=== PATIENT | female | born 1930 | race Caucasian/White ===

== ENCOUNTER 2017-03-04 00:46 | Observation (INO) | payer MEDICARE ==
[2017-03-04] VITALS (8 sets, daily range): BP systolic 126–140; BP diastolic 58–77; PULSE 77–105; RESP 16–20; TEMP 95.7–98.3; O2SAT 94–100
[~2017-03-04 00:46] MED LIST: ADVAI100I PO; ALBU6.7H INH; CODE60 PO; CYCL-36 PO; DYAZ37.52 PO; ISOS20TA PO; LEVO100T4 PO; NITR0.4S SL; OMEP20TA39 PO; TIOT18I INH; TRAM50 PO; [UNRECOGNIZED DRUG - OTHER] PO
[2017-03-04] MEDS ORDERED: SODIUM CHLORIDE 0.9% FLUSH 5 ML FLUSH IV FLUSH PRN (02:30)
[2017-03-04 02:35] LABS: AUTOMATED NEUTROPHIL # 4.6 TH/MM3 (1.8-7.7); BASOPHIL % 0.5 % (0.0-2.0); EOSINOPHIL % 0.4 % (0.0-4.0); HEMATOCRIT 39.7 % (35.0-46.0); LYMPH % 17.5 % (9.0-44.0); LYMPHOCYTE # 1.1 TH/MM3 (1.0-4.8); MEAN CELL VOLUME 85.9 FL (80.0-100.0); MEAN CORPUSCULAR HEMOGLOBIN 28.1 PG (27.0-34.0); MEAN CORPUSCULAR HGB CONC 32.7 % (32.0-36.0); MONO % 5.5 % (0.0-8.0); NEUT % 76.1 % (16.0-70.0); PLATELET COUNT 94 TH/MM3 (150-450); RED BLOOD COUNT 4.62 MIL/MM3 (4.00-5.30)
[2017-03-04 02:37] LABS: HEMO FLAGS AUTO DIFF
[2017-03-04 02:40] LABS: BACTERIA, URINE MOD /hpf; BLOOD, URINE NEG (NEG); COMMENT (UR) CATH-CULTURE IND; CULTURE IF INDICATED CATH CULTURE IND; GLUCOSE,URINE NEG (NEG); KETONE, URINE NEG (NEG); MUCUS URINE FEW /lpf (OCC); NITRITE,URINE POS (NEG); PH, URINE 7.5 (5.0-8.5); SQUAMOUS EPITHELIAL CELL URINE <1 /hpf (0-5); URINE COLOR YELLOW (YELLW/STRAW)
[2017-03-04] MEDS ORDERED: SODIUM CHLOR 0.9% 1000 ML INJ 1,000 ML IV ONE ×2 (02:45→03:45)
[2017-03-04 02:46] LABS: APTT (PATIENT) 27.4 SEC (24.3-30.1); INTERNATIONAL NORMALIZED RATIO 1.1 RATIO; PROTHROMBIN TIME - PATIENT 12.3 SEC (9.8-11.6)
[2017-03-04] MEDS ORDERED: PRED10 PO (03:00)
[2017-03-04] MEDS ORDERED: METO5TAB3 PO (03:00)
[2017-03-04] MEDS ORDERED: KETOPROFEN TOPICAL ×2 (03:00)
[2017-03-04] MEDS ORDERED: KETO2CRE TOPICAL (03:00)
[2017-03-04] MEDS ORDERED: LORA-392 PO ×2 (03:00)
[2017-03-04] MEDS ORDERED: LIDO2GEL11 TOPICAL ×2 (03:00)
[2017-03-04] MEDS ORDERED: NITR0.4S SL ×2 (03:00)
[2017-03-04] MEDS ORDERED: HALOPERIDOL TOPICAL ×2 (03:00)
[2017-03-04] MEDS ORDERED: PROT40TA PO (03:00)
[2017-03-04] MEDS ORDERED: LEVO100T5 PO ×2 (03:00)
[2017-03-04] MEDS ORDERED: ULTR50TA5 PO (03:00)
[2017-03-04] MEDS ORDERED: MIRA3350 PO (03:00)
[2017-03-04] MEDS ORDERED: DULC10SU3 RECTAL ×2 (03:00)
[2017-03-04] MEDS ORDERED: VOLT1GEL4 (03:00)
[2017-03-04] MEDS ORDERED: BENA25CA4 (03:00)
[2017-03-04] MEDS ORDERED: ROBIDM5S (03:00)
[2017-03-04] MEDS ORDERED: CLAR10TA7 (03:00)
[2017-03-04] MEDS ORDERED: ISOS10TA3 PO ×2 (03:00)
[2017-03-04] MEDS ORDERED: LORAZEPAM TOPICAL ×2 (03:00)
[2017-03-04] MEDS ORDERED: ZOFR4TAB PO (03:00)
[2017-03-04] MEDS ORDERED: ALBU6.7H INH ×2 (03:00)
[2017-03-04 03:02] LABS: OVALOCYTES 1+ (NORMAL); PLATELET ESTIMATE SMEAR LOW (NORMAL); PLATELET MORPHOLOGY NORMAL (NORMAL); SCAN/DIFF AUTO DIFF CONFIRMED
[2017-03-04 03:09] LABS: ANION GAP 11 MEQ/L (5-15); AST (GOT) 50 U/L (15-37); BICARBONATE 29.3 MEQ/L (21.0-32.0); BLOOD UREA NITROGEN 17 MG/DL (7-18); CHLORIDE 94 MEQ/L (98-107); GLOMERULAR FILTRATION RATE 38 ML/MIN (>89); SODIUM (NA) 134 MEQ/L (136-145)
--- NOTE | 2017-03-04 03:12 | PD ---
HPI Chief Complaint: Medical Clearance Time Seen by Provider: 02:20 Travel History International Travel<30 days: No Contact w/Intl Traveler<30days: No Traveled to known affect area: No History of Present Illness HPI Is an 86 year-old woman presents to the emergency department brought in by EMS. She reportedly is on hospice, but doesn't want to be. She is in the process of quitting. She has most likely full-time caregivers. Caregiver states she's been more confused for the past several weeks. She was given antibiotics for UTI but hasn't been taking it. She reportedly flushed all her medications down the toilet. Caregiver reports that she also took 14 triamterene/HCTZ pills over the past day or so. Patient herself has no complaints at this time. She is a little bit disoriented, and a right much additional history. History Past Medical History Narrative Medical Hypothyroidism Anxiety Hypertension Heart disease Menopausal: Yes Social History Alcohol Use: No Tobacco Use: No Allergies-Medications (Allergen,Severity, Reaction): Coded Allergies: Augmentin (Verified Allergy, Severe, 03/04/17) Beta Blockers (Verified Allergy, Severe, 03/04/17) Flagyl (Verified Allergy, Severe, 03/04/17) Levaquin (Verified Allergy, Severe, 03/04/17) Morphine (Verified Allergy, Severe, 03/04/17) Potassium (Verified Allergy, Severe, RASH FROM POTASSIUM PILLS, 03/04/17) Seafood (Verified Allergy, Severe, 03/04/17) Lasix (Verified Allergy, Intermediate, 03/04/17) Amoxicillin (Verified Allergy, Unknown, 03/04/17) Spironolactone (Verified Allergy, Unknown, 03/04/17) Reported Meds & Prescriptions Reported Meds & Active Scripts Active Reported Simethicone 125 Mg Chw 125 Mg CHEW QID PRN Flexeril (Cyclobenzaprine HCl) 5 Mg Tab 5 Mg PO TID Bactroban Topical (Mupirocin) 22 Gm Cream 1 Applic TOPICAL BID Potassium Chloride Liq (Potassium Chloride) 20 Meq/15 Ml Soln 20 Meq PO TID Levsin-SL (Hyoscyamine Sulfate) 0.125 Mg Subl 0.125 Mg SL Q4H Lidoderm (Lidocaine) 5 % Adh..patch Demadex (Torsemide) 10 Mg Tab 10 Mg PO DAILY Senna-Tabs (Sennosides) 8.6 Mg Tab 8.6 Mg PO BID Miralax Powder (Polyethylene Glycol 3350 Powder) 17 Gm Powd 17 Gm PO DAILY Mix and dissolve one measuring cap-ful (17 grams) in water or juice. [Haloperidol Gel] 1 Ml TOPICAL Q4HR [Lorazepam Gel] 1 Ml TOPICAL Q4HR Voltaren (Diclofenac Sodium) 100 Gm Gel..gram. Metolazone 5 Mg Tab 5 Mg PO MONWEDFRI Prednisone 10 Mg Tab 10 Mg PO DAILY Benadryl Allergy (Diphenhydramine HCl) 25 Mg Cap Isosorbide Mononitrate 10 Mg Tab 10 Mg PO DAILY Take 2 doses 7 hours apart. Ativan (Lorazepam) 0.5 Mg Tab 0.5 Mg PO Q4H PRN Protonix (Pantoprazole Sodium) 40 Mg Tab 40 Mg PO DAILY Zofran (Ondansetron HCl) 4 Mg Tab 4 Mg PO Q6HR PRN Ultram (Tramadol HCl) 50 Mg Tab 25 Mg PO Q6H PRN Nitrostat SL (Nitroglycerin) 0.4 Mg Subl 0.4 Mg SL DIRECTED PRN 1 tablet under the tongue as needed for chest pain. Repeat every 5 minutes for a total of 3 DOSES or call 911 if NO relief. Levothyroxine (Levothyroxine Sodium) 100 Mcg Tab 100 Mcg PO DAILY [Ketoprofen Gel] 5 % TOPICAL TID Dulcolax Supp (Bisacodyl) 10 Mg Supp 10 Mg RECTAL DAILY PRN Proventil Hfa 6.7 GM Inh (Albuterol Sulfate) 90 Mcg/Act Aer 2 Puff INH Q4-6H PRN Claritin (Loratadine) 10 Mg Tablet Guaifenesin-Dm Liq (Guaifenesin/Dextromethorphan) 100-10 Mg/5 Ml Syrp Lidocaine Topical (Lidocaine HCl) 2 % Jel 1 Applic TOPICAL QID Ketoconazole Topical 2% Cream 1 Applic TOPICAL DAILY Review of Systems Except as stated in HPI: all other systems reviewed are Neg Physical Exam Narrative GENERAL: 86 year-old woman, confused but pleasant, no acute distress. SKIN: Focused skin assessment warm/dry. HEAD: Atraumatic. Normocephalic. EYES: Pupils equal and round. No scleral icterus. No injection or drainage. ENT: No nasal bleeding or discharge. Mucous membranes pink and moist. NECK: Trachea midline. No JVD. CARDIOVASCULAR: Regular rate and rhythm. No murmur appreciated. RESPIRATORY: No accessory muscle use. Clear to auscultation. Breath sounds equal bilaterally. GASTROINTESTINAL: Abdomen soft, non-tender, nondistended. Hepatic and splenic margins not palpable. MUSCULOSKELETAL: No obvious deformities. No clubbing. No cyanosis. No edema. NEUROLOGICAL: Awake and alert. Pleasantly confused. No gross deficits. PSYCHIATRIC: Appropriate mood and affect; insight and judgment normal. Data Data Last Documented VS Vital Signs Date Time Temp Pulse Resp B/P Pulse Ox O2 Delivery O2 Flow Rate FiO2 03/04/17 03:22 97 16 100 Room Air 03/04/17 00:52 98.3 140/76 Orders Complete Blood Count With Diff (03/04/17 02:26) Comprehensive Metabolic Panel (03/04/17 02:26) Prothrombin Time / Inr (Pt) (03/04/17 02:26) Act Partial Throm Time (Ptt) (03/04/17 02:26) Troponin I (03/04/17 02:26) Thyroid Stimulating Hormone (03/04/17 02:26) Urinalysis - C+S If Indicated (03/04/17 02:26) Lactic Acid Sepsis Protocol (03/04/17 02:26) Ecg Monitoring (03/04/17 02:26) Iv Access Insert/Monitor (03/04/17 02:26) Cath For Specimen (03/04/17 02:26) Oximetry (03/04/17 02:26) Sodium Chloride 0.9% Flush (Ns Flush) (03/04/17 02:30) Sodium Chlor 0.9% 1000 Ml Inj (Ns 1000 M (03/04/17 02:45) Ct Brain W/O Iv Contrast(Rout) (03/04/17 ) Urine Culture (03/04/17 02:15) Ceftriaxone Inj (Rocephin Inj) (03/04/17 03:45) Sodium Chlor 0.9% 1000 Ml Inj (Ns 1000 M (03/04/17 03:45) Admit Order (Ed Use Only) (03/04/17 ) Labs Laboratory Tests Test 03/04/17 02:15 White Blood Count 6.0 TH/MM3 Red Blood Count 4.62 MIL/MM3 Hemoglobin 13.0 GM/DL Hematocrit 39.7 % Mean Corpuscular Volume 85.9 FL Mean Corpuscular Hemoglobin 28.1 PG Mean Corpuscular Hemoglobin 32.7 % Concent Red Cell Distribution Width 20.0 % Platelet Count 94 TH/MM3 Mean Platelet Volume 8.8 FL Neutrophils (%) (Auto) 76.1 % Lymphocytes (%) (Auto) 17.5 % Monocytes (%) (Auto) 5.5 % Eosinophils (%) (Auto) 0.4 % Basophils (%) (Auto) 0.5 % Neutrophils # (Auto) 4.6 TH/MM3 Lymphocytes # (Auto) 1.1 TH/MM3 Monocytes # (Auto) 0.3 TH/MM3 Eosinophils # (Auto) 0.0 TH/MM3 Basophils # (Auto) 0.0 TH/MM3 CBC Comment AUTO DIFF Differential Comment AUTO DIFF CONFIRMED Platelet Estimate LOW Platelet Morphology Comment NORMAL Ovalocytes 1+ Prothrombin Time 12.3 SEC Prothromb Time International 1.1 RATIO Ratio Activated Partial 27.4 SEC Thromboplast Time Urine Color YELLOW Urine Turbidity HAZY Urine pH 7.5 Urine Specific [place] 1.014 Urine Protein TRACE mg/dL Urine Glucose (UA) NEG mg/dL Urine Ketones NEG mg/dL Urine Occult Blood NEG Urine Nitrite POS Urine Bilirubin NEG Urine Urobilinogen 8.0 MG/DL Urine Leukocyte Esterase SMALL Urine RBC 2 /hpf Urine WBC 17 /hpf Urine Squamous Epithelial <1 /hpf Cells Urine Amorphous Sediment RARE Urine Bacteria MOD /hpf Urine Mucus FEW /lpf Microscopic Urinalysis Comment CATH-CULTURE IND Sodium Level 134 MEQ/L Potassium Level 3.0 MEQ/L Chloride Level 94 MEQ/L Carbon Dioxide Level 29.3 MEQ/L Anion Gap 11 MEQ/L Blood Urea Nitrogen 17 MG/DL Creatinine 1.32 MG/DL Estimat Glomerular Filtration 38 ML/MIN Rate Random Glucose 96 MG/DL Lactic Acid Level 2.4 mmol/L Calcium Level 8.4 MG/DL Total Bilirubin 3.3 MG/DL Aspartate Amino Transf 50 U/L (AST/SGOT) Alanine Aminotransferase 23 U/L (ALT/SGPT) Alkaline Phosphatase 109 U/L Troponin I 0.08 NG/ML Total Protein 6.2 GM/DL Albumin 2.5 GM/DL Thyroid Stimulating Hormone 7.640 uIU/ML 3rd Gen [facility] Medical Decision Making Medical Screen Exam Complete: Yes Emergency Medical Condition: Yes Interpretation(s) LABS: CMP generally unremarkable. Lactate 2.4. Troponin 0.08 TSH a little bit elevated CBC generally unremarkable. Coags unremarkable CT head: Unremarkable. Differential Diagnosis Confusion, dementia, personality disorder, infection, other Narrative Course Medical decision making Is an 86 year-old woman presents to the emergency department without any real complaint. Caregiver states families concern she's been more confused over the past several weeks. Care was concerned she took 14 of her triamterene HCTZ pills. We'll check labs, CT, UA, reassess. FINAL: 86 year-old woman, altered mental status, evidence of UTI, reportedly flushing her medications down the toilet. We'll plan on admission for observation. I tried to call the patient's daughter, Aleksandra, [phone] , There is no answer. Diagnosis Primary Impression: UTI (urinary tract infection) Additional Impression: Altered mental status Admitting Information Admitting Physician Requests: Observation Wale Iverson MD Mar 04, 2017 03:12
[2017-03-04] MEDS ORDERED: POTA10SO12 PO ×2 (03:13)
[2017-03-04] MEDS ORDERED: LEVS0.124 SL (03:13)
[2017-03-04] MEDS ORDERED: DEMA10TA PO (03:13)
[2017-03-04] MEDS ORDERED: MUPI2%T TOPICAL ×2 (03:13)
[2017-03-04] MEDS ORDERED: LIDO5DIS5 ×2 (03:13)
[2017-03-04] MEDS ORDERED: SENN8.6T36 PO (03:13)
[2017-03-04] MEDS ORDERED: SIME1CHW13 CHEW ×2 (03:13)
[2017-03-04] MEDS ORDERED: CYCL5TAB PO (03:13)
--- NOTE | 2017-03-04 03:14 | RADRPT ---
EXAM DATE/TIME: 03/04/2017 03:04 [facility] COMPARISON: No previous studies available for comparison. INDICATIONS : Altered mental status. RADIATION DOSE: 33.86 CTDIvol (mGy) MEDICAL HISTORY : Hypertension. Chronic obstructive pulmonary disease. Hepatitis C. SURGICAL HISTORY : None. ENCOUNTER: Initial ACUITY: 1 day PAIN SCALE: 0/10 LOCATION: cranial TECHNIQUE: Multiple contiguous axial images were obtained of the head. Using automated exposure control and adj ustment of the mA and/or kV according to patient size, radiation dose was kept as low as reasonably a chievable to obtain optimal diagnostic quality images. FINDINGS: There is no evidence for intracranial hemorrhage, mass effect, mass lesions, edema, or extra-axial fl uid collections. The visualized bony structures appear intact. The ventricles are normal size for t he patient's age. There are no signs of acute infarction for technique. CONCLUSION: Unremarkable study. Chuckie Miranda MD on March 04, 2017 at 3:11 Board Certified Radiologist. This report was verified electronically.
[2017-03-04 03:16] LABS: ALKALINE PHOSPHATASE 109 U/L (45-117); ALT (GPT) 23 U/L (10-53); TOTAL BILIRUBIN ADULT 3.3 MG/DL (0.2-1.0)
[2017-03-04] MEDS ORDERED: cefTRIAXone INJ 1,000 MG in SODIUM CHLORIDE 0.9% INJ 100 ML IV ONE (03:45)
[2017-03-04] MEDS ORDERED: NALOXONE HCL 0.4 MG/ML AMP IV PRN (04:15)
[2017-03-04] MEDS ORDERED: SODIUM CHLORIDE 0.9% FLUSH 10 ML FLUSH IV FLUSH PRN (04:15)
[2017-03-04] MEDS ORDERED: POTASSIUM CHLORIDE 25 MEQ EFFERVESCENT TAB PO ONE (04:15)
[2017-03-04 04:31] LABS: LACTIC ACID GHOST NOT REPORTABLE
[2017-03-04] MEDS: SODIUM CHLORIDE 0.9% FLUSH 10 ML FLUSH IV FLUSH SCH ×2 (07:50→21:00)
--- NOTE | 2017-03-04 07:57 | EKG ---
Date Performed: 03/04/2017 Time Performed: 00:51:21 PTAGE: 86 years EKG: Probable multifocal atrial tachycardia RIGHT BUNDLE BRANCH BLOCK LEFT ANTERIOR FASCICULAR B LOCK MODERATE VOLTAGE CRITERIA FOR LVH, CONSIDER NORMAL VARIANT POSSIBLE SEPTAL MYOCARDIAL INFARCTION ABNORMAL ECG NO PREVIOUS TRACING DOCTOR: Sergio Bejarano Interpretating Date/Time 03/04/2017 07:56:11
--- NOTE | 2017-03-04 08:59 | HHI.HP ---
HPI Service [facility] Primary Care Physician No Primary Care Physician Admission Diagnosis UTI, delirium Diagnoses: Chief Complaint: UTI, confusion Travel History International Travel<30 Days: No Contact w/Intl Traveler <30 Da: No Traveled to Known Affected Are: No History of Present Illness 86-year-old female with history of anxiety, hypertension, hypothyroidism, presents here via EMS for confusion. The patient is currently awake, alert, oriented to person, [place], [place], year 2017, president [place], but not month/date. She is an extremely poor historian, unable to provide her medical history, and she is fixed on discussing that she is being held captive here and just wants to go home with her family. She states her family has been trying to get her out of hospice for two weeks now. The patient states she wants to go home today "no matter what". She says she will be going home with her daughter Edyta. Per ER MD note, Caregiver reported she's been more confused for the past several weeks; She was given antibiotics for UTI but hasn't been taking it; She reportedly flushed all her medications down the toilet. Caregiver reports that she also took 14 triamterene/HCTZ pills over the past day or so. Attempted discussing any symptoms the patient may have, and she immediately starts discussing her discharge, states "why won't you just let me go home?" She did eventually deny any fever/chills, abdominal pain, dysuria, increased urinary frequency/urgency. She states she has been eating well. She denies any medical complaints, although she does show me her legs which appear to be swollen, and states "does this look like hospice to you?" Otherwise no acute events overnight. The patient states her family will be coming today to get her. Review of Systems ROS Limitations: Altered Mental Status, Poor Historian Except as stated in HPI: all other systems reviewed are Neg Past Family Social History Past Medical History Patient unable to recall her medical history, per EMR: Hypothyroidism Anxiety Hypertension Past Surgical History Patient unable to recall Reported Medications Simethicone 125 Mg Chw 125 Mg CHEW QID PRN Flexeril (Cyclobenzaprine HCl) 5 Mg Tab 5 Mg PO TID Bactroban Topical (Mupirocin) 22 Gm Cream 1 Applic TOPICAL BID Potassium Chloride Liq (Potassium Chloride) 20 Meq/15 Ml Soln 20 Meq PO TID Levsin-SL (Hyoscyamine Sulfate) 0.125 Mg Subl 0.125 Mg SL Q4H Lidoderm (Lidocaine) 5 % Adh..patch Demadex (Torsemide) 10 Mg Tab 10 Mg PO DAILY Senna-Tabs (Sennosides) 8.6 Mg Tab 8.6 Mg PO BID Miralax Powder (Polyethylene Glycol 3350 Powder) 17 Gm Powd 17 Gm PO DAILY Mix and dissolve one measuring cap-ful (17 grams) in water or juice. [Haloperidol Gel] 1 Ml TOPICAL Q4HR [Lorazepam Gel] 1 Ml TOPICAL Q4HR Voltaren (Diclofenac Sodium) 100 Gm Gel..gram. Metolazone 5 Mg Tab 5 Mg PO MONWEDFRI Prednisone 10 Mg Tab 10 Mg PO DAILY Benadryl Allergy (Diphenhydramine HCl) 25 Mg Cap Isosorbide Mononitrate 10 Mg Tab 10 Mg PO DAILY Take 2 doses 7 hours apart. Ativan (Lorazepam) 0.5 Mg Tab 0.5 Mg PO Q4H PRN Protonix (Pantoprazole Sodium) 40 Mg Tab 40 Mg PO DAILY Zofran (Ondansetron HCl) 4 Mg Tab 4 Mg PO Q6HR PRN Ultram (Tramadol HCl) 50 Mg Tab 25 Mg PO Q6H PRN Nitrostat SL (Nitroglycerin) 0.4 Mg Subl 0.4 Mg SL DIRECTED PRN 1 tablet under the tongue as needed for chest pain. Repeat every 5 minutes for a total of 3 DOSES or call 911 if NO relief. Levothyroxine (Levothyroxine Sodium) 100 Mcg Tab 100 Mcg PO DAILY [Ketoprofen Gel] 5 % TOPICAL TID Dulcolax Supp (Bisacodyl) 10 Mg Supp 10 Mg RECTAL DAILY PRN Proventil Hfa 6.7 GM Inh (Albuterol Sulfate) 90 Mcg/Act Aer 2 Puff INH Q4-6H PRN Claritin (Loratadine) 10 Mg Tablet Guaifenesin-Dm Liq (Guaifenesin/Dextromethorphan) 100-10 Mg/5 Ml Syrp Lidocaine Topical (Lidocaine HCl) 2 % Jel 1 Applic TOPICAL QID Ketoconazole Topical 2% Cream 1 Applic TOPICAL DAILY Allergies: Coded Allergies: Augmentin (Verified Allergy, Severe, 03/04/17) Beta Blockers (Verified Allergy, Severe, 03/04/17) Flagyl (Verified Allergy, Severe, 03/04/17) Levaquin (Verified Allergy, Severe, 03/04/17) Morphine (Verified Allergy, Severe, 03/04/17) Seafood (Verified Allergy, Severe, 03/04/17) Lasix (Verified Allergy, Intermediate, 03/04/17) Amoxicillin (Verified Allergy, Unknown, 03/04/17) Spironolactone (Verified Allergy, Unknown, 03/04/17) Active Ordered Medications Current Medications Medications (Trade) Dose Ordered Sig/Anupama Route Start Time Stop Time Status Last Admin (NS Flush) 2 ml UNSCH PRN IV FLUSH 03/04/17 04:15 (NS Flush) 2 ml BID IV FLUSH 03/04/17 09:00 03/04/17 07:50 Naloxone HCl 0.4 mg 0.4 mg UNSCH PRN IV 03/04/17 04:15 (Rocephin Inj/NS Inj) 100 ml @ 200 mls/hr Q12H IV 03/04/17 16:00 Family History Patient unable to provide Social History Denies any tobacco, alcohol, or drug use. Physical Exam Vital Signs Vital Signs Date Time Temp Pulse Resp B/P Pulse Ox O2 Delivery O2 Flow Rate FiO2 03/04/17 03:22 97 16 100 Room Air 03/04/17 00:52 98.3 105 16 140/76 97 Physical Exam GENERAL: Well-nourished, well-developed elderly female patient in [facility]. SKIN: Warm and dry. No rash. HEAD: Normocephalic. Atraumatic. EYES: Pupils equal and round. No scleral icterus. No injection or drainage. ENT: No nasal bleeding or discharge. Mucous membranes pink and moist. NECK: Supple. Trachea midline. CARDIOVASCULAR: Regular rate and rhythm. S1, S2 noted. No murmur appreciated. RESPIRATORY: No accessory muscle use. Clear to auscultation. Breath sounds equal bilaterally. GASTROINTESTINAL: Abdomen soft, non-tender, nondistended. Normoactive bowel sounds x4. MUSCULOSKELETAL: No obvious deformities. Bilateral legs edematous with chronic venous stasis changes, calves nontender to palpation. NEUROLOGICAL: Awake and alert, oriented to person, place, year/president however slightly confused throughout conversation. No obvious cranial nerve deficits. Motor grossly within normal limits. Normal speech. PSYCHIATRIC: Appropriate mood and affect; insight and judgment limited. Laboratory Laboratory Tests Test 03/04/17 03/04/17 02:15 05:10 White Blood Count 6.0 Red Blood Count 4.62 Hemoglobin 13.0 Hematocrit 39.7 Mean Corpuscular Volume 85.9 Mean Corpuscular Hemoglobin 28.1 Mean Corpuscular Hemoglobin 32.7 Concent Red Cell Distribution Width 20.0 Platelet Count 94 Mean Platelet Volume 8.8 Neutrophils (%) (Auto) 76.1 Lymphocytes (%) (Auto) 17.5 Monocytes (%) (Auto) 5.5 Eosinophils (%) (Auto) 0.4 Basophils (%) (Auto) 0.5 Neutrophils # (Auto) 4.6 Lymphocytes # (Auto) 1.1 Monocytes # (Auto) 0.3 Eosinophils # (Auto) 0.0 Basophils # (Auto) 0.0 CBC Comment AUTO DIFF Differential Comment AUTO DIFF CONFIRMED Platelet Estimate LOW Platelet Morphology Comment NORMAL Ovalocytes 1+ Prothrombin Time 12.3 Prothromb Time International 1.1 Ratio Activated Partial 27.4 Thromboplast Time Urine Color YELLOW Urine Turbidity HAZY Urine pH 7.5 Urine Specific [place] 1.014 Urine Protein TRACE Urine Glucose (UA) NEG Urine Ketones NEG Urine Occult Blood NEG Urine Nitrite POS Urine Bilirubin NEG Urine Urobilinogen 8.0 Urine Leukocyte Esterase SMALL Urine RBC 2 Urine WBC 17 Urine Squamous Epithelial <1 Cells Urine Amorphous Sediment RARE Urine Bacteria MOD Urine Mucus FEW Microscopic Urinalysis Comment CATH-CULTURE IND Sodium Level 134 Potassium Level 3.0 Chloride Level 94 Carbon Dioxide Level 29.3 Anion Gap 11 Blood Urea Nitrogen 17 Creatinine 1.32 Estimat Glomerular Filtration 38 Rate Random Glucose 96 Lactic Acid Level 2.4 1.9 Calcium Level 8.4 Total Bilirubin 3.3 Aspartate Amino Transf 50 (AST/SGOT) Alanine Aminotransferase 23 (ALT/SGPT) Alkaline Phosphatase 109 Troponin I 0.08 Total Protein 6.2 Albumin 2.5 Thyroid Stimulating Hormone 7.640 3rd Gen Date/Time Procedure Status Source Growth 03/04/17 02:15 Urine Culture Received Urine Catheterized Urine Pending Result Diagram: 03/04/17 0215 03/04/17 0215 Imaging Last Impressions Head CT 03/04/17 0000 Signed Impressions: Service Date/Time: Saturday, March 04, 2017 03:04 - CONCLUSION: Unremarkable study. Chuckie Miranda MD Assessment and Plan Problem List: (1) Altered mental status ICD Code: R41.82 Status: Acute (2) UTI (urinary tract infection) ICD Code: N39.0 Status: Acute Assessment and Plan 86-year-old female with history of anxiety, hypertension, hypothyroidism, presents here via EMS for confusion. Metabolic Encephalopathy: secondary to UTI. Head CT images reviewed, unremarkable. Given IVF boluses in the ER. On IV antibiotics for UTI. Monitor neuro checks. Consult PT. UTI: UA with +nitrites, +leuks, and bacteria. Continue on IV Rocephin. Monitor urine culture. NIRAV: secondary to dehydration. Also possibly secondary to patient overusing diuretic antihypertensive medications. Cr 1.32. Given IVF boluses in ED. Repeat BMP. Hypokalemia: K 3.0. Suspect secondary to dehydration and poor oral intake. Given po KCl replacement however patient refusing to take. Monitor serum potassium levels. Elevated Troponin: patient denies any chest pain or angina equivalent. Troponin 0.08. Suspect secondary to kidney disease. Trend serial cardiac enzymes/EKGs. Bilateral Lower Extremity Edema: Suspect chronic venous stasis changes, however will check doppler U/S to r/out DVT. Hypertension: chronic, BP currently well controlled. Continue home medications. Monitor BP, adjust antihypertensives as needed. Hypothyroidism: Continue patient's levothyroxine. TSH elevated, check T3/T4. Suspect noncompliance with medications therefore will hold off on increasing synthroid at this time. Outpatient f/up with PCP. Anxiety: chronic, continue ativan prn. DVT Prophylaxis: teds/SCDs Discussed Condition With Patient, Dr. Peterson Attending Statement Seen in her bedroom in the presence of her nurse Miss Navarro, the patient did not wanted to eat anything during the day discussed with PA Mrs. Cindy Redmond to start IV fluids, will consult Palliative care and follow recommendations by Psychiatry, Director Of Audiology and Physical therapy for further management. Cindy Redmond PA-C Mar 04, 2017 08:59 Adryan Coffman MD Mar 04, 2017 16:56
[2017-03-04] MEDS ORDERED: LORazepam 0.5 MG TAB PO PRN (09:45)
[2017-03-04] MEDS ORDERED: POTASSIUM CHLORIDE 20 MEQ CONTROLLED RELEASE TAB PO ONE (09:45)
--- NOTE | 2017-03-04 11:30 | RADRPT ---
EXAM DATE/TIME: 03/04/2017 09:26 [facility] COMPARISON: US LEG BILATERAL VENOUS DOPPLER, October 15, 2009, 19:42. INDICATIONS : Bilateral leg swelling. MEDICAL HISTORY : Congestive heart failure. Chronic obstructive pulmonary disease. Gastroesophageal reflux disease. Thy roid disease. Corrective lenses. Coronary artery disease. Hypertension. Asthma. Diverticulitis. Hiata l hernia. Fractured vertebrae, lumbar and tibia. Arthritis. Claustrophobia. Cirrhosis. Hepatits. Skin cancer. SURGICAL HISTORY : Tonsillectomy.Appendectomy. Cholecystectomy.Bilateral cataract surgery. Right ear surgery. Partial co lectomy. Hysterectomy. section. Thyroidectomy. Skin cancer removed three times. Mastoid Surg damaris. ENCOUNTER: Initial ACUITY: 4 - 6 days PAIN SCORE: 4/10 LOCATION: Bilateral legs. TECHNIQUE: Venous ultrasound of the left and right leg was performed from the inguinal ligament to the proximal calf. Real-time, color Doppler and spectral tracing, compression and augmentation techniques were us ed. FINDINGS: RIGHT LEG: There is normal compressibility of the deep venous system from the inguinal region to the proximal ca lf. No echogenic clot is seen in the lumen of the common femoral, femoral, popliteal, and posterior tibial veins. There is a normal response of the venous system to proximal and distal augmentation an d respiration. LEFT LEG: There is normal compressibility of the deep venous system from the inguinal region to the proximal ca lf. No echogenic clot is seen in the lumen of the common femoral, femoral, popliteal, and posterior tibial veins. There is a normal response of the venous system to proximal and distal augmentation an d respiration. CONCLUSION: No evidence of deep venous thrombosis within the lower extremities. Gunnar Ingram MD on March 04, 2017 at 11:28 Board Certified Radiologist. This report was verified electronically.
[2017-03-04 16:52] LABS: MAGNESIUM 1.8 MG/DL (1.5-2.5)
[2017-03-04] MEDS ORDERED: CHOLECALCIFEROL (VIT D3) 5000 UNIT CAP PO ONE (17:00)
[2017-03-04] MEDS: cefTRIAXone INJ 1,000 MG in SODIUM CHLORIDE 0.9% INJ 100 ML IV SCH (17:14)
[2017-03-04] MEDS: NS + KCL 20 MEQ INJ 1,000 ML IV SCH (17:14)
[2017-03-04 17:23] LABS: FREE T3 1.61 PG/ML (2.18-3.98); FREE T4 1.28 NG/DL (0.76-1.46)
[2017-03-05] VITALS (7 sets, daily range): BP systolic 106–144; BP diastolic 56–74; PULSE 77–95; RESP 17–20; TEMP 96.6–98.6; O2SAT 93–98
[2017-03-05] MEDS: cefTRIAXone INJ 1,000 MG in SODIUM CHLORIDE 0.9% INJ 100 ML IV SCH ×2 (05:36→14:27)
[2017-03-05] MEDS: NS + KCL 20 MEQ INJ 1,000 ML IV SCH ×2 (05:37→17:10)
[2017-03-05] MEDS: LEVOTHYROXINE SODIUM 100 MCG TAB PO SCH (05:38)
[2017-03-05] MEDS: CHOLECALCIFEROL (VIT D3) 5000 UNIT CAP PO SCH (08:51)
[2017-03-05] MEDS: SODIUM CHLORIDE 0.9% FLUSH 10 ML FLUSH IV FLUSH SCH ×2 (08:52→20:58)
[2017-03-05 09:37] LABS: AUTOMATED NEUTROPHIL # 3.3 TH/MM3 (1.8-7.7); BASOPHIL % 0.7 % (0.0-2.0); EOSINOPHIL # 0.1 TH/MM3 (0-0.4); EOSINOPHIL % 1.3 % (0.0-4.0); HEMATOCRIT 35.9 % (35.0-46.0); LYMPH % 17.7 % (9.0-44.0); LYMPHOCYTE # 0.8 TH/MM3 (1.0-4.8); MEAN CELL VOLUME 85.6 FL (80.0-100.0); MEAN CORPUSCULAR HEMOGLOBIN 28.6 PG (27.0-34.0); MEAN CORPUSCULAR HGB CONC 33.5 % (32.0-36.0); MONO % 6.2 % (0.0-8.0); NEUT % 74.1 % (16.0-70.0); PLATELET COUNT 91 TH/MM3 (150-450); RED BLOOD COUNT 4.19 MIL/MM3 (4.00-5.30); RED CELL DISTRIBUTION WIDTH 20.1 % (11.6-17.2); WHITE BLOOD COUNT 4.4 TH/MM3 (4.0-11.0)
[2017-03-05 09:45] LABS: HEMO FLAGS AUTO DIFF
--- NOTE | 2017-03-05 09:59 | HHI.PR ---
Subjective Remarks Follow up for NIRAV, UTI, encephalopathy, delirium, paranoia. The patient is currently sleeping upon my arrival, easily awakens. She is oriented to person, place, and year today, however is very paranoid. She refuses to eat because she says it's "filled with poison". We discussed possibly trying an Ensure shake however she is still hesitant about eating anything. [employer] at bedside attempting to feed her breakfast. Patient states she would consider maybe a gingerale. When I asked if her daughter was coming back today, she says "well she's been trying but the phones are tapped". The patient did complain about an episode of left chest pain that last for a few hours last night. She is unable to further describe the pain, states "it just hurt so bad". She denies any associated shortness of breath, nausea/ vomiting, or diaphoresis. She states the pain went away on its own sometime overnight. Denies any current chest pain. Objective Vitals Vital Signs Date Time Temp Pulse Resp B/P Pulse Ox O2 Delivery O2 Flow Rate FiO2 03/05/17 07:24 98.6 81 20 118/62 94 03/05/17 04:00 96.6 81 18 116/74 95 03/05/17 00:00 96.8 81 17 143/60 98 03/04/17 23:09 81 03/04/17 20:58 98.2 77 18 128/77 94 03/04/17 17:16 97.5 85 18 130/61 97 03/04/17 15:04 97.0 102 20 126/58 95 03/04/17 12:00 95.7 84 20 135/63 97 I/O 03/04/17 03/04/17 03/04/17 03/05/17 03/05/17 03/05/17 07:00 15:00 23:00 07:00 15:00 23:00 Intake Total 400 ml Balance 400 ml Intake IV Total 400 ml # Voids 2 # Bowel Movements 0 Result Diagram: 03/05/17 0844 03/04/17 1534 Imaging Last Impressions Lower Extremity Ultrasound 03/04/17 0000 Signed Impressions: Service Date/Time: Saturday, March 04, 2017 09:26 - CONCLUSION: No evidence of deep venous thrombosis within the lower extremities. Gunnar Ingram MD Head CT 03/04/17 0000 Signed Impressions: Service Date/Time: Saturday, March 04, 2017 03:04 - CONCLUSION: Unremarkable study. Chuckie Miranda MD Objective Remarks GENERAL: Well-nourished, well-developed elderly female patient in [facility]. SKIN: Warm and dry. No rash. HEENT: Normocephalic. Atraumatic.Pupils equal and round. Mucous membranes pink and moist. NECK: Supple. Trachea midline. CARDIOVASCULAR: Regular rate and rhythm. 2/6 systolic murmur noted. RESPIRATORY: No accessory muscle use. Clear to auscultation. Breath sounds equal bilaterally. GASTROINTESTINAL: Abdomen soft, non-tender, nondistended. Normoactive bowel sounds x4. MUSCULOSKELETAL: No obvious deformities. Bilateral legs edematous with chronic venous stasis changes. NEUROLOGICAL: Awake and alert, oriented to person, place, year/president however confused and paranoid throughout conversation. No obvious cranial nerve deficits. Motor grossly within normal limits. Normal speech. PSYCHIATRIC: Paranoid mood; insight and judgment limited. Medications and IVs Current Medications Medications (Trade) Dose Ordered Sig/Anupama Route Start Time Stop Time Status Last Admin (NS Flush) 2 ml UNSCH PRN IV FLUSH 03/04/17 04:15 (NS Flush) 2 ml BID IV FLUSH 03/04/17 09:00 03/05/17 08:52 Naloxone HCl 0.4 mg 0.4 mg UNSCH PRN IV 03/04/17 04:15 (Rocephin Inj/NS Inj) 100 ml @ 200 mls/hr Q12H IV 03/04/17 16:00 03/05/17 05:36 (Synthroid) 100 mcg DAILY@06 PO 03/05/17 06:00 03/05/17 05:38 Lorazepam 0.5 mg 0.5 mg Q6H PRN PO 03/04/17 09:45 (NS + KCl 20 Meq Inj) 1,000 ml @ 84 mls/hr [id number] IV 03/04/17 17:00 03/05/17 05:37 (Vitamin D3) 5,000 units DAILY PO 03/05/17 09:00 03/05/17 08:51 A/P Problem List: (1) Altered mental status ICD Code: R41.82 Status: Acute (2) UTI (urinary tract infection) ICD Code: N39.0 Status: Acute Assessment and Plan 86-year-old female with history of anxiety, hypertension, hypothyroidism, presents here via EMS for confusion. Metabolic Encephalopathy: secondary to UTI. Head CT images reviewed, unremarkable. Given IVF boluses in the ER. On IV antibiotics for UTI. Monitor neuro checks. Consult PT, recommends HHC but needs supervision for safety. Patient reportedly recently on hospice however wants to revoke hospice, now patient refusing food/medications, will consult Palliative Care for assistance. Paranoia/Delirium: possibly related to UTI however patient's daughter report this has been going on for awhile. Patient refusing medications and food. Consult psychiatry. UTI: UA with +nitrites, +leuks, and bacteria. Continue on IV Rocephin. Monitor urine culture. NIRAV: secondary to dehydration. Also possibly secondary to patient overusing diuretic antihypertensive medications. Cr 1.32. Given IVF boluses in ED, now on maintenance IVF as patient is not eating. Repeat BMP shows improvement, continue to monitor. Hypokalemia: K 3.0. Suspect secondary to dehydration and poor oral intake. Given po KCl replacement however patient refusing to take. Started on IV NS with KCl. Monitor serum potassium levels. Labs pending today. Elevated Troponin: patient initially denied any chest pain or angina equivalent. Troponin 0.08, 0.11, 0.12. Suspect secondary to kidney disease. Patient did report episode of chest pain overnight, resolved on its own. Will repeat troponin/EKG. Bilateral Lower Extremity Edema: Suspect chronic venous stasis changes, Doppler U/S negative for DVT. Elevation. Rigo swenson. Hypertension: chronic, BP currently well controlled. Continue home medications. Monitor BP, adjust antihypertensives as needed. Hypothyroidism: Continue patient's levothyroxine. TSH elevated, T3 low. Suspect noncompliance with medications therefore will hold off on increasing synthroid at this time. Outpatient f/up with PCP. Anxiety: chronic, continue ativan prn. DVT Prophylaxis: teds/SCDs Attending Statement Discussed with [facility] Mrs. Cindy Redmond, seen by Psychiatry specialist with Diagnosis of Delirium recommended to start Abilify 1 mg daily PRN continue present care probable discharge in am tomorrow. replacing Potassium RuyCindy Merlin MANNIE Mar 05, 2017 09:59 Adryan Coffman MD Mar 05, 2017 17:20
[2017-03-05 10:04] LABS: BICARBONATE 23.2 MEQ/L (21.0-32.0); POTASSIUM 3.2 MEQ/L (3.5-5.1)
[2017-03-05 10:25] LABS: PLATELET ESTIMATE SMEAR LOW (NORMAL); PLATELET MORPHOLOGY NORMAL (NORMAL); SCAN/DIFF AUTO DIFF CONFIRMED
--- NOTE | 2017-03-05 12:27 | PD.CONS ---
Consult Service Palliative Care Consult Requested By [facility] Physician Priya Primary Care Physician Reason for Consultation a. To assist with evaluation and management of symptoms including: confusion b. To assist medical decision maker(s) with: better understanding of current medical conditions; weighing benefits/burdens of medical treatment options; making medical treatment decisions. HPI History of Present Illness Patient is a 86-year-old with a past medical history significant for hypothyroidism, anxiety, dementia, hypertension came into the emergency room for agitation and confusion. Caregiver reported that patient has been more confused for several weeks. Patient has recurrent UTIs and was given antibiotics for it. Patient reportedly flush overmedication down the toilet. She is a hospice patient, and reportedly been on hospice for 2 years. In the ER : * Temperature is 98.3, pulse is 105, respirations 16, blood pressure is 140/76 pulse ox is 97% * WBC 6.0, hemoglobin 13.0, hematocrit 39.7, platelet is 94 * Sodium is 134, potassium is 3.0, chloride is 94, bicarbonate is 29.3, BUN 17, creatinine is 1.32. * PT 12.3, INR is 1.1, PTT 27.4 * Troponin I is 0.08, * EKG show RBBB, left anterior fasicular block. Possible septal MN, abnormal ECG * AST is 50, ALTs 23, alkaline phosphatase is 109, albumin is 2.5 * TSH is 7.6 * UA is positive for nitrate and cultures are indicated and depending. * CT shows no evidence of intracranial hemorrhage, mass effect, lesions, edema or extra-axial fluid. No signs of acute infarction. * Lower extremity ultrasound negative for DVT. Patient placed on observation status, and care transferred to hospitalist. Patient is being treated for UTI with IV Rocephin. Her acute kidney injury is likely secondary to dehydration and given IV fluids. Trend serial enzymes ordered. TSH is elevated and her suspicious that patient has not been compliant. Increase his Synthroid has been held off. Patient remains confused and refused to eat. Psych was consulted. Palliative care was also consulted to review goals of care. On my visit, patient has difficulty in hearing. When she does hear things correctly, she often trails off and answer something totally different. I ask her if she has any discomfort. She said "I am 89 years old you know." Pt is 86 years of age is confused. On my visit, pt has her lunch tray in front of her and was eating. Nurse document she did take her meds this morning. She was not agitated and was pleasant, but confused on my visit. Function/Cognitive Trajectory I called pt's daughter Patricia, who was busy and recommend for me to call pt's other daughter Hilda [phone]. For the brief amount of time I was able to speak with Patricia, she stated pt was on hospice. I called and left Hilda a message. I got in touch with Hilda. Pt has been on hospice for 2 years, and per daughter , pt's was admitted due to cardiac issues. She has hx of CHF and poorly controlled edema that has been difficult to manage despite mutltiple diurectics. She has O2 at home at which she is non-compliant. Pt was not confused and mentally sharp, per daughter until 5/4 of this year where pt pain has worsen and was overmedicated. She was sleeping until family ask hospice to stop giving medication. Pt became more alert and responsive, but since then she has been totally confused, paranoid, thinking that the she is constantly being monitored. Pt constantly think someone poisoned her food, endorse she does not want hospice. Review of Systems ROS Limitations: Clinical Condition (confused) Past Family Social History Coded Allergies: Augmentin (Verified Allergy, Severe, 03/04/17) Beta Blockers (Verified Allergy, Severe, 03/04/17) Flagyl (Verified Allergy, Severe, 03/04/17) Levaquin (Verified Allergy, Severe, 03/04/17) Morphine (Verified Allergy, Severe, 03/04/17) Seafood (Verified Allergy, Severe, 03/04/17) Lasix (Verified Allergy, Intermediate, 03/04/17) Amoxicillin (Verified Allergy, Unknown, 03/04/17) Spironolactone (Verified Allergy, Unknown, 03/04/17) Past Medical History Patient unable to recall her medical history, per EMR: Hypothyroidism Anxiety Hypertension Past Surgical History Patient unable to recall Reported Medications Simethicone 125 Mg Chw 125 Mg CHEW QID PRN Flexeril (Cyclobenzaprine HCl) 5 Mg Tab 5 Mg PO TID Bactroban Topical (Mupirocin) 22 Gm Cream 1 Applic TOPICAL BID Potassium Chloride Liq (Potassium Chloride) 20 Meq/15 Ml Soln 20 Meq PO TID Levsin-SL (Hyoscyamine Sulfate) 0.125 Mg Subl 0.125 Mg SL Q4H Lidoderm (Lidocaine) 5 % Adh..patch Demadex (Torsemide) 10 Mg Tab 10 Mg PO DAILY Senna-Tabs (Sennosides) 8.6 Mg Tab 8.6 Mg PO BID Miralax Powder (Polyethylene Glycol 3350 Powder) 17 Gm Powd 17 Gm PO DAILY Mix and dissolve one measuring cap-ful (17 grams) in water or juice. [Haloperidol Gel] 1 Ml TOPICAL Q4HR [Lorazepam Gel] 1 Ml TOPICAL Q4HR Voltaren (Diclofenac Sodium) 100 Gm Gel..gram. Metolazone 5 Mg Tab 5 Mg PO MONWEDFRI Prednisone 10 Mg Tab 10 Mg PO DAILY Benadryl Allergy (Diphenhydramine HCl) 25 Mg Cap Isosorbide Mononitrate 10 Mg Tab 10 Mg PO DAILY Take 2 doses 7 hours apart. Ativan (Lorazepam) 0.5 Mg Tab 0.5 Mg PO Q4H PRN Protonix (Pantoprazole Sodium) 40 Mg Tab 40 Mg PO DAILY Zofran (Ondansetron HCl) 4 Mg Tab 4 Mg PO Q6HR PRN Ultram (Tramadol HCl) 50 Mg Tab 25 Mg PO Q6H PRN Nitrostat SL (Nitroglycerin) 0.4 Mg Subl 0.4 Mg SL DIRECTED PRN 1 tablet under the tongue as needed for chest pain. Repeat every 5 minutes for a total of 3 DOSES or call 911 if NO relief. Levothyroxine (Levothyroxine Sodium) 100 Mcg Tab 100 Mcg PO DAILY [Ketoprofen Gel] 5 % TOPICAL TID Dulcolax Supp (Bisacodyl) 10 Mg Supp 10 Mg RECTAL DAILY PRN Proventil Hfa 6.7 GM Inh (Albuterol Sulfate) 90 Mcg/Act Aer 2 Puff INH Q4-6H PRN Claritin (Loratadine) 10 Mg Tablet Guaifenesin-Dm Liq (Guaifenesin/Dextromethorphan) 100-10 Mg/5 Ml Syrp Lidocaine Topical (Lidocaine HCl) 2 % Jel 1 Applic TOPICAL QID Ketoconazole Topical 2% Cream 1 Applic TOPICAL DAILY Current Medications Medications (Trade) Dose Ordered Sig/Anupama Route Start Time Stop Time Status Last Admin (NS Flush) 2 ml UNSCH PRN IV FLUSH 6/14/17 04:15 (NS Flush) 2 ml BID IV FLUSH 03/04/17 09:00 03/05/17 08:52 Naloxone HCl 0.4 mg 0.4 mg UNSCH PRN IV 03/04/17 04:15 (Rocephin Inj/NS Inj) 100 ml @ 200 mls/hr Q12H IV 03/04/17 16:00 03/05/17 05:36 (Synthroid) 100 mcg DAILY@06 PO 03/05/17 06:00 03/05/17 05:38 Lorazepam 0.5 mg 0.5 mg Q6H PRN PO 03/04/17 09:45 (NS + KCl 20 Meq Inj) 1,000 ml @ 84 mls/hr [id number] IV 03/04/17 17:00 03/05/17 05:37 (Vitamin D3) 5,000 units DAILY PO 03/05/17 09:00 03/05/17 08:51 Family History Patient unable to provide Substance Use Tobacco:denies Alcohol:denies Prescription med abuse:denies Illicits:denies Psychosocial History Pt was in real estate. Born in [place]. Pt has 4 living children. Pt say she is divorce. Patricia Beltran (daughter) [phone] or [phone]. Aleksandra Padilla (daughter) [phone] Hilda (daughter) [phone] Liban phone number unknown ( per daughter patricia, he is the health care surrogate and is also an anesthesiologist). Spiritual/Cultural Factors unknown Physical Exam Vital Signs Date Time Temp Pulse Resp B/P Pulse Ox O2 Delivery O2 Flow Rate FiO2 03/05/17 11:29 98.5 95 20 144/74 93 03/05/17 07:24 98.6 81 20 118/62 94 03/05/17 04:00 96.6 81 18 116/74 95 03/05/17 00:00 96.8 81 17 143/60 98 03/04/17 23:09 81 03/04/17 20:58 98.2 77 18 128/77 94 03/04/17 17:16 97.5 85 18 130/61 97 03/04/17 15:04 97.0 102 20 126/58 95 03/04/17 03/05/17 19:00 07:00 Intake Total 400 ml Balance 400 ml Intake IV Total 400 ml # Voids 2 # Bowel Movements 0 Exam CONSTITUTIONAL/GENERAL: This is an adequately nourished patient, not failure to thrive. Elderly women, pleasantly confused SKIN: No jaundice, rashes, or lesions. Ecchymoses on upper extremities. No wounds seen anteriorly. Skin temperature appropriate. Not diaphoretic. HEAD: Atraumatic. Normocephalic. EYES: Pupils equal and round and reactive. Extraocular motions intact. No scleral icterus. No injection or drainage. Fundi not examined. ENT: Hearing grossly normal. Nose without bleeding or purulent drainage. Throat without visible erythema, exudates, masses, or lesions. NECK: Trachea midline. Supple, nontender. No palpable thyroid enlargement or nodularity. CARDIOVASCULAR: Regular rate and rhythm without murmurs, gallops, or rubs. No JVD. Peripheral pulses symmetric. RESPIRATORY/CHEST: Symmetric, unlabored respirations. Clear to auscultation. Breath sounds equal bilaterally. No wheezes, rales, or rhonchi. GASTROINTESTINAL: Abdomen soft, non-tender, nondistended. No hepato-splenomegaly , or palpable masses. No guarding. Bowel sounds present. GENITOURINARY: Without palpable bladder distension. Nair catheter in place. MUSCULOSKELETAL: Extremities without clubbing, cyanosis, or edema. No joint tenderness or effusion noted. No calf tenderness. No mottling or clubbing. LYMPHATICS: No palpable cervical or supraclavicular adenopathy. NEUROLOGICAL: Awake and alert. Motor and sensory grossly within normal limits. Follow some commands. Cognitively sharp. PSYCHIATRIC: Confused. No anxious on my visit.. Diagnostic Tests Laboratory Laboratory Tests Test 03/04/17 03/04/17 03/04/17 03/04/17 02:15 05:10 11:34 15:34 White Blood Count 6.0 TH/MM3 (4.0-11.0) Red Blood Count 4.62 MIL/MM3 (4.00-5.30) Hemoglobin 13.0 GM/DL (11.6-15.3) Hematocrit 39.7 % (35.0-46.0) Mean Corpuscular Volume 85.9 FL (80.0-100.0) Mean Corpuscular Hemoglobin 28.1 PG (27.0-34.0) Mean Corpuscular Hemoglobin 32.7 % Concent (32.0-36.0) Red Cell Distribution Width 20.0 % (11.6-17.2) Platelet Count 94 TH/MM3 (150-450) Mean Platelet Volume 8.8 FL (7.0-11.0) Neutrophils (%) (Auto) 76.1 % (16.0-70.0) Lymphocytes (%) (Auto) 17.5 % (9.0-44.0) Monocytes (%) (Auto) 5.5 % (0.0-8.0) Eosinophils (%) (Auto) 0.4 % (0.0-4.0) Basophils (%) (Auto) 0.5 % (0.0-2.0) Neutrophils # (Auto) 4.6 TH/MM3 (1.8-7.7) Lymphocytes # (Auto) 1.1 TH/MM3 (1.0-4.8) Monocytes # (Auto) 0.3 TH/MM3 (0-0.9) Eosinophils # (Auto) 0.0 TH/MM3 (0-0.4) Basophils # (Auto) 0.0 TH/MM3 (0-0.2) CBC Comment AUTO DIFF Differential Comment AUTO DIFF CONFIRMED Platelet Estimate LOW (NORMAL) Platelet Morphology Comment NORMAL (NORMAL) Ovalocytes 1+ (NORMAL) Prothrombin Time 12.3 SEC (9.8-11.6) Prothromb Time International 1.1 RATIO Ratio Activated Partial 27.4 SEC Thromboplast Time (24.3-30.1) Urine Color YELLOW (YELLW/STRAW) Urine Turbidity HAZY (CLEAR) Urine pH 7.5 (5.0-8.5) Urine Specific Josephine 1.014 (1.002-1.035) Urine Protein TRACE mg/dL (NEG-TRACE) Urine Glucose (UA) NEG mg/dL (NEG) Urine Ketones NEG mg/dL (NEG) Urine Occult Blood NEG (NEG) Urine Nitrite POS (NEG) Urine Bilirubin NEG (NEG) Urine Urobilinogen 8.0 MG/DL (LESS THAN 2.0) Urine Leukocyte Esterase SMALL (NEG) Urine RBC 2 /hpf (0-3) Urine WBC 17 /hpf (0-5) Urine Squamous Epithelial <1 /hpf (0-5) Cells Urine Amorphous Sediment RARE Urine Bacteria MOD /hpf (NONE) Urine Mucus FEW /lpf (OCC) Microscopic Urinalysis Comment CATH-CULTURE IND Sodium Level 134 MEQ/L 137 MEQ/L (136-145) (136-145) Potassium Level 3.0 MEQ/L 3.0 MEQ/L (3.5-5.1) (3.5-5.1) Chloride Level 94 MEQ/L 102 MEQ/L (98-107) (98-107) Carbon Dioxide Level 29.3 MEQ/L 27.0 MEQ/L (21.0-32.0) (21.0-32.0) Anion Gap 11 MEQ/L (5-15) 8 MEQ/L (5-15) Blood Urea Nitrogen 17 MG/DL (7-18) 16 MG/DL (7-18) Creatinine 1.32 MG/DL 1.13 MG/DL (0.50-1.00) (0.50-1.00) Estimat Glomerular Filtration 38 ML/MIN (>89) 45 ML/MIN (>89) Rate Random Glucose 96 MG/DL 78 MG/DL (74-106) (74-106) Lactic Acid Level 2.4 mmol/L 1.9 mmol/L (0.4-2.0) (0.4-2.0) Calcium Level 8.4 MG/DL 8.1 MG/DL (8.5-10.1) (8.5-10.1) Total Bilirubin 3.3 MG/DL (0.2-1.0) Aspartate Amino Transf 50 U/L (15-37) (AST/SGOT) Alanine Aminotransferase 23 U/L (10-53) (ALT/SGPT) Alkaline Phosphatase 109 U/L (45-117) Troponin I 0.08 NG/ML 0.11 NG/ML 0.12 NG/ML (0.02-0.05) (0.02-0.05) (0.02-0.05) Total Protein 6.2 GM/DL (6.4-8.2) Albumin 2.5 GM/DL (3.4-5.0) Thyroid Stimulating Hormone 7.640 uIU/ML 3rd Gen (0.358-3.740) Total Creatine Kinase 48 U/L (26-192) 44 U/L (26-192) 25-Hydroxy Vitamin D Total 7.0 ng/ML (30-100) Magnesium Level 1.8 MG/DL (1.5-2.5) Vitamin B12 Level 887 PG/ML (193-986) Free Thyroxine 1.28 NG/DL (0.76-1.46) Free Triiodothyronine (T3) 1.61 PG/ML pg/dL (2.18-3.98) Test 03/05/17 08:44 White Blood Count 4.4 TH/MM3 (4.0-11.0) Red Blood Count 4.19 MIL/MM3 (4.00-5.30) Hemoglobin 12.0 GM/DL (11.6-15.3) Hematocrit 35.9 % (35.0-46.0) Mean Corpuscular Volume 85.6 FL (80.0-100.0) Mean Corpuscular Hemoglobin 28.6 PG (27.0-34.0) Mean Corpuscular Hemoglobin 33.5 % Concent (32.0-36.0) Red Cell Distribution Width 20.1 % (11.6-17.2) Platelet Count 91 TH/MM3 (150-450) Mean Platelet Volume 8.8 FL (7.0-11.0) Neutrophils (%) (Auto) 74.1 % (16.0-70.0) Lymphocytes (%) (Auto) 17.7 % (9.0-44.0) Monocytes (%) (Auto) 6.2 % (0.0-8.0) Eosinophils (%) (Auto) 1.3 % (0.0-4.0) Basophils (%) (Auto) 0.7 % (0.0-2.0) Neutrophils # (Auto) 3.3 TH/MM3 (1.8-7.7) Lymphocytes # (Auto) 0.8 TH/MM3 (1.0-4.8) Monocytes # (Auto) 0.3 TH/MM3 (0-0.9) Eosinophils # (Auto) 0.1 TH/MM3 (0-0.4) Basophils # (Auto) 0.0 TH/MM3 (0-0.2) CBC Comment AUTO DIFF Differential Comment AUTO DIFF CONFIRMED Platelet Estimate LOW (NORMAL) Platelet Morphology Comment NORMAL (NORMAL) Sodium Level 137 MEQ/L (136-145) Potassium Level 3.2 MEQ/L (3.5-5.1) Chloride Level 102 MEQ/L (98-107) Carbon Dioxide Level 23.2 MEQ/L (21.0-32.0) Anion Gap 12 MEQ/L (5-15) Blood Urea Nitrogen 15 MG/DL (7-18) Creatinine 0.95 MG/DL (0.50-1.00) Estimat Glomerular Filtration 56 ML/MIN (>89) Rate Random Glucose 65 MG/DL (74-106) Calcium Level 7.9 MG/DL (8.5-10.1) Total Creatine Kinase 44 U/L (26-192) Troponin I 0.11 NG/ML (0.02-0.05) Result Diagram: 03/05/17 0844 03/05/17 0844 Microbiology Microbiology Date/Time Procedure Status Source Growth 03/04/17 02:15 Urine Culture Received Urine Catheterized Urine Pending Imaging Last Impressions Lower Extremity Ultrasound 03/04/17 0000 Signed Impressions: Service Date/Time: Saturday, March 04, 2017 09:26 - CONCLUSION: No evidence of deep venous thrombosis within the lower extremities. Gunnar Ingram MD Head CT 03/04/17 0000 Signed Impressions: Service Date/Time: Saturday, March 04, 2017 03:04 - CONCLUSION: Unremarkable study. Chuckie Miranda MD Patient/Family Conference Issues Discussed: * Palliative care role, purpose, approach * Additional medical, psychosocial, and spiritual history * Patients general health, functional status, and cognitive changes in the months leading up to the current hospitalization * Patient/family understanding of the current medical problems * Patient/family understanding of prognosis * Patients goals of care as best understood from advance directives and/or conversations and/or values * Current medical treatment options and benefits/burdens of those options * Likely scenarios comparing ongoing aggressive care with a transition to comfort measures only * Questions answered to the best of my ability * Palliative care contact information provided Assessment and Plan Disease Oriented Problem List: (1) UTI (urinary tract infection) (2) Altered mental status (3) Cirrhosis (4) Hepatitis C (5) Hypothyroid (6) CHF (congestive heart failure) (7) GERD (gastroesophageal reflux disease) Symptom Scale: (1) Confusion 0-10 Scale: Unable to quantify (unsure what pt baseline is at this point. ) Pertinent Non-Medical Issues Psychosocial: Spiritual: Legal: Ethical issues impacting care: Important Contacts Patricia Beltran (daughter) [phone] or [phone]. Aleksandra Padilla (daughter) [phone] Hilda (daughter) [phone] Liban phone number unknown ( per daughter patricia, he is the health care surrogate and is also an anesthesiologist). Prognosis 86 year old with hx of cirrohsis, (hepatitis C), CHF, hypothyrodism, and reccurent UTI. Although in terms of cirrhosis- on surface does not appear to meet hospice criteria ( INR of >1.5 and Serrum Albumin of <2.5) Pt's currently INR is 1.1 and Albumin is 2.5). Pt is confused, I do not see any documentation of Dementia thus far, but Her FAST score does not appear to be 7C or beyond. However there is a convergence of multiple issues, with none dominant that makes her condition destablizing. She continue to have cardiac issue, mainly with edema for which it has been very difficult to control despite multiple diurectis, where it has been weeping. She has fallen which required ER visit. Furthermore her hallucinations and mentation has progressed since 01/22 to which she worry someone poisoned her food. Her appetite fluctuates. This confusion has been going on for 1 month. Prognosis is poor if mentation, hallucination continue this trend of decline, and goals of care is comfort only. Code Status: No Code Plan ==Capacity- pt is confused, but pleasant today. Per daughter' Hilda report, she can get extremely paranoid. Per family, her confusion has not return to baseline since 01/22/2017. On my visit, pt does not have capacity to weigh the risk and benefits of her medical decision. ==Code:-- She has a DNR, and family wish to continue to honor that. == Adavance directives: Son Liban has medical power of [employer]. We will obtain a copy. == Goals of Care: Evolving. I was honest with pt's family, that I am uncertain weather pt's paranoia, hallucination will ever ariana and go back to where it was prior to 01/22. If her level of confusion maintains, and she continues to be this confused, I suspect her condition will continue to deteriorate. Family feels on 01/22, hospice have over medicate pt, to a point where they ask hospice to hold all medicine. Pt became more alert but has been confused since. If that is the case prognosis is poor. I told them can either go back to hospice at home, with the hospice there were on previously. There are also hospices with care center. I did say that, however that pt, in the care center, they will medicate for agitation and hallucinations, especially given her fall risk. That the episode in May can happen again. I explain to them the requirements of inpatient criteria of hospice and allowance for the treatment of symptoms. If family is not amenable to that, then hospice at a care center may not be the way to go. Goals need to be comfort oriented. Lastly I suspect that either way with or without hospice, pt will need placement. Hilda ask for time to think about it. She say she needs plan to and discuss with family weather to go back on hospice or not. Hilda ask if pt can stay in the hospital for the time being. == Confusion/ hallucination/ paranoia- likely multifactorial, new envorment, general decline (was dehydrated). Will defer to psych. ==Palliative Care will continue to follow. Thank you for the opportunity to participate in the care of Ms. Mayers. Attestation To help prompt me to consider important information that might be impacting today's encounter and assessment, information from prior notes written by myself or my colleagues may have been "brought forward" into today's note. My signature on this note, however, is an attestation that I personally performed the exam, history, and/or decision-making noted today, and, unless otherwise indicated, the interactions with patient, family, and staff as well as the review of records all occurred today. I also attest that the listed assessment and stated plan reflect my best clinical judgment today based on the combination of historical information, prior notes, and today's exam/ interactions. When time spent is documented, it refers only to time spent today by the signer, or if indicated, combined time spent today by collaborating physician/nurse practitioner. Glenn Castro MD Mar 05, 2017 12:27
[2017-03-05] MEDS: POTASSIUM CHLORIDE 20 MEQ CONTROLLED RELEASE TAB PO SCH ×2 (14:23→17:08)
[2017-03-05] MEDS ORDERED: PILL SPLITTER OTHER PRN (14:45)
[2017-03-05] MEDS ORDERED: ARIPiprazole 2 MG TAB PO PRN (15:00)
--- NOTE | 2017-03-05 15:35 | PD.CONS ---
Provisional Diagnosis Admission Date Mar 04, 2017 at 04:05 [place]. Delirium History of Present Illness Service Psychiatry Consult Requested By Dr. Redmond Primary Care Physician No Primary Care Physician HPI This is an 86-year-old female who is experiencing a urinary tract infection, being treated for it with antibiotics, and exhibiting psychotic delusional behavior. Patient feels she is being poisoned by hospital staff and by caretakers and by family members. Patient is obviously confused and is disoriented to time, place and situation. She is only oriented to person. According to some family members, the patient was not herself even before the diagnosis of a urinary tract infection. However, this physician feels even a insidious urinary tract infection could cause altered mental status and paranoia. Additionally, the patient has some likelihood for experiencing an underlying dementia process, even though it may only be mild. As a result, she might be more susceptible to infections and develops this delirium process. In any event, when paranoid she refuses treatment and she is oppositional and uncooperative. Review of Systems Except as stated in HPI: all other systems reviewed are Neg Past Family Social History Coded Allergies: Augmentin (Verified Allergy, Severe, 03/04/17) Beta Blockers (Verified Allergy, Severe, 03/04/17) Flagyl (Verified Allergy, Severe, 03/04/17) Levaquin (Verified Allergy, Severe, 03/04/17) Morphine (Verified Allergy, Severe, 03/04/17) Seafood (Verified Allergy, Severe, 03/04/17) Lasix (Verified Allergy, Intermediate, 03/04/17) Amoxicillin (Verified Allergy, Unknown, 03/04/17) Spironolactone (Verified Allergy, Unknown, 03/04/17) Reported Medications Simethicone 125 Mg [id number] Mg CHEW QID PRN (GAS RETENTION) Ref 0 03/04/17 Cyclobenzaprine (Flexeril)5 Mg Tab5 Mg PO TID #90 TAB Ref 0 03/04/17 Mupirocin Topical (Bactroban Topical)22 Gm Cream1 Applic TOPICAL BID #1 TUBE Ref 0 03/04/17 Potassium Chloride Liq 20 Meq/15 Ml Soln20 Meq PO TID Ref 0 03/04/17 Hyoscyamine Odt (Levsin-SL)0.125 Mg Subl0.125 Mg SL Q4H Ref 0 03/04/17 Lidocaine (Lidoderm)5 % Adh..patch 03/04/17 Torsemide (Demadex)10 Mg Tab10 Mg PO DAILY #30 TAB Ref 0 03/04/17 Sennosides (Senna-Tabs)8.6 Mg Tab8.6 Mg PO BID #30 TAB Ref 0 03/04/17 Polyethylene Glycol 3350 Powder (Miralax Powder)17 Gm Powd17 Gm PO DAILY #1 CAN Ref 0 Mix and dissolve one measuring cap-ful (17 grams) in water or juice. 03/04/17 [Haloperidol Gel] No Conflict Check1 Ml TOPICAL Q4HR 03/04/17 [Lorazepam Gel] No Conflict Check1 Ml TOPICAL Q4HR 03/04/17 Diclofenac Sodium (Voltaren)100 Gm Gel..gram. 03/04/17 Metolazone 5 Mg Tab5 Mg PO MONWEDFRI #30 TAB Ref 0 03/04/17 Prednisone 10 Mg Tab10 Mg PO DAILY Ref 0 03/04/17 Diphenhydramine HCl (Benadryl Allergy)25 Mg Cap 03/04/17 Isosorbide Mononitrate 10 Mg Tab10 Mg PO DAILY #60 TAB Take 2 doses 7 hours apart. 03/04/17 Lorazepam (Ativan)0.5 Mg Tab0.5 Mg PO Q4H PRN (For mild anxiety / dyspnea) Ref 0 03/04/17 Pantoprazole (Protonix)40 Mg Tab40 Mg PO DAILY #30 TAB Ref 0 03/04/17 Ondansetron (Zofran)4 Mg Tab4 Mg PO Q6HR PRN (NAUSEA OR VOMITING) Ref 0 03/04/17 Tramadol (Ultram)50 Mg Tab25 Mg PO Q6H PRN (PAIN) Ref 0 03/04/17 Nitroglycerin SL (Nitrostat SL)0.4 Mg Subl0.4 Mg SL DIRECTED PRN (CHEST PAIN ) #100 TAB.SL Ref 0 1 tablet under the tongue as needed for chest pain. Repeat every 5 minutes for a total of 3 DOSES or call 911 if NO relief. 03/04/17 Levothyroxine 100 Mcg Msc854 Mcg PO DAILY #30 TAB Ref 0 03/04/17 [Ketoprofen Gel] No Conflict Check5 % Topical Tid 03/04/17 Bisacodyl Supp (Dulcolax Supp)10 Mg Supp10 Mg RECTAL DAILY PRN (CONSTIPATION) # 12 SUPP Ref 0 03/04/17 Albuterol 6.7 GM Inh (Proventil Hfa 6.7 GM Inh)90 Mcg/Act Aer2 Puff INH Q4-6H PRN (SHORTNESS OF BREATH) #1 INHALER Ref 0 03/04/17 Loratadine (Claritin)10 Mg Tablet 03/04/17 Guaifenesin/Dextromethorphan Liq (Guaifenesin-Dm Liq)100-10 Mg/5 Ml Syrp 03/04/17 Lidocaine Topical 2 % Jel1 Applic TOPICAL QID Ref 0 03/04/17 Ketoconazole Topical 2% Cream1 Applic TOPICAL DAILY #15 GM Ref 0 03/04/17 Current Medications Medications (Trade) Dose Ordered Sig/Anupama Route Start Time Stop Time Status Last Admin (NS Flush) 2 ml UNSCH PRN IV FLUSH 03/04/17 04:15 (NS Flush) 2 ml BID IV FLUSH 03/04/17 09:00 03/05/17 08:52 Naloxone HCl 0.4 mg 0.4 mg UNSCH PRN IV 03/04/17 04:15 (Rocephin Inj/NS Inj) 100 ml @ 200 mls/hr Q12H IV 03/04/17 16:00 03/05/17 14:27 (Synthroid) 100 mcg DAILY@06 PO 03/05/17 06:00 03/05/17 05:38 Lorazepam 0.5 mg 0.5 mg Q6H PRN PO 03/04/17 09:45 (NS + KCl 20 Meq Inj) 1,000 ml @ 84 mls/hr [id number] IV 03/04/17 17:00 03/05/17 05:37 (Vitamin D3) 5,000 units DAILY PO 03/05/17 09:00 03/05/17 08:51 (KCl) 40 meq Q2H PO 03/05/17 14:00 03/05/17 16:01 03/05/17 14:23 (Abilify) 1 mg DAILY PRN PO 03/05/17 15:00 (Pill Splitter) 1 ea UNSCH PRN OTHER 03/05/17 14:45 Family History Denied for mental illness. Social History Denied for alcoholism and substance abuse. Patient is not . She does have supportive family members, however. Patient's Strengths (min. 2) Verbal and has access to healthcare. Physical Exam Vital Signs Vital Signs Date Time Temp Pulse Resp B/P Pulse Ox O2 Delivery O2 Flow Rate FiO2 03/05/17 12:30 77 03/05/17 11:29 98.5 20 144/74 93 03/04/17 03:22 Room Air Mental Status Examination Speech: Incoherent Orientation: Person Memory: Impaired (describe) Thought Process: Goal Directed, Other Thought Content: Paranoid Hallucination Type: None Attention and Concentration: Easily Distracted Suicidal Ideation: No Previous Suicide Attempts: No Homicidal Ideation: No Previous Homicide Attempts: No Insight: Poor Judgment: WNL, Poor Affect: Anxious Affect if Inappropriate: Labile Mood: Anxious Motor Activity: Normal gait Assessment & Plan Problem List: (1) Delirium due to another medical condition ICD Code: F05 Assessment & Plan Estimated LOS: days 86-year-old female with altered mental status and paranoid delusions, also positive for urinary tract infection. Has underlying medical disorders. Patient obviously confused and disoriented. Uncooperative with staff and treatment. To most likely diagnoses would be delirium and possible underlying dementia. In either event, this physician is recommending and prescribing Abilify 1 mg daily to assist with paranoia and mood stability. This would need to be consented for by a family member as the patient is not felt to be competent at this time to make medical decisions. Danny Hoover MD Mar 05, 2017 15:35
[2017-03-06] VITALS: BP 128/70; PULSE 87; RESP 20; TEMP 98.7; O2SAT 97
[2017-03-06 04:00] VITALS: BP 134/60; PULSE 88; RESP 19; TEMP 97.7; O2SAT 96
[2017-03-06] MEDS: LEVOTHYROXINE SODIUM 100 MCG TAB PO SCH (04:48)
[2017-03-06] MEDS: NS + KCL 20 MEQ INJ 1,000 ML IV SCH ×2 (04:48→16:40)
[2017-03-06] MEDS: cefTRIAXone INJ 1,000 MG in SODIUM CHLORIDE 0.9% INJ 100 ML IV SCH (04:48)
[2017-03-06 07:32] VITALS: BP 113/56; PULSE 86; RESP 20; TEMP 97.8; O2SAT 97
[2017-03-06] MEDS: SODIUM CHLORIDE 0.9% FLUSH 10 ML FLUSH IV FLUSH SCH ×2 (08:42→20:12)
[2017-03-06] MEDS: CHOLECALCIFEROL (VIT D3) 5000 UNIT CAP PO SCH (09:00)
[2017-03-06] MEDS ORDERED: CYCLOBENZAPRINE HCL 10 MG TAB PO PRN (10:15)
--- NOTE | 2017-03-06 10:24 | HHI.PR ---
Subjective Remarks Follow-up for encephalopathy. Discussed with RN, patient is still intermittently paranoid and agitated, although is more clear today. The patient remains oriented to person, place, time, president, however continues to demonstrate poor insight. She does not know what medications she is on or what she is on medications for. She does not know who her primary care physician is. She is asking to go home and states that she has 24-hour care there. She is agreeable to rehabilitation placement whenever asked. When asked if she is eating, she states "no, for obvious reasons...". When asked what the obvious reasons are, she states because she had been poisoned. She does have chronic back pain, and states she takes steroids for that. Objective Vitals Vital Signs Date Time Temp Pulse Resp B/P Pulse Ox O2 Delivery O2 Flow Rate FiO2 03/06/17 07:32 97.8 86 20 113/56 97 03/06/17 04:00 97.7 88 19 134/60 96 03/06/17 00:00 98.7 87 20 128/70 97 03/05/17 22:07 91 03/05/17 20:36 98.0 86 18 106/56 97 03/05/17 12:30 77 03/05/17 11:29 98.5 95 20 144/74 93 I/O 03/05/17 03/05/17 03/05/17 03/06/17 03/06/17 03/06/17 07:00 15:00 23:00 07:00 15:00 23:00 Intake Total 400 ml Balance 400 ml Intake IV Total 400 ml Result Diagram: 03/05/17 0844 03/05/17 0844 Imaging Last Impressions Lower Extremity Ultrasound 03/04/17 0000 Signed Impressions: Service Date/Time: Saturday, March 04, 2017 09:26 - CONCLUSION: No evidence of deep venous thrombosis within the lower extremities. Gunnar Ingram MD Head CT 03/04/17 0000 Signed Impressions: Service Date/Time: Saturday, March 04, 2017 03:04 - CONCLUSION: Unremarkable study. Chuckie Miranda MD Objective Remarks GENERAL: Well-developed well-nourished. In no acute distress. SKIN: Warm and dry. Venous stasis changes bilateral lower extremities HEENT: Normocephalic. Pupils equal and round. Mucous membranes pink and moist. CARDIOVASCULAR: Regular rate and rhythm. Systolic murmur appreciated. RESPIRATORY: No accessory muscle use. Clear to auscultation. Breath sounds equal bilaterally. GASTROINTESTINAL: Abdomen soft, non-tender, nondistended. Bowel sounds x4. MUSCULOSKELETAL: Lower extremity skin color changes bilaterally with trace edema , no warmth or weeping. No clubbing or cyanosis. NEUROLOGICAL: Awake and alert. Moves upper and lower extremities spontaneously. Normal speech. PSYCHIATRIC: Mostly pleasantly confused but occasional paranoid mood and affect ; insight and judgment limited. A/P Problem List: (1) Altered mental status ICD Code: R41.82 Status: Acute (2) UTI (urinary tract infection) ICD Code: N39.0 Status: Acute Assessment and Plan 86-year-old female with history of anxiety, hypertension, hypothyroidism, presents here via EMS for confusion. Metabolic Encephalopathy: Suspect secondary to UTI and underlying dementia. Head CT reviewed, unremarkable. On antibiotics for UTI. Monitor neuro checks. Consulted PT, recommends [facility] but needs supervision for safety. Patient reportedly recently on hospice however wants to revoke hospice, now patient refusing food/medications secondary to paranoia. Psychiatry and palliative care consulted. Case management consulted for assistance with sleep discharge. Paranoia/Delirium: possibly exacerbated UTI, however per family report, this has been going on for a while. Patient refusing medications and food, although this is improving. Consulted psychiatry, recommended Abilify daily when necessary. UTI: UA with evidence of UTI. Urine culture with Escherichia coli sensitive to Macrobid. Received IV Rocephin 5 doses. Afebrile with no leukocytosis. Start on Macrobid. NIRAV: secondary to dehydration. Also possibly secondary to patient overusing diuretic antihypertensive medications. Cr 1.32. Given IVF, creatinine improved to 0.95. Continue to monitor. Hypokalemia: K 3.2. Suspect secondary to dehydration and poor oral intake. Diffuse SD replacement, continue IV NS with KCl. Monitor serum potassium levels. Labs pending today. Elevated Troponin: patient initially denied any chest pain or angina equivalent. Troponin 0.08, 0.11, 0.12. Suspect secondary to kidney disease. Patient did report episode of chest pain overnight, resolved on its own. Will repeat troponin/EKG. Bilateral Lower Extremity Edema: Exam appears consistent with chronic venous stasis changes, Doppler U/S negative for DVT. Elevation. Rigo hose. Hypertension: chronic, BP currently well controlled off of medications. Resume Imdur. Hold diuretics with NIRAV as above. Monitor BP, adjust antihypertensives as needed. Hypothyroidism: Continue patient's levothyroxine. TSH elevated, T3 low. Suspect noncompliance with medications therefore will hold off on increasing synthroid at this time. Outpatient f/up with PCP. Anxiety: chronic, continue ativan prn. Chronic back pain: Resume home Lidoderm, Flexeril, prednisone. Caution with medications that could worsen delirium. Vitamin D deficiency: Started on vitamin D replacement. DVT Prophylaxis: teds/SCDs Discharge Planning The patient is medically clear for discharge pending safe discharge arrangements , D/W patient's daughter. Teto Wang Mar 06, 2017 10:24
[2017-03-06] MEDS ORDERED: ABIL2TAB2 PO (10:37)
[2017-03-06] MEDS ORDERED: CYCL5TAB PO (10:37)
[2017-03-06] MEDS ORDERED: PRED5TAB PO (10:37)
[2017-03-06] MEDS ORDERED: CHOL5000 PO (10:37)
[2017-03-06] MEDS ORDERED: NITR100C4 PO (10:37)
[2017-03-06 11:46] VITALS: BP 123/57; PULSE 88; RESP 20; TEMP 97.8; O2SAT 97
[2017-03-06 12:06] LABS: BICARBONATE 21.7 MEQ/L (21.0-32.0); POTASSIUM 5.2 MEQ/L (3.5-5.1)
[2017-03-06] MEDS: predniSONE 5 MG TAB PO SCH (12:10)
[2017-03-06] MEDS: LIDOCAINE HCL 5% PATCH T-DERMAL SCH (12:11)
--- NOTE | 2017-03-06 12:32 | HHI.HCPN ---
Received call from daughter, Hilda. Requested copies of advanced directives. She reports all the family is working, they are trying to get them together, and will fax them over later today. Palliative number provided. Hilda is somewhat distraught verbalizes her sister just got a call indicating her mother was being discharged. Offered emotional support. Hilda inquires about Mrs. Mayers' s medical condition, states family feels they do not have a good understanding of options, etc. Gently reviewed palliative MD discussion with them per progress note yesterday. She confirms conversation and information provided. Concerned of past overmedication with their hospice. Requests medical update/ further clarification. Palliative MD aware. Encouraged Hilda to speak with case management regarding discharge options. Palliative care number provided. Family appreciative. Palliative care will continue to follow throughout hospitalization. Salena Menon, DEALER SALES MANAGER Mar 06, 2017 12:32
--- NOTE | 2017-03-06 13:54 | HHI.DS ---
Discharge Summary Admission Date Mar 04, 2017 at 04:05 Discharge Date: Mar 06, 2017 Admitting Diagnosis UTI, delirium (1) Altered mental status ICD Code: R41.82 (2) UTI (urinary tract infection) ICD Code: N39.0 Diagnosis: Principal Procedures none Brief History - From Admission 86-year-old female with history of anxiety, hypertension, hypothyroidism, presents here via EMS for confusion. The patient is currently awake, alert, oriented to person, [place]y, [place], year 2016, president Odell, but not month/date. She is an extremely poor historian, unable to provide her medical history, and she is fixed on discussing that she is being held captive here and just wants to go home with her family. She states her family has been trying to get her out of hospice for two weeks now. The patient states she wants to go home today "no matter what". She says she will be going home with her daughter Edyta. Per ER MD note, Caregiver reported she's been more confused for the past several weeks; She was given antibiotics for UTI but hasn't been taking it; She reportedly flushed all her medications down the toilet. Caregiver reports that she also took 14 triamterene/HCTZ pills over the past day or so. Attempted discussing any symptoms the patient may have, and she immediately starts discussing her discharge, states "why won't you just let me go home?" She did eventually deny any fever/chills, abdominal pain, dysuria, increased urinary frequency/urgency. She states she has been eating well. She denies any medical complaints, although she does show me her legs which appear to be swollen, and states "does this look like hospice to you?" Otherwise no acute events overnight. The patient states her family will be coming today to get her. CBC/BMP: 03/05/17 0844 03/06/17 1102 Significant Findings Laboratory Tests Test 03/04/17 03/04/17 03/04/17 03/05/17 02:15 11:34 15:34 08:44 Prothrombin Time 12.3 SEC (9.8-11.6) Sodium Level 134 MEQ/L (136-145) Potassium Level 3.0 MEQ/L 3.0 MEQ/L 3.2 MEQ/L (3.5-5.1) (3.5-5.1) (3.5-5.1) Chloride Level 94 MEQ/L (98-107) Creatinine 1.32 MG/DL 1.13 MG/DL (0.50-1.00) (0.50-1.00) Estimat Glomerular Filtration 38 ML/MIN (>89) 45 ML/MIN (>89) 56 ML/MIN (>89) Rate Lactic Acid Level 2.4 mmol/L (0.4-2.0) Calcium Level 8.4 MG/DL 8.1 MG/DL 7.9 MG/DL (8.5-10.1) (8.5-10.1) (8.5-10.1) Total Bilirubin 3.3 MG/DL (0.2-1.0) Aspartate Amino Transf 50 U/L (15-37) (AST/SGOT) Troponin I 0.08 NG/ML 0.11 NG/ML 0.12 NG/ML 0.11 NG/ML (0.02-0.05) (0.02-0.05) (0.02-0.05) (0.02-0.05) Total Protein 6.2 GM/DL (6.4-8.2) Albumin 2.5 GM/DL (3.4-5.0) Thyroid Stimulating Hormone 7.640 uIU/ML 3rd Gen (0.358-3.740) Red Cell Distribution Width 20.0 % 20.1 % (11.6-17.2) (11.6-17.2) Platelet Count 94 TH/MM3 91 TH/MM3 (150-450) (150-450) Neutrophils (%) (Auto) 76.1 % 74.1 % (16.0-70.0) (16.0-70.0) Platelet Estimate LOW (NORMAL) LOW (NORMAL) Ovalocytes 1+ (NORMAL) Urine Turbidity HAZY (CLEAR) Urine Nitrite POS (NEG) Urine Urobilinogen 8.0 MG/DL (LESS THAN 2.0) Urine Leukocyte Esterase SMALL (NEG) Urine WBC 17 /hpf (0-5) Urine Bacteria MOD /hpf (NONE) Urine Mucus FEW /lpf (OCC) 25-Hydroxy Vitamin D Total 7.0 ng/ML (30-100) Free Triiodothyronine (T3) 1.61 PG/ML pg/dL (2.18-3.98) Lymphocytes # (Auto) 0.8 TH/MM3 (1.0-4.8) Random Glucose 65 MG/DL (74-106) Test 03/06/17 11:02 Potassium Level 5.2 MEQ/L (3.5-5.1) Chloride Level 108 MEQ/L (98-107) Creatinine 1.01 MG/DL (0.50-1.00) Estimat Glomerular Filtration 52 ML/MIN (>89) Rate Random Glucose 70 MG/DL (74-106) Imaging Last Impressions Lower Extremity Ultrasound 03/04/17 0000 Signed Impressions: Service Date/Time: Saturday, March 04, 2017 09:26 - CONCLUSION: No evidence of deep venous thrombosis within the lower extremities. Gunnar Ingram MD Head CT 03/04/17 0000 Signed Impressions: Service Date/Time: Saturday, March 04, 2017 03:04 - CONCLUSION: Unremarkable study. Chuckie Miranda MD PE at Discharge GENERAL: Well-developed well-nourished. In no acute distress. SKIN: Warm and dry. Venous stasis changes bilateral lower extremities HEENT: Normocephalic. Pupils equal and round. Mucous membranes pink and moist. CARDIOVASCULAR: Regular rate and rhythm. Systolic murmur appreciated. RESPIRATORY: No accessory muscle use. Clear to auscultation. Breath sounds equal bilaterally. GASTROINTESTINAL: Abdomen soft, non-tender, nondistended. Bowel sounds x4. MUSCULOSKELETAL: Lower extremity skin color changes bilaterally with trace edema , no warmth or weeping. No clubbing or cyanosis. NEUROLOGICAL: Awake and alert. Moves upper and lower extremities spontaneously. Normal speech. PSYCHIATRIC: Mostly pleasantly confused but occasional paranoid mood and affect ; insight and judgment limited. Pt update on day of discharge Eating lunch. Says she feels good and she wants to go home. Says that her daughter Anna has diabetes and she might not come to see her. Patient is pleasantly confused. She denies any pain. No n/v/d/c. Hospital Course 86-year-old female with history of anxiety, hypertension, hypothyroidism, presents here via EMS for confusion. Metabolic Encephalopathy: Suspect secondary to UTI and underlying dementia. Head CT reviewed, unremarkable. On antibiotics for UTI. Monitor neuro checks. Consulted PT, recommends [facility] but needs supervision for safety. Patient reportedly recently on hospice however wants to revoke hospice, now patient refusing food/medications secondary to paranoia. Psychiatry and palliative care consulted. Case management consulted for assistance with sleep discharge. Paranoia/Delirium: possibly exacerbated UTI, however per family report, this has been going on for a while. Patient refusing medications and food, although this is improving. Consulted psychiatry, recommended Abilify daily when necessary. UTI: UA with evidence of UTI. Urine culture with Escherichia coli sensitive to Macrobid. Received IV Rocephin 5 doses. Afebrile with no leukocytosis. Start on Macrobid. NIRAV: secondary to dehydration. Also possibly secondary to patient overusing diuretic antihypertensive medications. Cr 1.32. Given IVF, creatinine improved to 0.95. Continue to monitor. Hypokalemia: K 3.2. Suspect secondary to dehydration and poor oral intake. Diffuse SC replacement, continue IV NS with KCl. Monitor serum potassium levels. Labs pending today. Elevated Troponin: patient initially denied any chest pain or angina equivalent. Troponin 0.08, 0.11, 0.12. Suspect secondary to kidney disease. Patient did report episode of chest pain overnight, resolved on its own. Will repeat troponin/EKG. Bilateral Lower Extremity Edema: Exam appears consistent with chronic venous stasis changes, Doppler U/S negative for DVT. Elevation. Rigo hose. Hypertension: chronic, BP currently well controlled off of medications. Resume Imdur. Hold diuretics with NIRAV as above. Monitor BP, adjust antihypertensives as needed. Hypothyroidism: Continue patient's levothyroxine. TSH elevated, T3 low. Suspect noncompliance with medications therefore will hold off on increasing Synthroid at this time. Outpatient f/up with PCP. Anxiety: chronic, continue ativan prn. Chronic back pain: Resume home Lidoderm, Flexeril, prednisone. Caution with medications that could worsen delirium. Vitamin D deficiency: Started on vitamin D replacement. DVT Prophylaxis: TEDs/SCD The patient is medically clear for discharge pending safe discharge arrangements. Pt Condition on Discharge: Stable Discharge Disposition: Discharge to SNF Discharge Time: > 30 minutes Discharge Instructions DIET: Follow Instructions for: Heart Healthy Diet Activities you can perform: Regular-No Restrictions Follow up Referrals: PCP Follow-up - 2-3 Days New Medications: Aripiprazole (Abilify) 2 Mg Tab 1 MG PO DAILY PRN paranoia #15 TAB Cholecalciferol (Vitamin D3) 5,000 Unit Cap 5000 UNITS PO DAILY Nutritional Supplement #30 CAP Nitrofurantoin Monohydrate Macrocrystals (Nitrofurantoin Monohydrate Macrocrystals) 100 Mg Cap 100 MG PO BIDPC UTI #10 CAP Prednisone (Prednisone) 5 Mg Tab 5 MG PO DAILY Inflammation #30 TAB Changed Medications: Cyclobenzaprine (Flexeril) 5 Mg Tab 5 MG PO TID PRN Muscle Spasm #90 Ref 0 TAB (Medication details modified) Continued Medications: Albuterol 6.7 GM Inh (Proventil Hfa 6.7 GM Inh) 90 Mcg/Act Aer 2 PUFF INH Q4-6H PRN SHORTNESS OF BREATH #1 Ref 0 INHALER Bisacodyl Supp (Dulcolax Supp) 10 Mg Supp 10 MG RECTAL DAILY PRN CONSTIPATION #12 Ref 0 SUPP Isosorbide Mononitrate (Isosorbide Mononitrate) 10 Mg Tab 10 MG PO DAILY Take 2 doses 7 hours apart. Prevent Chest Pain #60 TAB Levothyroxine (Levothyroxine) 100 Mcg Tab 100 MCG PO DAILY Thyroid #30 Ref 0 TAB Lidocaine (Lidoderm) 5 % Adh..patch Lidocaine Topical (Lidocaine Topical) 2 % Jel 1 APPLIC TOPICAL QID Pain Management Ref 0 GM Lorazepam (Ativan) 0.5 Mg Tab 0.5 MG PO Q4H PRN For mild anxiety / dyspnea Ref 0 TAB Mupirocin Topical (Bactroban Topical) 22 Gm Cream 1 APPLIC TOPICAL BID Mgmt Bacterial Infection #1 Ref 0 TUBE Nitroglycerin SL (Nitrostat SL) 0.4 Mg Subl 0.4 MG SL DIRECTED 1 tablet under the tongue as needed for chest pain. Repeat every 5 minutes for a total of 3 DOSES or call 911 if NO relief. PRN CHEST PAIN #100 Ref 0 TAB.SL Potassium Chloride Liq (Potassium Chloride Liq) 20 Meq/15 Ml Soln 20 MEQ PO TID Electrolyte Replacement Ref 0 ML Simethicone (Simethicone) 125 Mg Chw 125 MG CHEW QID PRN GAS RETENTION Ref 0 TAB ([Haloperidol Gel]) 1 ML TOPICAL Q4HR ([Ketoprofen Gel]) 5 % TOPICAL TID ([Lorazepam Gel]) 1 ML TOPICAL Q4HR Discontinued Medications: Diclofenac Sodium (Voltaren) 100 Gm Gel..gram. Diphenhydramine HCl (Benadryl Allergy) 25 Mg Cap Itching Guaifenesin/Dextromethorphan Liq (Guaifenesin-Dm Liq) 100-10 Mg/5 Ml Syrp Hyoscyamine Odt (Levsin-SL) 0.125 Mg Subl 0.125 MG SL Q4H Gastrointestinal disorders Ref 0 TAB.SL Ketoconazole Topical (Ketoconazole Topical) 2% Cream 1 APPLIC TOPICAL DAILY Fungal Infection #15 Ref 0 GM Loratadine (Claritin) 10 Mg Tablet Metolazone (Metolazone) 5 Mg Tab 5 MG PO MONWEDFRI PRIOR TO TORSEMIDE #30 Ref 0 TAB Ondansetron (Zofran) 4 Mg Tab 4 MG PO Q6HR PRN NAUSEA OR VOMITING Ref 0 TAB Pantoprazole (Protonix) 40 Mg Tab 40 MG PO DAILY Reflux #30 Ref 0 TAB Polyethylene Glycol 3350 Powder (Miralax Powder) 17 Gm Powd 17 GM PO DAILY Mix and dissolve one measuring cap-ful (17 grams) in water or juice. Constipation #1 Ref 0 CAN Prednisone (Prednisone) 10 Mg Tab 10 MG PO DAILY Ref 0 TAB Sennosides (Senna-Tabs) 8.6 Mg Tab 8.6 MG PO BID Constipation #30 Ref 0 TAB Torsemide (Demadex) 10 Mg Tab 10 MG PO DAILY #30 Ref 0 TAB Tramadol (Ultram) 50 Mg Tab 25 MG PO Q6H PRN PAIN Ref 0 TAB Audrey Bowser MD Mar 06, 2017 13:54
--- NOTE | 2017-03-06 14:26 | HHI.HCPN ---
Reason for visit a. To assist with evaluation and management of symptoms including: confusion b. To assist medical decision maker(s) with: better understanding of current medical conditions; weighing benefits/burdens of medical treatment options; making medical treatment decisions. Subjective/Interval History Pt is alert, responsive. She remains anxious, and continue have poor insight. She feels the phones a tap and conversations are observed. Family/friend interactions Spoke with daughter Hilda. Family still weighing the risk and benefits. At this time Hilda feels overall, not ready to go to a care center. Again family feels pt was overmedicated in January 2017 and since then pt has not been the same. Family understands if pt does go to a care center, likely pt will be medicated to control delerium, as pt on hospice are not on restraints. Pt wary of overmedication and hospice at this point in time. They endorse to keep pt in the hospital until, a place for placement could be found. I encourage her to continue to speak with case management. Objective Vital Signs Date Time Temp Pulse Resp B/P Pulse Ox O2 Delivery O2 Flow Rate FiO2 03/06/17 11:46 97.8 88 20 123/57 97 03/06/17 07:32 97.8 86 20 113/56 97 03/06/17 04:00 97.7 88 19 134/60 96 03/06/17 00:00 98.7 87 20 128/70 97 03/05/17 22:07 91 03/05/17 20:36 98.0 86 18 106/56 97 Physical Exam CONSTITUTIONAL/GENERAL: This is an adequately nourished patient, not failure to thrive. Elderly women, confused SKIN: No jaundice, rashes, or lesions. Ecchymoses on upper extremities. No wounds seen anteriorly. Skin temperature appropriate. Not diaphoretic. HEAD: Atraumatic. Normocephalic. EYES: Pupils equal and round and reactive. Extraocular motions intact. No scleral icterus. No injection or drainage. Fundi not examined. ENT: Hearing grossly normal. Nose without bleeding or purulent drainage. Throat without visible erythema, exudates, masses, or lesions. NECK: Trachea midline. Supple, nontender. No palpable thyroid enlargement or nodularity. CARDIOVASCULAR: Regular rate and rhythm without murmurs, gallops, or rubs. No JVD. Peripheral pulses symmetric. RESPIRATORY/CHEST: Symmetric, unlabored respirations. Clear to auscultation. Breath sounds equal bilaterally. No wheezes, rales, or rhonchi. GASTROINTESTINAL: Abdomen soft, non-tender, nondistended. No hepato-splenomegaly , or palpable masses. No guarding. Bowel sounds present. GENITOURINARY: Without palpable bladder distension. Nair catheter in place. MUSCULOSKELETAL: edemetous, red lower ext.. LYMPHATICS: No palpable cervical or supraclavicular adenopathy. NEUROLOGICAL: Awake and alert. Motor and sensory grossly within normal limits. Follow some commands. Cognitively sharp. PSYCHIATRIC: Confused. No anxious on my visit.. Diagnostic Tests Laboratory Laboratory Tests Test 03/04/17 03/04/17 03/04/17 03/04/17 02:15 05:10 11:34 15:34 Prothrombin Time 12.3 SEC (9.8-11.6) Prothromb Time International 1.1 RATIO Ratio Activated Partial 27.4 SEC Thromboplast Time (24.3-30.1) Sodium Level 134 MEQ/L 137 MEQ/L (136-145) (136-145) Potassium Level 3.0 MEQ/L 3.0 MEQ/L (3.5-5.1) (3.5-5.1) Chloride Level 94 MEQ/L 102 MEQ/L (98-107) (98-107) Carbon Dioxide Level 29.3 MEQ/L 27.0 MEQ/L (21.0-32.0) (21.0-32.0) Anion Gap 11 MEQ/L (5-15) 8 MEQ/L (5-15) Blood Urea Nitrogen 17 MG/DL (7-18) 16 MG/DL (7-18) Creatinine 1.32 MG/DL 1.13 MG/DL (0.50-1.00) (0.50-1.00) Estimat Glomerular Filtration 38 ML/MIN (>89) 45 ML/MIN (>89) Rate Random Glucose 96 MG/DL 78 MG/DL (74-106) (74-106) Lactic Acid Level 2.4 mmol/L 1.9 mmol/L (0.4-2.0) (0.4-2.0) Calcium Level 8.4 MG/DL 8.1 MG/DL (8.5-10.1) (8.5-10.1) Total Bilirubin 3.3 MG/DL (0.2-1.0) Aspartate Amino Transf 50 U/L (15-37) (AST/SGOT) Alanine Aminotransferase 23 U/L (10-53) (ALT/SGPT) Alkaline Phosphatase 109 U/L (45-117) Troponin I 0.08 NG/ML 0.11 NG/ML 0.12 NG/ML (0.02-0.05) (0.02-0.05) (0.02-0.05) Total Protein 6.2 GM/DL (6.4-8.2) Albumin 2.5 GM/DL (3.4-5.0) Thyroid Stimulating Hormone 7.640 uIU/ML 3rd Gen (0.358-3.740) White Blood Count 6.0 TH/MM3 (4.0-11.0) Red Blood Count 4.62 MIL/MM3 (4.00-5.30) Hemoglobin 13.0 GM/DL (11.6-15.3) Hematocrit 39.7 % (35.0-46.0) Mean Corpuscular Volume 85.9 FL (80.0-100.0) Mean Corpuscular Hemoglobin 28.1 PG (27.0-34.0) Mean Corpuscular Hemoglobin 32.7 % Concent (32.0-36.0) Red Cell Distribution Width 20.0 % (11.6-17.2) Platelet Count 94 TH/MM3 (150-450) Mean Platelet Volume 8.8 FL (7.0-11.0) Neutrophils (%) (Auto) 76.1 % (16.0-70.0) Lymphocytes (%) (Auto) 17.5 % (9.0-44.0) Monocytes (%) (Auto) 5.5 % (0.0-8.0) Eosinophils (%) (Auto) 0.4 % (0.0-4.0) Basophils (%) (Auto) 0.5 % (0.0-2.0) Neutrophils # (Auto) 4.6 TH/MM3 (1.8-7.7) Lymphocytes # (Auto) 1.1 TH/MM3 (1.0-4.8) Monocytes # (Auto) 0.3 TH/MM3 (0-0.9) Eosinophils # (Auto) 0.0 TH/MM3 (0-0.4) Basophils # (Auto) 0.0 TH/MM3 (0-0.2) CBC Comment AUTO DIFF Differential Comment AUTO DIFF CONFIRMED Platelet Estimate LOW (NORMAL) Platelet Morphology Comment NORMAL (NORMAL) Ovalocytes 1+ (NORMAL) Urine Color YELLOW (YELLW/STRAW) Urine Turbidity HAZY (CLEAR) Urine pH 7.5 (5.0-8.5) Urine Specific [place] 1.014 (1.002-1.035) Urine Protein TRACE mg/dL (NEG-TRACE) Urine Glucose (UA) NEG mg/dL (NEG) Urine Ketones NEG mg/dL (NEG) Urine Occult Blood NEG (NEG) Urine Nitrite POS (NEG) Urine Bilirubin NEG (NEG) Urine Urobilinogen 8.0 MG/DL (LESS THAN 2.0) Urine Leukocyte Esterase SMALL (NEG) Urine RBC 2 /hpf (0-3) Urine WBC 17 /hpf (0-5) Urine Squamous Epithelial <1 /hpf (0-5) Cells Urine Amorphous Sediment RARE Urine Bacteria MOD /hpf (NONE) Urine Mucus FEW /lpf (OCC) Microscopic Urinalysis Comment CATH-CULTURE IND Total Creatine Kinase 48 U/L (26-192) 44 U/L (26-192) 25-Hydroxy Vitamin D Total 7.0 ng/ML (30-100) Magnesium Level 1.8 MG/DL (1.5-2.5) Vitamin B12 Level 887 PG/ML (193-986) Free Thyroxine 1.28 NG/DL (0.76-1.46) Free Triiodothyronine (T3) 1.61 PG/ML pg/dL (2.18-3.98) Test 03/05/17 03/06/17 08:44 11:02 White Blood Count 4.4 TH/MM3 (4.0-11.0) Red Blood Count 4.19 MIL/MM3 (4.00-5.30) Hemoglobin 12.0 GM/DL (11.6-15.3) Hematocrit 35.9 % (35.0-46.0) Mean Corpuscular Volume 85.6 FL (80.0-100.0) Mean Corpuscular Hemoglobin 28.6 PG (27.0-34.0) Mean Corpuscular Hemoglobin 33.5 % Concent (32.0-36.0) Red Cell Distribution Width 20.1 % (11.6-17.2) Platelet Count 91 TH/MM3 (150-450) Mean Platelet Volume 8.8 FL (7.0-11.0) Neutrophils (%) (Auto) 74.1 % (16.0-70.0) Lymphocytes (%) (Auto) 17.7 % (9.0-44.0) Monocytes (%) (Auto) 6.2 % (0.0-8.0) Eosinophils (%) (Auto) 1.3 % (0.0-4.0) Basophils (%) (Auto) 0.7 % (0.0-2.0) Neutrophils # (Auto) 3.3 TH/MM3 (1.8-7.7) Lymphocytes # (Auto) 0.8 TH/MM3 (1.0-4.8) Monocytes # (Auto) 0.3 TH/MM3 (0-0.9) Eosinophils # (Auto) 0.1 TH/MM3 (0-0.4) Basophils # (Auto) 0.0 TH/MM3 (0-0.2) CBC Comment AUTO DIFF Differential Comment AUTO DIFF CONFIRMED Platelet Estimate LOW (NORMAL) Platelet Morphology Comment NORMAL (NORMAL) Sodium Level 137 MEQ/L 140 MEQ/L (136-145) (136-145) Potassium Level 3.2 MEQ/L 5.2 MEQ/L (3.5-5.1) (3.5-5.1) Chloride Level 102 MEQ/L 108 MEQ/L (98-107) (98-107) Carbon Dioxide Level 23.2 MEQ/L 21.7 MEQ/L (21.0-32.0) (21.0-32.0) Anion Gap 12 MEQ/L (5-15) 10 MEQ/L (5-15) Blood Urea Nitrogen 15 MG/DL (7-18) 17 MG/DL (7-18) Creatinine 0.95 MG/DL 1.01 MG/DL (0.50-1.00) (0.50-1.00) Estimat Glomerular Filtration 56 ML/MIN (>89) 52 ML/MIN (>89) Rate Random Glucose 65 MG/DL 70 MG/DL (74-106) (74-106) Calcium Level 7.9 MG/DL 8.5 MG/DL (8.5-10.1) (8.5-10.1) Total Creatine Kinase 44 U/L (26-192) Troponin I 0.11 NG/ML (0.02-0.05) Result Diagram: 03/05/17 0844 03/06/17 1102 Microbiology Microbiology Date/Time Procedure Status Source Growth 03/04/17 02:15 Urine Culture - Final Complete Urine Catheterized Urine Escherichia Coli Imaging Last Impressions Lower Extremity Ultrasound 03/04/17 0000 Signed Impressions: Service Date/Time: Thursday, March 04, 2017 09:26 - CONCLUSION: No evidence of deep venous thrombosis within the lower extremities. Gunnar Ingram MD Head CT 03/04/17 0000 Signed Impressions: Service Date/Time: Saturday, March 04, 2017 03:04 - CONCLUSION: Unremarkable study. Chuckie Miranda MD Assessment and Plan Disease Oriented Problem List: (1) UTI (urinary tract infection) (2) Altered mental status (3) Cirrhosis (4) Hepatitis C (5) Hypothyroid (6) CHF (congestive heart failure) (7) GERD (gastroesophageal reflux disease) Symptom Scale: (1) Confusion 0-10 Scale: Unable to quantify (unsure what pt baseline is at this point. ) Pertinent Non-Medical Issues Psychosocial: Spiritual: Legal: Ethical issues impacting care: Important Contacts Patricia Beltran (daughter) [phone] or [phone]. Aleksandra Padilla (daughter) [phone] Hilda (daughter) [phone] Liban phone number unknown ( per daughter patricia, he is the health care surrogate and is also an anesthesiologist). Prognosis 86 year old with hx of cirrohsis, (hepatitis C), CHF, hypothyrodism, and reccurent UTI. Although in terms of cirrhosis- on surface does not appear to meet hospice criteria ( INR of >1.5 and Serrum Albumin of <2.5) Pt's currently INR is 1.1 and Albumin is 2.5). Pt is confused, I do not see any documentation of Dementia thus far, but Her FAST score does not appear to be 7C or beyond. However there is a convergence of multiple issues, with none dominant that makes her condition destablizing. She continue to have cardiac issue, mainly with edema for which it has been very difficult to control despite multiple diurectis, where it has been weeping. She has fallen which required ER visit. Furthermore her hallucinations and mentation has progressed since 01/22 to which she worry someone poisoned her food. Her appetite fluctuates. This confusion has been going on for 1 month. Prognosis is poor if mentation, hallucination continue this trend of decline, and goals of care is comfort only. Code Status: No Code Plan ==Capacity- Poor insight, no capacity to make decisions. ==Code:-- She has a DNR, and family wish to continue to honor that. == Adavance directives: Son Liban has medical power of deputy prosecuting attorney. Awaiting copy. == Goals of Care: Spoke with daughter Hilda. Family still weighing the risk and benefits. At this time Hilda feels overall, not ready to go to a care center. Again family feels pt was overmedicated in January 2017 and since then pt has not been the same. Family understands if pt does go to a care center, likely pt will be medicated to control delerium, as pt on hospice are not on restraints. Pt's daughter Hilda wary of overmedication and hospice at this point in time. They endorse to keep pt in the hospital until, a place for placement could be found. I encourage her to continue to speak with case management == Confusion/ hallucination/ paranoia- likely multifactorial, new enviorment, general decline (was dehydrated). Will defer to psych, who have started ability. ==Palliative Care will continue to follow, but family knows we will not be available over the weekend. Time Spent Total Floor Time (mins): 20 Face to Face Time (mins): 35 Attestation To help prompt me to consider important information that might be impacting today's encounter and assessment, information from prior notes written by myself or my colleagues may have been "brought forward" into today's note. My signature on this note, however, is an attestation that I personally performed the exam, history, and/or decision-making noted today, and, unless otherwise indicated, the interactions with patient, family, and staff as well as the review of records all occurred today. I also attest that the listed assessment and stated plan reflect my best clinical judgment today based on the combination of historical information, prior notes, and today's exam/ interactions. When time spent is documented, it refers only to time spent today by the signer, or if indicated, combined time spent today by collaborating physician/nurse practitioner. Glenn Castro MD Mar 06, 2017 14:26
[2017-03-06 15:02] VITALS: BP 119/54; PULSE 91; RESP 18; TEMP 97.4; O2SAT 97
[2017-03-06] MEDS: NITROFURANTOIN MONOHYD MACROCR 100 MG CAP PO SCH (18:12)
[2017-03-06] MEDS: REMOVE OLD LIDOCAINE PATCH T-DERMAL SCH (20:13)
--- NOTE | 2017-03-06 22:40 | EKG ---
Date Performed: 03/05/2017 Time Performed: 18:30:09 PTAGE: 86 years EKG: Sinus rhythm WITH FIRST DEGREE AV BLOCK WITH OCCASIONAL SUPRAVENTRICULAR PREMATURE COMPLEXES RIGHT BUNDLE BRANCH BLOCK LEFT ANTERIOR FASCICULAR BLOCK ABNORMAL ECG PREVIOUS TRACING : 03/04/2017 00.51 DOCTOR: Tyrese Cavazos Interpretating Date/Time 03/06/2017 22:40:07
[2017-03-06] MEDS ORDERED: LORazepam 2 MG/ML VIAL IV PUSH ONE (23:45)
[2017-03-07] VITALS: BP 144/84; PULSE 86; RESP 22; TEMP 96.8; O2SAT 97
[2017-03-07 04:00] VITALS: BP 146/75; PULSE 83; RESP 22; TEMP 97; O2SAT 96
[2017-03-07] MEDS: NS + KCL 20 MEQ INJ 1,000 ML IV SCH (04:35)
[2017-03-07] MEDS: LEVOTHYROXINE SODIUM 100 MCG TAB PO SCH ×2 (06:00→06:14)
[2017-03-07] MEDS: ISOSORBIDE MONONITRATE 20 MG TAB PO SCH ×2 (06:14→06:39)
[2017-03-07 08:26] VITALS: BP 110/52; PULSE 80; RESP 22; TEMP 95.7; O2SAT 97
[2017-03-07] MEDS: LIDOCAINE HCL 5% PATCH T-DERMAL SCH (09:00)
[2017-03-07] MEDS: predniSONE 5 MG TAB PO SCH (09:00)
[2017-03-07] MEDS: CHOLECALCIFEROL (VIT D3) 5000 UNIT CAP PO SCH (09:00)
[2017-03-07] MEDS: NITROFURANTOIN MONOHYD MACROCR 100 MG CAP PO SCH ×2 (09:00→18:00)
[2017-03-07] MEDS: SODIUM CHLORIDE 0.9% FLUSH 10 ML FLUSH IV FLUSH SCH ×2 (09:00→20:59)
--- NOTE | 2017-03-07 09:55 | HHI.PR ---
Subjective Remarks Follow-up for confusion. Patient seen with RN at bedside. The patient was placed in restraints overnight, the patient is asking restraints be removed because they hurt her arms. RN reports the patient was placed in restraints because she was pulling at telemetry overnight. Patient does not voice any specific cardiac complaints. The patient continues to remain confused and suspicious. She states she will only take medicines from her family. She does not believe that I spoke with her daughter Hilda yesterday because the call was "monitored". She states that she is not able to get out of bed and walk because she is "a cripple". Objective Vitals Vital Signs Date Time Temp Pulse Resp B/P Pulse Ox O2 Delivery O2 Flow Rate FiO2 03/07/17 08:26 95.7 80 22 110/52 97 03/07/17 04:00 97.0 83 22 146/75 96 03/07/17 00:00 96.8 86 22 144/84 97 03/06/17 15:02 97.4 91 18 119/54 97 03/06/17 11:46 97.8 88 20 123/57 97 I/O 03/06/17 03/06/17 03/06/17 03/07/17 03/07/17 03/07/17 07:00 15:00 23:00 07:00 15:00 23:00 Intake Total 120 ml Output Total 350 ml Balance -230 ml Intake Oral 120 ml Output Urine Total 350 ml # Bowel Movements 0 Result Diagram: 03/05/17 0844 03/06/17 1102 Imaging Last Impressions Lower Extremity Ultrasound 03/04/17 0000 Signed Impressions: Service Date/Time: Saturday, March 04, 2017 09:26 - CONCLUSION: No evidence of deep venous thrombosis within the lower extremities. Gunnar Ingram MD Head CT 03/04/17 0000 Signed Impressions: Service Date/Time: Saturday, March 04, 2017 03:04 - CONCLUSION: Unremarkable study. Chuckie Miranda MD Objective Remarks GENERAL: Well-developed well-nourished. In no acute distress. SKIN: Warm and dry. Venous stasis changes bilateral lower extremities HEENT: Normocephalic. Pupils equal and round. Mucous membranes pink and moist. CARDIOVASCULAR: Regular rate and rhythm. Systolic murmur appreciated. RESPIRATORY: No accessory muscle use. Clear to auscultation. Breath sounds equal bilaterally. GASTROINTESTINAL: Abdomen soft, non-tender, nondistended. Bowel sounds x4. MUSCULOSKELETAL: Lower extremity skin color changes bilaterally with trace edema , no warmth or weeping. No clubbing or cyanosis. NEUROLOGICAL: Awake and alert. Moves upper and lower extremities spontaneously. Normal speech. PSYCHIATRIC: Mostly pleasantly confused but occasional paranoid mood and affect ; insight and judgment limited. Procedures none A/P Problem List: (1) Altered mental status ICD Code: R41.82 Status: Acute (2) UTI (urinary tract infection) ICD Code: N39.0 Status: Acute Assessment and Plan 86-year-old female with history of anxiety, hypertension, hypothyroidism, presents here via EMS for confusion. Metabolic Encephalopathy: Suspect secondary to UTI and underlying dementia. Head CT reviewed, unremarkable. On antibiotics for UTI. Monitor neuro checks. Consulted PT, recommends C but needs supervision for safety. Patient reportedly recently on hospice however wants to revoke hospice, now patient refusing food/medications secondary to paranoia. Psychiatry and palliative care consulted. Case management consulted for assistance with sleep discharge. Paranoia/Delirium: possibly exacerbated UTI, however per family report, this has been going on for a while. Patient intermittently refusing medications and food. Consulted psychiatry, recommended Abilify daily when necessary, but patient is currently refusing Abilify. I will ask psych for reevaluation. Trial of removing restraints. UTI: UA with evidence of UTI. Urine culture with Escherichia coli sensitive to Macrobid. Received IV Rocephin 5 doses. Afebrile with no leukocytosis. Complete 7 day course of antibiotics with Macrobid. NIRAV: secondary to dehydration. Also possibly secondary to patient overusing diuretic antihypertensive medications. Cr 1.32. Given IVF, creatinine improved to 0.95. Continue to monitor. Hypokalemia: K 3.2. Suspect secondary to dehydration and poor oral intake. Diffuse [place] replacement, continue IV NS with KCl. Monitor serum potassium levels. Labs pending today. Elevated Troponin: patient initially denied any chest pain or angina equivalent. Troponin 0.08, 0.11, 0.12, 0.11. Suspect secondary to kidney disease. No further report of chest pain. DC telemetry. Bilateral Lower Extremity Edema: Exam appears consistent with chronic venous stasis changes, Doppler U/S negative for DVT. Elevation. Rigo swenson. Hypertension: chronic, BP currently well controlled off of medications. Resumed Imdur. Hold diuretics with NIRAV as above. Monitor BP, adjust antihypertensives as needed. Hypothyroidism: Continue patient's levothyroxine. TSH elevated, T3 low. Suspect noncompliance with medications therefore will hold off on increasing synthroid at this time. Outpatient f/up with PCP. Anxiety: chronic, continue ativan prn. Chronic back pain: Resume home Lidoderm, Flexeril, prednisone. Caution with medications that could worsen delirium. Vitamin D deficiency: Started on vitamin D replacement. DVT Prophylaxis: teds/SCDs Discharge Planning The patient is medically clear for discharge pending safe discharge arrangements , will need placement/supervision for safety. Previously D/W patient's daughter , who is agreeable. Teto Wang Mar 07, 2017 09:55
[2017-03-07 10:00] VITALS: PULSE 76
[2017-03-07] MEDS: HALOPERIDOL 1 MG TAB PO SCH ×2 (14:00→21:00)
[2017-03-07] MEDS ORDERED: HALOPERIDOL LACTATE 5 MG/ML AMP IM PRN (14:00)
[2017-03-07 17:27] VITALS: BP 98/47; PULSE 81; RESP 18; TEMP 96.3; O2SAT 96
[2017-03-07] MEDS: SODIUM CHLOR 0.9% 1000 ML INJ 1,000 ML IV SCH (19:00)
[2017-03-07] MEDS: REMOVE OLD LIDOCAINE PATCH T-DERMAL SCH (21:00)
[2017-03-07 21:40] VITALS: RESP 22; TEMP 97.1
[2017-03-08 00:45] VITALS: BP 96/57; PULSE 84; RESP 23; TEMP 97.3; O2SAT 96
[2017-03-08 04:45] VITALS: BP 110/70; PULSE 84; RESP 23; TEMP 97.4; O2SAT 97
[2017-03-08] MEDS: LEVOTHYROXINE SODIUM 100 MCG TAB PO SCH (05:05)
[2017-03-08] MEDS: ISOSORBIDE MONONITRATE 20 MG TAB PO SCH (07:00)
[2017-03-08 08:00] VITALS: BP 119/75; PULSE 84; RESP 15; TEMP 96.4; O2SAT 95
[2017-03-08] MEDS: SODIUM CHLOR 0.9% 1000 ML INJ 1,000 ML IV SCH (08:20)
[2017-03-08] MEDS: NITROFURANTOIN MONOHYD MACROCR 100 MG CAP PO SCH ×2 (09:00→18:00)
[2017-03-08] MEDS: predniSONE 5 MG TAB PO SCH (09:00)
[2017-03-08] MEDS: SODIUM CHLORIDE 0.9% FLUSH 10 ML FLUSH IV FLUSH SCH ×2 (09:00→21:00)
[2017-03-08] MEDS: LIDOCAINE HCL 5% PATCH T-DERMAL SCH (09:00)
[2017-03-08] MEDS: HALOPERIDOL 1 MG TAB PO SCH ×2 (09:00→21:00)
[2017-03-08] MEDS: CHOLECALCIFEROL (VIT D3) 5000 UNIT CAP PO SCH (09:00)
[2017-03-08 09:21] LABS: AUTOMATED NEUTROPHIL # 3.1 TH/MM3 (1.8-7.7); BASOPHIL % 0.6 % (0.0-2.0); EOSINOPHIL # 0.1 TH/MM3 (0-0.4); EOSINOPHIL % 1.9 % (0.0-4.0); HEMATOCRIT 39.7 % (35.0-46.0); HEMO FLAGS DIFF FINAL; LYMPH % 23.3 % (9.0-44.0); LYMPHOCYTE # 1.1 TH/MM3 (1.0-4.8); MEAN CELL VOLUME 87.9 FL (80.0-100.0); MONO % 8.4 % (0.0-8.0); NEUT % 65.8 % (16.0-70.0); PLATELET COUNT 120 TH/MM3 (150-450); RED BLOOD COUNT 4.51 MIL/MM3 (4.00-5.30); RED CELL DISTRIBUTION WIDTH 21.7 % (11.6-17.2); WHITE BLOOD COUNT 4.7 TH/MM3 (4.0-11.0)
[2017-03-08 09:47] LABS: BICARBONATE 19.3 MEQ/L (21.0-32.0); POTASSIUM 4.6 MEQ/L (3.5-5.1)
[2017-03-08 12:00] VITALS: BP 111/54; PULSE 93; RESP 16; TEMP 96; O2SAT 95
--- NOTE | 2017-03-08 13:27 | HHI.PR ---
Subjective Remarks Follow-up for dementia with behavioral disturbance. Discussed with RN, patient' s behavior is essentially unchanged today. She is drinking a lot more water and orange juice, but not yet eating or taking medications. The patient tells me that she has been eating. She remains confused and rambling, but seems less agitated today. She is asking to go stay with her family. Discussed with psychiatry yesterday, who recommended oral Haldol and IM if patient refuses oral. Objective Vitals Vital Signs Date Time Temp Pulse Resp B/P Pulse Ox O2 Delivery O2 Flow Rate FiO2 03/08/17 12:00 96.0 93 16 111/54 95 03/08/17 08:00 96.4 84 15 119/75 95 03/08/17 04:45 97.4 84 23 110/70 97 03/08/17 00:45 97.3 84 23 96/57 96 03/07/17 21:40 97.1 22 03/07/17 17:27 96.3 81 18 98/47 96 I/O 03/07/17 03/07/17 03/07/17 03/08/17 03/08/17 03/08/17 07:00 15:00 23:00 07:00 15:00 23:00 Intake Total 120 ml 0 ml 200 ml Output Total 350 ml Balance -230 ml 0 ml 200 ml Intake Oral 120 ml 0 ml 200 ml Output Urine Total 350 ml # Voids 0 1 # Bowel Movements 0 0 0 Result Diagram: 03/08/17 0850 03/08/17 0850 Imaging Last Impressions Lower Extremity Ultrasound 03/04/17 0000 Signed Impressions: Service Date/Time: Saturday, March 04, 2017 09:26 - CONCLUSION: No evidence of deep venous thrombosis within the lower extremities. Gunnar Ingram MD Head CT 03/04/17 0000 Signed Impressions: Service Date/Time: Saturday, March 04, 2017 03:04 - CONCLUSION: Unremarkable study. Chuckie Miranda MD Objective Remarks GENERAL: Well-developed well-nourished. In no acute distress. SKIN: Warm and dry. Venous stasis changes bilateral lower extremities HEENT: Normocephalic. Pupils equal and round. Mucous membranes pink and moist. CARDIOVASCULAR: Regular rate and rhythm. Systolic murmur appreciated. RESPIRATORY: No accessory muscle use. Clear to auscultation. Breath sounds equal bilaterally. GASTROINTESTINAL: Abdomen soft, non-tender, nondistended. Bowel sounds x4. MUSCULOSKELETAL: Lower extremity skin color changes bilaterally with trace edema , no warmth or weeping. No clubbing or cyanosis. NEUROLOGICAL: Awake and alert. Moves upper and lower extremities spontaneously. Normal speech. PSYCHIATRIC: Mostly pleasantly confused but occasional paranoid mood and affect ; insight and judgment limited. Procedures none A/P Problem List: (1) Altered mental status ICD Code: R41.82 Status: Acute (2) UTI (urinary tract infection) ICD Code: N39.0 Status: Acute Assessment and Plan 86-year-old female with history of anxiety, hypertension, hypothyroidism, presents here via EMS for confusion. Metabolic Encephalopathy: Suspect secondary to UTI and underlying dementia. Head CT reviewed, unremarkable. On antibiotics for UTI. Monitor neuro checks. Consulted PT, recommends [facility] but needs supervision for safety. Patient reportedly recently on hospice however wants to revoke hospice, now patient refusing food/medications secondary to paranoia. Psychiatry and palliative care consulted. Case management consulted for assistance with sleep discharge. Paranoia/Delirium: possibly exacerbated UTI, however per family report, this has been going on for a while. Patient intermittently refusing medications and food. Consulted psychiatry, discussed with Dr. Hoover, recommended Haldol 1mg PO /IM BID. Currently out of restraints. UTI: UA with evidence of UTI. Urine culture with Escherichia coli sensitive to Macrobid. Received IV Rocephin 5 doses. Afebrile with no leukocytosis. Complete 7 day course of antibiotics with Macrobid. NIRAV: secondary to dehydration. Also possibly secondary to patient overusing diuretic antihypertensive medications. Cr 1.32. Given IVF, creatinine improved to <1. Continue IVF until patient tolerating oral intake. Continue to monitor. Hypokalemia/hyperkalemia: K 3.0->5.2 with replacement, DC'd. Now within normal limits. Elevated Troponin: patient initially denied any chest pain or angina equivalent. Troponin 0.08, 0.11, 0.12, 0.11. Suspect secondary to kidney disease. No further report of chest pain. DC telemetry. Bilateral Lower Extremity Edema: Exam appears consistent with chronic venous stasis changes, Doppler U/S negative for DVT. Elevation. Rigo swenson. Hypertension: chronic, BP currently well controlled off of medications. Resumed Imdur. Hold diuretics with NIRAV as above. Monitor BP, adjust antihypertensives as needed. Hypothyroidism: Continue patient's levothyroxine. TSH elevated, T3 low. Suspect noncompliance with medications therefore will hold off on increasing synthroid at this time. Outpatient f/up with PCP. Anxiety: chronic, continue ativan prn. Chronic back pain: Continue home Lidoderm, Flexeril, prednisone. Caution with medications that could worsen delirium. Vitamin D deficiency: Started on vitamin D replacement. DVT Prophylaxis: teds/SCDs Discharge Planning The patient is medically clear for discharge pending safe discharge arrangements , will need placement/supervision for safety. Previously D/W patient's daughter , who is agreeable. Palliative care discussed with the patient's family who are not amenable to hospice at this time. Case management consulted for assistance. Teto Wang Mar 08, 2017 13:27
[2017-03-08 17:30] VITALS: BP 136/67; PULSE 102; RESP 18; TEMP 98.5; O2SAT 96
[2017-03-08 20:00] VITALS: BP 120/52; PULSE 97; RESP 20; TEMP 97.1; O2SAT 95
[2017-03-08] MEDS: REMOVE OLD LIDOCAINE PATCH T-DERMAL SCH (21:00)
[2017-03-09] VITALS: BP 111/53; PULSE 80; RESP 20; TEMP 96.7; O2SAT 95
[2017-03-09 04:00] VITALS: BP 104/49; PULSE 79; RESP 24; TEMP 95.6; O2SAT 98
[2017-03-09] MEDS: LEVOTHYROXINE SODIUM 100 MCG TAB PO SCH (06:00)
[2017-03-09] MEDS: ISOSORBIDE MONONITRATE 20 MG TAB PO SCH (06:02)
[2017-03-09 08:31] VITALS: BP 118/56; PULSE 78; RESP 20; TEMP 96.4; O2SAT 97
[2017-03-09] MEDS: NITROFURANTOIN MONOHYD MACROCR 100 MG CAP PO SCH ×2 (08:34→17:44)
[2017-03-09] MEDS: HALOPERIDOL 1 MG TAB PO SCH ×2 (08:34→20:51)
[2017-03-09] MEDS: SODIUM CHLORIDE 0.9% FLUSH 10 ML FLUSH IV FLUSH SCH ×2 (08:34→20:45)
[2017-03-09] MEDS: predniSONE 5 MG TAB PO SCH (08:34)
[2017-03-09] MEDS: CHOLECALCIFEROL (VIT D3) 5000 UNIT CAP PO SCH (08:35)
[2017-03-09] MEDS: LIDOCAINE HCL 5% PATCH T-DERMAL SCH (08:35)
--- NOTE | 2017-03-09 09:32 | HHI.PR ---
Subjective Remarks Patient expressed suicidal ideation, consult psych. Poor PO intake , consult dietary. Patient has breakfast she is however refusing eating. Patient is telling me she doesn't belong to this floor and she has to go home. Denies any pain. Says she is fine and all she needs is to go home. No fever or chills. Denies n/v/d/c. Says she is not hungry. Her tongue is dry . Objective Vitals Vital Signs Date Time Temp Pulse Resp B/P Pulse Ox O2 Delivery O2 Flow Rate FiO2 03/09/17 08:31 96.4 78 20 118/56 97 03/09/17 04:00 95.6 79 24 104/49 98 03/09/17 00:00 96.7 80 20 111/53 95 03/08/17 20:00 97.1 97 20 120/52 95 03/08/17 17:30 98.5 102 18 136/67 96 03/08/17 12:00 96.0 93 16 111/54 95 I/O 03/08/17 03/08/17 03/08/17 03/09/17 03/09/17 03/09/17 07:00 15:00 23:00 07:00 15:00 23:00 Intake Total 200 ml 360 ml 240 ml 1857 ml Balance 200 ml 360 ml 240 ml 1857 ml Intake Oral 200 ml 360 ml 240 ml 1857 ml # Voids 1 4 1 2 # Bowel Movements 0 Result Diagram: 03/08/17 0850 03/08/17 0850 Imaging Last Impressions Lower Extremity Ultrasound 03/04/17 0000 Signed Impressions: Service Date/Time: Saturday, March 04, 2017 09:26 - CONCLUSION: No evidence of deep venous thrombosis within the lower extremities. Gunnar Ingram MD Head CT 03/04/17 0000 Signed Impressions: Service Date/Time: Saturday, March 04, 2017 03:04 - CONCLUSION: Unremarkable study. Chuckie Miranda MD Objective Remarks GENERAL: Elderly female, well-developed well-nourished, doesn't appear in acute distress. SKIN: Warm and dry. Venous stasis changes bilateral lower extremities HEENT: Normocephalic. Pupils equal and round. Mucous membranes very dry. CARDIOVASCULAR: Regular rate and rhythm. Systolic murmur appreciated. RESPIRATORY: No accessory muscle use. Clear to auscultation. Breath sounds equal bilaterally. GASTROINTESTINAL: Abdomen soft, non-tender, nondistended. Bowel sounds x4. MUSCULOSKELETAL: Lower extremity skin color changes bilaterally with trace edema , no warmth or weeping. No clubbing or cyanosis. NEUROLOGICAL: Awake and alert. Moves upper and lower extremities spontaneously. Normal speech. PSYCHIATRIC: Mostly pleasantly confused but occasional paranoid mood and affect ; insight and judgment limited. Procedures none A/P Problem List: (1) Altered mental status ICD Code: R41.82 Status: Acute (2) UTI (urinary tract infection) ICD Code: N39.0 Status: Acute Assessment and Plan 86-year-old female with history of anxiety, hypertension, hypothyroidism, presents here via EMS for confusion. Metabolic Encephalopathy: Suspect secondary to UTI and underlying dementia. Head CT reviewed, unremarkable. On antibiotics for UTI. Monitor neuro checks. Consulted PT, recommends [facility] but needs supervision for safety. Patient reportedly recently on hospice however wants to revoke hospice, now patient refusing food/medications secondary to paranoia?. Psychiatry and palliative care consulted. Case management consulted for assistance with sleep discharge. Paranoia/Delirium: possibly exacerbated UTI, however per family report, this has been going on for a while. Patient intermittently refusing medications and food. Consulted psychiatry, discussed with Dr. Hoover, recommended Haldol 1mg PO /IM BID. Currently out of restraints. Suicidal ideation: Reconsult psychiatry Will do cognitive eval. Anorexia: Will do swallow eval. Patient refusing ensure. Start megace. Will ask dietary on consult. Will check prealbumin. UTI: UA with evidence of UTI. Urine culture with Escherichia coli sensitive to Macrobid. Received IV Rocephin 5 doses. Afebrile with no leukocytosis. Complete 7 day course of antibiotics with Macrobid. NIRAV: secondary to dehydration. Also possibly secondary to patient overusing diuretic antihypertensive medications. Cr 1.32. Given IVF, creatinine improved to <1. Continue IVF until patient tolerating oral intake. Continue to monitor. Hypokalemia/hyperkalemia: K 3.0->5.2 with replacement, DC'd. Now within normal limits. Elevated Troponin: patient initially denied any chest pain or angina equivalent. Troponin 0.08, 0.11, 0.12, 0.11. Suspect secondary to kidney disease. No further report of chest pain. DC telemetry. Bilateral Lower Extremity Edema: Exam appears consistent with chronic venous stasis changes, Doppler U/S negative for DVT. Elevation. Rigo hose. Hypertension: chronic, BP currently well controlled off of medications. Resumed Imdur. Hold diuretics with NIRAV as above. Monitor BP, adjust antihypertensives as needed. Hypothyroidism: Continue patient's levothyroxine. TSH elevated, T3 low. Suspect noncompliance with medications therefore will hold off on increasing synthroid at this time. Outpatient f/up with PCP. Anxiety: chronic, continue ativan prn. Chronic back pain: Continue home Lidoderm, Flexeril, prednisone. Caution with medications that could worsen delirium. Vitamin D deficiency: Started on vitamin D replacement. DVT Prophylaxis: teds/SCDs Discharge Planning The patient is medically clear for discharge pending safe discharge arrangements , will need placement/supervision for safety. Discussed with patient's daughter, who is agreeable. Patient is not eating, has dry tongue, she is also refusing meds. With suicidal ideation, consult psych. Palliative care discussed with the patient's family who are not amenable to hospice at this time. Case management consulted for assistance. Discussed at length with the patient, nurse, daughter Audrey Bowser MD Mar 09, 2017 09:32
[2017-03-09] MEDS ORDERED: SENNOSIDES 8.6 MG TAB PO PRN (10:30)
[2017-03-09] MEDS ORDERED: LACTULOSE SYRUP 20 GM/30 ML CUP PO PRN (10:30)
[2017-03-09] MEDS: DOCUSATE SODIUM 50 MG/SENNA 8.6 MG TAB PO SCH ×2 (10:30→20:45)
[2017-03-09] MEDS ORDERED: MEGESTROL ACETATE SUSP 400 MG/10 ML CUP PO ONE (10:30)
[2017-03-09] MEDS ORDERED: BISACODYL 10 MG SUPP RECTAL PRN (10:30)
[2017-03-09] MEDS ORDERED: MAGNESIUM HYDROXIDE SUSP 30 ML CUP PO PRN (10:30)
[2017-03-09] MEDS: SODIUM CHLOR 0.9% 1000 ML INJ 1,000 ML IV SCH (10:53)
[2017-03-09 12:32] VITALS: BP 133/74; PULSE 76; RESP 20; TEMP 95.6; O2SAT 96
--- NOTE | 2017-03-09 12:40 | HHI.HCPN ---
Reason for visit a. To assist with evaluation and management of symptoms including: confusion b. To assist medical decision maker(s) with: better understanding of current medical conditions; weighing benefits/burdens of medical treatment options; making medical treatment decisions. . Subjective/Interval History Ms. Mayers arrived at [facility] on 03/04/17 via EMS for evaluation because her caregiver stated she had not been acting normal. The patient's caregiver indicated the patient had been flushing her daily medications down the toilet as well as antibiotics that has been prescribed by her PCP for her UTI. The caregiver also reported the patient had taken # 14 triamterene/HCTZ pills over the past day or so. Ms. Mayers requested she be transported to the hospital to be assessed alleging her family was drugging her and she had to get out. The patient was admitted for observation due to her altered mental status and evidence of UTI; she was started on IV Rocephin and received 5 doses. Urine culture with Escherichia coli sensitive to Macrobid. Rocephin with discontinued; started on a 7 day course of Macrobid but patient is refusing medication. HR: 78, respirations 20, BP 118/56, oxygen saturation 97% on room air, oral temperature 96.4 BUN: 18, creatinine 0.93, GFR 57. Patient remains intermittently confused. Objective Vital Signs Date Time Temp Pulse Resp B/P Pulse Ox O2 Delivery O2 Flow Rate FiO2 03/09/17 08:31 96.4 78 20 118/56 97 03/09/17 04:00 95.6 79 24 104/49 98 03/09/17 00:00 96.7 80 20 111/53 95 03/08/17 20:00 97.1 97 20 120/52 95 03/08/17 17:30 98.5 102 18 136/67 96 Intake & Output 03/09/17 03/09/17 07:00 19:00 Intake Total 2097 ml Balance 2097 ml Intake Oral 2097 ml # Voids 3 Physical Exam CONSTITUTIONAL/GENERAL: This is an adequately nourished patient, not failure to thrive. Elderly women, confused SKIN: No jaundice, rashes, or lesions. Ecchymoses on upper extremities. No wounds seen anteriorly. Skin temperature appropriate. Not diaphoretic. HEAD: Atraumatic. Normocephalic. EYES: Pupils equal and round and reactive. Extraocular motions intact. No scleral icterus. No injection or drainage. Fundi not examined. ENT: Hearing grossly normal. Nose without bleeding or purulent drainage. Throat without visible erythema, exudates, masses, or lesions. NECK: Trachea midline. Supple, nontender. No palpable thyroid enlargement or nodularity. CARDIOVASCULAR: Regular rate and rhythm without murmurs, gallops, or rubs. No JVD. Peripheral pulses symmetric. RESPIRATORY/CHEST: Symmetric, unlabored respirations. Clear to auscultation. Breath sounds equal bilaterally. No wheezes, rales, or rhonchi. GASTROINTESTINAL: Abdomen soft, non-tender, nondistended. No hepato-splenomegaly , or palpable masses. No guarding. Bowel sounds present. GENITOURINARY: Without palpable bladder distension. Nair catheter in place. MUSCULOSKELETAL: edemetous, red lower ext.. LYMPHATICS: No palpable cervical or supraclavicular adenopathy. NEUROLOGICAL: Awake and alert. Motor and sensory grossly within normal limits. Follow some commands. Cognitively sharp. PSYCHIATRIC: Confused. No anxious on my visit.. Diagnostic Tests Laboratory Laboratory Tests Test 03/08/17 08:50 White Blood Count 4.7 TH/MM3 (4.0-11.0) Red Blood Count 4.51 MIL/MM3 (4.00-5.30) Hemoglobin 13.1 GM/DL (11.6-15.3) Hematocrit 39.7 % (35.0-46.0) Mean Corpuscular Volume 87.9 FL (80.0-100.0) Mean Corpuscular Hemoglobin 29.0 PG (27.0-34.0) Mean Corpuscular Hemoglobin 33.0 % Concent (32.0-36.0) Red Cell Distribution Width 21.7 % (11.6-17.2) Platelet Count 120 TH/MM3 (150-450) Mean Platelet Volume 8.4 FL (7.0-11.0) Neutrophils (%) (Auto) 65.8 % (16.0-70.0) Lymphocytes (%) (Auto) 23.3 % (9.0-44.0) Monocytes (%) (Auto) 8.4 % (0.0-8.0) Eosinophils (%) (Auto) 1.9 % (0.0-4.0) Basophils (%) (Auto) 0.6 % (0.0-2.0) Neutrophils # (Auto) 3.1 TH/MM3 (1.8-7.7) Lymphocytes # (Auto) 1.1 TH/MM3 (1.0-4.8) Monocytes # (Auto) 0.4 TH/MM3 (0-0.9) Eosinophils # (Auto) 0.1 TH/MM3 (0-0.4) Basophils # (Auto) 0.0 TH/MM3 (0-0.2) CBC Comment DIFF FINAL Differential Comment Sodium Level 139 MEQ/L (136-145) Potassium Level 4.6 MEQ/L (3.5-5.1) Chloride Level 109 MEQ/L (98-107) Carbon Dioxide Level 19.3 MEQ/L (21.0-32.0) Anion Gap 11 MEQ/L (5-15) Blood Urea Nitrogen 19 MG/DL (7-18) Creatinine 0.93 MG/DL (0.50-1.00) Estimat Glomerular Filtration 57 ML/MIN (>89) Rate Random Glucose 57 MG/DL (74-106) Calcium Level 8.5 MG/DL (8.5-10.1) Result Diagram: 03/08/17 0850 03/08/17 0850 Assessment and Plan Disease Oriented Problem List: (1) UTI (urinary tract infection) (2) Altered mental status (3) Cirrhosis (4) Hepatitis C (5) Hypothyroid (6) CHF (congestive heart failure) (7) GERD (gastroesophageal reflux disease) Symptom Scale: (1) Confusion 0-10 Scale: Unable to quantify (unsure what pt baseline is at this point. ) Pertinent Non-Medical Issues Psychosocial: Spiritual: Legal: Ethical issues impacting care: Important Contacts Patricia Beltran (daughter) [phone] or [phone]. Aleksandra Padilla (daughter) [phone] Hilda (daughter) [phone] Liban phone number unknown ( per daughter patricia, he is the health care surrogate and is also an anesthesiologist). Prognosis 86 year old with hx of cirrohsis, (hepatitis C), CHF, hypothyrodism, and reccurent UTI. Although in terms of cirrhosis- on surface does not appear to meet hospice criteria ( INR of >1.5 and Serrum Albumin of <2.5) Pt's currently INR is 1.1 and Albumin is 2.5). Pt is confused, I do not see any documentation of Dementia thus far, but Her FAST score does not appear to be 7C or beyond. However there is a convergence of multiple issues, with none dominant that makes her condition destablizing. She continue to have cardiac issue, mainly with edema for which it has been very difficult to control despite multiple diurectis, where it has been weeping. She has fallen which required ER visit. Furthermore her hallucinations and mentation has progressed since 01/22 to which she worry someone poisoned her food. Her appetite fluctuates. This confusion has been going on for 1 month. Prognosis is poor if mentation, hallucination continue this trend of decline, and goals of care is comfort only. Code Status: No Code Plan ==Capacity- Poor insight, no capacity to make decisions. ==Code:-- She has a DNR, and family wish to continue to honor that. == Adavance directives: Son Liban has medical power of sports attorney. Awaiting copy. == Goals of Care: Spoke with daughter Hilda. Family still weighing the risk and benefits. At this time Hilda feels overall, not ready to go to a care center. Again family feels pt was overmedicated in January 2017 and since then pt has not been the same. Family understands if pt does go to a care center, likely pt will be medicated to control delerium, as pt on hospice are not on restraints. Pt's daughter Hilda wary of overmedication and hospice at this point in time. They endorse to keep pt in the hospital until, a place for placement could be found. I encourage her to continue to speak with case management == Confusion/ hallucination/ paranoia- likely multifactorial, new enviorment, general decline (was dehydrated). Will defer to psych, who have started ability. ==Palliative Care will continue to follow, but family knows we will not be available over the weekend. Suha Brantley Mar 09, 2017 12:39
--- NOTE | 2017-03-09 17:10 | HHI.HCPN ---
Reason for visit a. To assist with evaluation and management of symptoms including: confusion b. To assist medical decision maker(s) with: better understanding of current medical conditions; weighing benefits/burdens of medical treatment options; making medical treatment decisions. . Subjective/Interval History Ms. Mayers arrived at [facility] on 03/04/17 via EMS for evaluation because her caregiver stated she had not been acting normal. The patient's caregiver indicated the patient had been flushing her daily medications down the toilet as well as antibiotics that has been prescribed by her PCP for her UTI. The caregiver also reported the patient had taken # 14 triamterene/HCTZ pills over the past day or so. Ms. Mayers requested she be transported to the hospital to be assessed alleging her family was drugging her and she had to get out. The patient was admitted for observation due to her altered mental status and evidence of UTI; she was started on IV Rocephin and received 5 doses. Urine culture with Escherichia coli sensitive to Macrobid. Rocephin with discontinued; started on a 7 day course of Macrobid but patient is refusing medication. HR: 78, respirations 20, BP 118/56, oxygen saturation 97% on room air, oral temperature 96.4 BUN: 18, creatinine 0.93, GFR 57. Patient remains intermittently confused. She was able to provide extensive information about each of her children including their careers and where they live, but then stated she did not know why she was here and patsy he asked me to help her.Per notes, patient expressed suicidal ideation earlier this morning and psychiatry was reconsulted. At the time of my exam, the patient and I discussed suicidal ideation. Her nutritional intake remains poor; patient refusing to eat. ST was consulted for a swallow evaluation and recommendations were made for a mechanically soft diet with thin liquids. Dietary was also consulted. . Family/friend interactions Spoke to patient's daughter, Aleksandra, who verbalized frustration about the since admission status (observation versus inpatient). Phone call placed to family preservation caseworker, Lorrie, to obtain additional information; will place follow up conversation to Aleksandra later today or tomorrow morning on 03/10/17. . Objective Vital Signs Date Time Temp Pulse Resp B/P Pulse Ox O2 Delivery O2 Flow Rate FiO2 03/09/17 12:32 95.6 76 20 133/74 96 03/09/17 08:31 96.4 78 20 118/56 97 03/09/17 04:00 95.6 79 24 104/49 98 03/09/17 00:00 96.7 80 20 111/53 95 03/08/17 20:00 97.1 97 20 120/52 95 03/08/17 17:30 98.5 102 18 136/67 96 Intake & Output 03/09/17 03/09/17 07:00 19:00 Intake Total 2097 ml 120 ml Balance 2097 ml 120 ml Intake Oral 2097 ml 120 ml # Voids 3 2 # Bowel Movements 2 . Physical Exam CONSTITUTIONAL/GENERAL: This is an adequately nourished patient, elderly female patient in no acute distress. SKIN: No jaundice, rashes, or lesions. Ecchymoses on upper extremities. No wounds seen anteriorly. Skin temperature appropriate. Not diaphoretic. HEAD: Atraumatic. Normocephalic. EYES: Pupils equal and round and reactive. Extraocular motions intact. No scleral icterus. No injection or drainage. Fundi not examined. ENT: Hearing grossly normal. Nose without bleeding or purulent drainage. NECK: Trachea midline. Supple, nontender. No palpable thyroid enlargement or nodularity. CARDIOVASCULAR: Regular rate and rhythm without murmurs, gallops, or rubs. No JVD. Peripheral pulses symmetric. RESPIRATORY/CHEST: Symmetric, unlabored respirations. Breath sounds diminished bilaterally. No wheezes or rhonchi. GASTROINTESTINAL: Abdomen soft, non-tender, nondistended. No hepato-splenomegaly , or palpable masses. Bowel sounds present. GENITOURINARY: Without palpable bladder distension. MUSCULOSKELETAL: Bilateral lower extremities with 1+ to 2+ edema; wound noted on left chin with dressing intact. LYMPHATICS: No palpable cervical or supraclavicular adenopathy. NEUROLOGICAL: Awake, intermittently confused. Long-term memory intact. Follow some commands. PSYCHIATRIC: Mildmoderate anxiety observed on exam. . Diagnostic Tests Laboratory Laboratory Tests Test 03/08/17 08:50 White Blood Count 4.7 TH/MM3 (4.0-11.0) Red Blood Count 4.51 MIL/MM3 (4.00-5.30) Hemoglobin 13.1 GM/DL (11.6-15.3) Hematocrit 39.7 % (35.0-46.0) Mean Corpuscular Volume 87.9 FL (80.0-100.0) Mean Corpuscular Hemoglobin 29.0 PG (27.0-34.0) Mean Corpuscular Hemoglobin 33.0 % Concent (32.0-36.0) Red Cell Distribution Width 21.7 % (11.6-17.2) Platelet Count 120 TH/MM3 (150-450) Mean Platelet Volume 8.4 FL (7.0-11.0) Neutrophils (%) (Auto) 65.8 % (16.0-70.0) Lymphocytes (%) (Auto) 23.3 % (9.0-44.0) Monocytes (%) (Auto) 8.4 % (0.0-8.0) Eosinophils (%) (Auto) 1.9 % (0.0-4.0) Basophils (%) (Auto) 0.6 % (0.0-2.0) Neutrophils # (Auto) 3.1 TH/MM3 (1.8-7.7) Lymphocytes # (Auto) 1.1 TH/MM3 (1.0-4.8) Monocytes # (Auto) 0.4 TH/MM3 (0-0.9) Eosinophils # (Auto) 0.1 TH/MM3 (0-0.4) Basophils # (Auto) 0.0 TH/MM3 (0-0.2) CBC Comment DIFF FINAL Differential Comment Sodium Level 139 MEQ/L (136-145) Potassium Level 4.6 MEQ/L (3.5-5.1) Chloride Level 109 MEQ/L (98-107) Carbon Dioxide Level 19.3 MEQ/L (21.0-32.0) Anion Gap 11 MEQ/L (5-15) Blood Urea Nitrogen 19 MG/DL (7-18) Creatinine 0.93 MG/DL (0.50-1.00) Estimat Glomerular Filtration 57 ML/MIN (>89) Rate Random Glucose 57 MG/DL (74-106) Calcium Level 8.5 MG/DL (8.5-10.1) Prealbumin 5 MG/DL (20-40) . Result Diagram: 03/08/17 0850 03/08/17 0850 Assessment and Plan Disease Oriented Problem List: (1) UTI (urinary tract infection) (2) Altered mental status (3) Cirrhosis (4) Hepatitis C (5) Hypothyroid (6) CHF (congestive heart failure) (7) GERD (gastroesophageal reflux disease) Symptom Scale: (1) Confusion 0-10 Scale: Unable to quantify (unsure what pt baseline is at this point. ) Pertinent Non-Medical Issues Psychosocial: Spiritual: Legal: Ethical issues impacting care: Important Contacts Patricia Beltran (daughter) [phone] or [phone]. Aleksandra Padilla (daughter) [phone] Hilda (daughter) [phone] Liban phone number unknown ( per daughter patricia, he is the health care surrogate and is also an anesthesiologist). Prognosis 86 year old with hx of cirrohsis, (hepatitis C), CHF, hypothyrodism, and reccurent UTI. Although in terms of cirrhosis- on surface does not appear to meet hospice criteria ( INR of >1.5 and Serrum Albumin of <2.5) Pt's currently INR is 1.1 and Albumin is 2.5). Pt is confused, I do not see any documentation of Dementia thus far, but Her FAST score does not appear to be 7C or beyond. However there is a convergence of multiple issues, with none dominant that makes her condition destablizing. She continue to have cardiac issue, mainly with edema for which it has been very difficult to control despite multiple diurectis, where it has been weeping. She has fallen which required ER visit. Furthermore her hallucinations and mentation has progressed since 01/22 to which she worry someone poisoned her food. Her appetite fluctuates. This confusion has been going on for 1 month. Prognosis is poor if mentation, hallucination continue this trend of decline, and goals of care is comfort only. Code Status: No Code Plan ==Capacity- Poor insight, no capacity to make decisions. ==Code:-- She has a DNR, and family wish to continue to honor that. == Advanced directives: Son Liban has medical power of recovery room rn. Awaiting copy. == Goals of Care: Spoke with harshal [place], who indicates aggressive goals. Family would like SNF for rehab discharge. == Confusion/ hallucination/ paranoia- likely multifactorial, new environment, general decline. Patient started on Abilify on 03/05/17. Psychiatry was reconsulted today 03/09/17 for suicidal ideation. == Decreased appetite: Patient's nutritional intake remains poor; patient refusing to eat. ST was consulted for a swallow evaluation and recommendations were made for a mechanically soft diet with thin liquids. Dietary consult pending. == UTI: Urine culture with Escherichia coli sensitive to Macrobid. Rocephin with discontinued; started on a 7 day course of Macrobid but patient is refusing medication. == Discussed with case management, Lorrie == Palliative care will continue to follow patient throughout her hospitalization to establish trust, assist with symptom management and clarification of medical treatment goals. Attestation To help prompt me to consider important information that might be impacting today's encounter and assessment, information from prior notes written by myself or my colleagues may have been "brought forward" into today's note. My signature on this note, however, is an attestation that I personally performed the exam, history, and/or decision-making noted today, and, unless otherwise indicated, the interactions with patient, family, and staff as well as the review of records all occurred today. I also attest that the listed assessment and stated plan reflect my best clinical judgment today based on the combination of historical information, prior notes, and today's exam/ interactions. When time spent is documented, it refers only to time spent today by the signer, or if indicated, combined time spent today by collaborating physician/nurse practitioner. . Suha Brantley Mar 09, 2017 17:10
[2017-03-09 17:14] VITALS: BP 123/56; PULSE 84; RESP 20; TEMP 97.2; O2SAT 96
--- NOTE | 2017-03-09 17:45 | HHI.PYPN ---
Subjective Remarks Patient seen for psychiatric reevaluation, she was calm, cooperative and pleasant, reports good mood and states she would like to go home as soon as possible. She reports good sleep, denies hopelessness, helplessness, denies SI/ HI/VH/AH. She is future oriented and is able to verbalize protective factor for suicidality. She is fully oriented times 3, with good attention spam, appropriate language and speech, naming, repetition, abstract thinking, but impaired recent memory and executive function. Full cognitive test was not possible due to patient reluctancy. As she was asked if felt safe in the hospital she became paranoid and stated that the are two man manipulation her food and her medications. She says she does nto trust people and is better if she does not eat anything. Patient had an episode of agitation last night in which she allegedly verbalized SI. Review of Systems Constitutional: COMPLAINS OF: Night Sweats Psychiatric: COMPLAINS OF: Delusions Other no somatic complains Objective Alert: Yes [place]: Person, Place, Date, Situation Mood: Calm Affect: Appropriate Memory Intact: Immediate, Remote Hallucinations: Other (no at the moment ) Delusions: Yes Delusion Type: Paranoid Suicidal: Ideation (NO SI) Homicidal: Ideation (no HI) Insight/Judgment poor Vitals/IOs Vital Signs Date Time Temp Pulse Resp B/P Pulse Ox O2 Delivery O2 Flow Rate FiO2 03/09/17 17:14 97.2 84 20 123/56 96 Intake and Output 03/08/17 03/08/17 03/09/17 08:00 16:00 00:00 Intake Total 200 ml 360 ml 240 ml Balance 200 ml 360 ml 240 ml Assessment & Plan Problem List: (1) Delirium due to another medical condition Assessment & Plan: Patient shows significant paranoid ideation on evaluation. unclear etiology at this moment, probably related with delirium related with UTI and other medical conditions. will recommended a low dose of standing antipsychotic, Risperdal 0.25 bid. Patient might benefit of psychiatric admission if perceptual disturbances persist beyond medical clearance. ICD Code: F05 Assessment & Plan Estimated LOS: days Justification for Cont. Inpt. Patient does not meet criteria for psychiatric admission at this moment. Ta Saravia MD Mar 09, 2017 17:45
[2017-03-09 20:00] VITALS: BP 143/61; PULSE 79; RESP 22; TEMP 98.6; O2SAT 96
[2017-03-09] MEDS: risperiDONE 0.25 MG TAB PO SCH (20:51)
[2017-03-09] MEDS: REMOVE OLD LIDOCAINE PATCH T-DERMAL SCH (20:52)
[2017-03-10 00:06] VITALS: BP 138/73; PULSE 84; RESP 22; TEMP 96.7; O2SAT 96
[2017-03-10] MEDS: SODIUM CHLOR 0.9% 1000 ML INJ 1,000 ML IV SCH ×2 (00:20→12:16)
[2017-03-10 04:24] VITALS: BP 135/81; PULSE 93; RESP 24; TEMP 98.1; O2SAT 95
[2017-03-10] MEDS: LEVOTHYROXINE SODIUM 100 MCG TAB PO SCH (05:44)
[2017-03-10] MEDS: ISOSORBIDE MONONITRATE 20 MG TAB PO SCH (06:04)
[2017-03-10 08:05] VITALS: BP 121/75; PULSE 83; RESP 22; TEMP 96.9; O2SAT 96
[2017-03-10] MEDS: CHOLECALCIFEROL (VIT D3) 5000 UNIT CAP PO SCH (08:46)
[2017-03-10] MEDS: SODIUM CHLORIDE 0.9% FLUSH 10 ML FLUSH IV FLUSH SCH ×2 (08:46→21:00)
[2017-03-10] MEDS: HALOPERIDOL 1 MG TAB PO SCH ×2 (08:46→22:27)
[2017-03-10] MEDS: risperiDONE 0.25 MG TAB PO SCH ×2 (08:47→22:27)
[2017-03-10] MEDS: DOCUSATE SODIUM 50 MG/SENNA 8.6 MG TAB PO SCH ×2 (08:47→22:26)
[2017-03-10] MEDS: NITROFURANTOIN MONOHYD MACROCR 100 MG CAP PO SCH ×2 (08:47→18:00)
[2017-03-10] MEDS: predniSONE 5 MG TAB PO SCH (08:47)
[2017-03-10] MEDS: MEGESTROL ACETATE SUSP 400 MG/10 ML CUP PO SCH (08:47)
[2017-03-10] MEDS: LIDOCAINE HCL 5% PATCH T-DERMAL SCH (08:49)
[2017-03-10] MEDS ORDERED: HALO1TAB PO (10:51)
[2017-03-10] MEDS ORDERED: RISP.25 PO (10:51)
[2017-03-10] MEDS ORDERED: CYCL1TAB29 PO (10:51)
[2017-03-10] MEDS ORDERED: MEGE40SU PO (10:51)
--- NOTE | 2017-03-10 10:51 | HHI.DS ---
Discharge Summary Admission Date Mar 04, 2017 at 04:05 Discharge Date: Mar 11, 2017 Admitting Diagnosis UTI, delirium (1) Psychoses ICD Code: F29 Diagnosis: Principal (2) Altered mental status ICD Code: R41.82 Diagnosis: Principal (3) UTI (urinary tract infection) ICD Code: N39.0 Diagnosis: Principal (4) Hypothyroid ICD Code: E03.9 Diagnosis: Secondary (5) Hepatitis C ICD Code: B19.20 Diagnosis: Secondary (6) GERD (gastroesophageal reflux disease) ICD Code: K21.9 Diagnosis: Secondary Procedures none Brief History - From Admission 86-year-old female with history of anxiety, hypertension, hypothyroidism, presents here via EMS for confusion. The patient is currently awake, alert, oriented to person, [facility], year 2016, president [place], but not month/date. She is an extremely poor historian, unable to provide her medical history, and she is fixed on discussing that she is being held captive here and just wants to go home with her family. She states her family has been trying to get her out of hospice for two weeks now. The patient states she wants to go home today "no matter what". She says she will be going home with her daughter Edyta. Per ER MD note, Caregiver reported she's been more confused for the past several weeks; She was given antibiotics for UTI but hasn't been taking it; She reportedly flushed all her medications down the toilet. Caregiver reports that she also took 14 triamterene/HCTZ pills over the past day or so. Attempted discussing any symptoms the patient may have, and she immediately starts discussing her discharge, states "why won't you just let me go home?" She did eventually deny any fever/chills, abdominal pain, dysuria, increased urinary frequency/urgency. She states she has been eating well. She denies any medical complaints, although she does show me her legs which appear to be swollen, and states "does this look like hospice to you?" Otherwise no acute events overnight. The patient states her family will be coming today to get her. CBC/BMP: 03/08/17 0850 03/08/17 0850 Significant Findings Laboratory Tests Test 03/08/17 08:50 Red Cell Distribution Width 21.7 % (11.6-17.2) Platelet Count 120 TH/MM3 (150-450) Monocytes (%) (Auto) 8.4 % (0.0-8.0) Chloride Level 109 MEQ/L (98-107) Carbon Dioxide Level 19.3 MEQ/L (21.0-32.0) Blood Urea Nitrogen 19 MG/DL (7-18) Estimat Glomerular Filtration 57 ML/MIN (>89) Rate Random Glucose 57 MG/DL (74-106) Prealbumin 5 MG/DL (20-40) Imaging Last Impressions Lower Extremity Ultrasound 03/04/17 0000 Signed Impressions: Service Date/Time: Saturday, March 04, 2017 09:26 - CONCLUSION: No evidence of deep venous thrombosis within the lower extremities. Gunnar Ingram MD Head CT 03/04/17 0000 Signed Impressions: Service Date/Time: Saturday, March 04, 2017 03:04 - CONCLUSION: Unremarkable study. Chuckie Miranda MD PE at Discharge GENERAL: Elderly female, well-developed well-nourished, doesn't appear in acute distress. SKIN: Warm and dry. Venous stasis changes bilateral lower extremities HEENT: Normocephalic. Pupils equal and round. Mucous membranes very dry. CARDIOVASCULAR: Regular rate and rhythm. Systolic murmur appreciated. RESPIRATORY: No accessory muscle use. Clear to auscultation. Breath sounds equal bilaterally. GASTROINTESTINAL: Abdomen soft, non-tender, nondistended. Bowel sounds x4. MUSCULOSKELETAL: Lower extremity skin color changes bilaterally with trace edema , no warmth or weeping. No clubbing or cyanosis. NEUROLOGICAL: Awake and alert. Moves upper and lower extremities spontaneously. Normal speech. PSYCHIATRIC: Mostly pleasantly confused but occasional paranoid mood and affect ; insight and judgment limited. Hospital Course Worsening psychosis, started haldol 1 mg po bid andl risperdal by psych .Patient is a ccepted tp med/psych floor Spoke with Dr Saravia. Discharged to psych floor. Patient needs to continue calorie count. continue megace for appetite enhancement. Swallow eval, cognitive eval. UTI: UA with evidence of UTI. Urine culture with Escherichia coli sensitive to Macrobid. Received IV Rocephin 5 doses. Afebrile with no leukocytosis. Complete 7 day course of antibiotics with Macrobid. NIRAV: secondary to dehydration. Also possibly secondary to patient overusing diuretic antihypertensive medications. Cr 1.32. Given IVF, creatinine improved to <1. Continue IVF until patient tolerating oral intake. Continue to monitor. Hypokalemia/hyperkalemia: K 3.0->5.2 with replacement, DC'd. Now within normal limits. Elevated Troponin: patient initially denied any chest pain or angina equivalent. Troponin 0.08, 0.11, 0.12, 0.11. Suspect secondary to kidney disease. No further report of chest pain. DC telemetry. Bilateral Lower Extremity Edema: Exam appears consistent with chronic venous stasis changes, Doppler U/S negative for DVT. Elevation. Rigo hose. Hypertension: chronic, BP currently well controlled off of medications. Resumed Imdur. Hold diuretics with NIRAV as above. Monitor BP, adjust antihypertensives as needed. Hypothyroidism: Continue patient's levothyroxine. TSH elevated, T3 low. Suspect noncompliance with medications therefore will hold off on increasing synthroid at this time. Outpatient f/up with PCP. Anxiety: chronic, continue ativan prn. Chronic back pain: Continue home Lidoderm, Flexeril, prednisone. Caution with medications that could worsen delirium. Vitamin D deficiency: Started on vitamin D replacement. DVT Prophylaxis: teds/SCDs Discharge Planning The patient is medically clear for discharged pending safe discharge arrangements, will need placement/supervision for safety. Discussed with patient's daughter, who is agreeable. Patient is not eating, has dry tongue, she is also refusing meds. With suicidal ideation, consult psych. Palliative care discussed with the patient's family who are not amenable to hospice at this time. Case management consulted for assistance. Seen by psych. I discussed with Dr Manjit rodriguez , patient with psychosis, patient meets inpatient psych admission she will benefit from DC to psych. Discharge to psych/med . Pt Condition on Discharge: Stable Discharge Disposition: Disc to Psych Care Fac Discharge Time: > 30 minutes Discharge Instructions DIET: Follow Instructions for: Heart Healthy Diet Speech Therapy-Diet Recommends: Mechanical Soft Activities you can perform: Regular-No Restrictions Follow up Referrals: PCP Follow-up - 2-3 Days New Medications: Aripiprazole (Abilify) 2 Mg Tab 1 MG PO DAILY PRN paranoia #15 TAB Cholecalciferol (Vitamin D3) 5,000 Unit Cap 5000 UNITS PO DAILY Nutritional Supplement #30 CAP Cyclobenzaprine (Flexeril) 10 Mg Tab 5 MG PO Q8H PRN MUSCLE SPASM #10 TAB Haloperidol (Haloperidol) 1 Mg Tab 1 MG PO BID Agitation #30 TAB Megestrol Liq (Megestrol Liq) 40 Mg/Ml Susp 400 MG PO DAILY appetite enhancer #120 BOTTLE Nitrofurantoin Monohydrate Macrocrystals (Nitrofurantoin Monohydrate Macrocrystals) 100 Mg Cap 100 MG PO BIDPC UTI #10 CAP Prednisone (Prednisone) 5 Mg Tab 5 MG PO DAILY Inflammation #30 TAB Risperidone (Risperdal) 0.25 Mg Tab 0.25 MG PO Q12HR Agitation #30 TAB Changed Medications: Cyclobenzaprine (Flexeril) 5 Mg Tab 5 MG PO TID PRN Muscle Spasm #90 Ref 0 TAB (Medication details modified) Continued Medications: Albuterol 6.7 GM Inh (Proventil Hfa 6.7 GM Inh) 90 Mcg/Act Aer 2 PUFF INH Q4-6H PRN SHORTNESS OF BREATH #1 Ref 0 INHALER Bisacodyl Supp (Dulcolax Supp) 10 Mg Supp 10 MG RECTAL DAILY PRN CONSTIPATION #12 Ref 0 SUPP Isosorbide Mononitrate (Isosorbide Mononitrate) 10 Mg Tab 10 MG PO DAILY Take 2 doses 7 hours apart. Prevent Chest Pain #60 TAB Levothyroxine (Levothyroxine) 100 Mcg Tab 100 MCG PO DAILY Thyroid #30 Ref 0 TAB Lidocaine (Lidoderm) 5 % Adh..patch Lidocaine Topical (Lidocaine Topical) 2 % Jel 1 APPLIC TOPICAL QID Pain Management Ref 0 GM Lorazepam (Ativan) 0.5 Mg Tab 0.5 MG PO Q4H PRN For mild anxiety / dyspnea Ref 0 TAB Mupirocin Topical (Bactroban Topical) 22 Gm Cream 1 APPLIC TOPICAL BID Mgmt Bacterial Infection #1 Ref 0 TUBE Nitroglycerin SL (Nitrostat SL) 0.4 Mg Subl 0.4 MG SL DIRECTED 1 tablet under the tongue as needed for chest pain. Repeat every 5 minutes for a total of 3 DOSES or call 911 if NO relief. PRN CHEST PAIN #100 Ref 0 TAB.SL Potassium Chloride Liq (Potassium Chloride Liq) 20 Meq/15 Ml Soln 20 MEQ PO TID Electrolyte Replacement Ref 0 ML Simethicone (Simethicone) 125 Mg Chw 125 MG CHEW QID PRN GAS RETENTION Ref 0 TAB ([Haloperidol Gel]) 1 ML TOPICAL Q4HR ([Ketoprofen Gel]) 5 % TOPICAL TID ([Lorazepam Gel]) 1 ML TOPICAL Q4HR Discontinued Medications: Diclofenac Sodium (Voltaren) 100 Gm Gel..gram. Diphenhydramine HCl (Benadryl Allergy) 25 Mg Cap Itching Guaifenesin/Dextromethorphan Liq (Guaifenesin-Dm Liq) 100-10 Mg/5 Ml Syrp Hyoscyamine Odt (Levsin-SL) 0.125 Mg Subl 0.125 MG SL Q4H Gastrointestinal disorders Ref 0 TAB.SL Ketoconazole Topical (Ketoconazole Topical) 2% Cream 1 APPLIC TOPICAL DAILY Fungal Infection #15 Ref 0 GM Loratadine (Claritin) 10 Mg Tablet Metolazone (Metolazone) 5 Mg Tab 5 MG PO MONWEDFRI PRIOR TO TORSEMIDE #30 Ref 0 TAB Ondansetron (Zofran) 4 Mg Tab 4 MG PO Q6HR PRN NAUSEA OR VOMITING Ref 0 TAB Pantoprazole (Protonix) 40 Mg Tab 40 MG PO DAILY Reflux #30 Ref 0 TAB Polyethylene Glycol 3350 Powder (Miralax Powder) 17 Gm Powd 17 GM PO DAILY Mix and dissolve one measuring cap-ful (17 grams) in water or juice. Constipation #1 Ref 0 CAN Prednisone (Prednisone) 10 Mg Tab 10 MG PO DAILY Ref 0 TAB Sennosides (Senna-Tabs) 8.6 Mg Tab 8.6 MG PO BID Constipation #30 Ref 0 TAB Torsemide (Demadex) 10 Mg Tab 10 MG PO DAILY #30 Ref 0 TAB Tramadol (Ultram) 50 Mg Tab 25 MG PO Q6H PRN PAIN Ref 0 TAB Audrey Bowser MD Mar 10, 2017 10:51
--- NOTE | 2017-03-10 11:20 | HHI.PR ---
Subjective Remarks Patient is in bed, she appears in nad. She had no complaints. She is not eating. Says she doesn't have any food and she is sleeping now. She is also telling me there is a black tube that I have to look up and figure about. Seen by psych. I discussed with Dr Manjit rodriguez , patient with psychosis, patient meets inpatient psych admission she will benefit from DC to psych. Objective Vitals Vital Signs Date Time Temp Pulse Resp B/P Pulse Ox O2 Delivery O2 Flow Rate FiO2 03/10/17 08:05 96.9 83 22 121/75 96 03/10/17 04:24 98.1 93 24 135/81 95 03/10/17 00:06 96.7 84 22 138/73 96 03/09/17 20:00 98.6 79 22 143/61 96 03/09/17 17:14 97.2 84 20 123/56 96 03/09/17 12:32 95.6 76 20 133/74 96 I/O 03/09/17 03/09/17 03/09/17 03/10/17 03/10/17 03/10/17 07:00 15:00 23:00 07:00 15:00 23:00 Intake Total 1857 ml 120 ml 928 ml Output Total 1 ml Balance 1857 ml 120 ml 928 ml -1 ml Intake Oral 1857 ml 120 ml IV Total 928 ml Output Urine Total 1 ml # Voids 2 2 1 # Bowel Movements 2 1 2 Result Diagram: 03/08/17 0850 03/08/17 0850 Imaging Last Impressions Lower Extremity Ultrasound 03/04/17 0000 Signed Impressions: Service Date/Time: Saturday, March 04, 2017 09:26 - CONCLUSION: No evidence of deep venous thrombosis within the lower extremities. Gunnar Ingram MD Head CT 03/04/17 0000 Signed Impressions: Service Date/Time: Saturday, March 04, 2017 03:04 - CONCLUSION: Unremarkable study. Chuckie Miranda MD Objective Remarks GENERAL: Elderly female, well-developed well-nourished, doesn't appear in acute distress. SKIN: Warm and dry. Venous stasis changes bilateral lower extremities HEENT: Normocephalic. Pupils equal and round. Mucous membranes very dry. CARDIOVASCULAR: Regular rate and rhythm. Systolic murmur appreciated. RESPIRATORY: No accessory muscle use. Clear to auscultation. Breath sounds equal bilaterally. GASTROINTESTINAL: Abdomen soft, non-tender, nondistended. Bowel sounds x4. MUSCULOSKELETAL: Lower extremity skin color changes bilaterally with trace edema , no warmth or weeping. No clubbing or cyanosis. NEUROLOGICAL: Awake and alert. Moves upper and lower extremities spontaneously. Normal speech. PSYCHIATRIC: Mostly pleasantly confused but occasional paranoid mood and affect ; insight and judgment limited. Procedures none A/P Problem List: (1) Altered mental status ICD Code: R41.82 Status: Acute (2) UTI (urinary tract infection) ICD Code: N39.0 Status: Acute Assessment and Plan 86-year-old female with history of anxiety, hypertension, hypothyroidism, presents here via EMS for confusion. Metabolic Encephalopathy: Suspect secondary to UTI and underlying dementia. Head CT reviewed, unremarkable. On antibiotics for UTI. Monitor neuro checks. Consulted PT, recommends C but needs supervision for safety. Patient reportedly recently on hospice however wants to revoke hospice, now patient refusing food/medications secondary to paranoia?. Psychiatry and palliative care consulted. Case management consulted for assistance with sleep discharge. Paranoia/Delirium: possibly exacerbated UTI, however per family report, this has been going on for a while. Patient intermittently refusing medications and food. Consulted psychiatry, discussed with Dr. Hoover, recommended Haldol 1mg PO /IM BID. Currently out of restraints. Suicidal ideation: Reconsult psychiatry Will do cognitive eval. Anorexia: Will do swallow eval. Patient refusing ensure. Start megace. Will ask dietary on consult. Will check prealbumin. UTI: UA with evidence of UTI. Urine culture with Escherichia coli sensitive to Macrobid. Received IV Rocephin 5 doses. Afebrile with no leukocytosis. Complete 7 day course of antibiotics with Macrobid. NIRAV: secondary to dehydration. Also possibly secondary to patient overusing diuretic antihypertensive medications. Cr 1.32. Given IVF, creatinine improved to <1. Continue IVF until patient tolerating oral intake. Continue to monitor. Hypokalemia/hyperkalemia: K 3.0->5.2 with replacement, DC'd. Now within normal limits. Elevated Troponin: patient initially denied any chest pain or angina equivalent. Troponin 0.08, 0.11, 0.12, 0.11. Suspect secondary to kidney disease. No further report of chest pain. DC telemetry. Bilateral Lower Extremity Edema: Exam appears consistent with chronic venous stasis changes, Doppler U/S negative for DVT. Elevation. Rigo hose. Hypertension: chronic, BP currently well controlled off of medications. Resumed Imdur. Hold diuretics with NIRAV as above. Monitor BP, adjust antihypertensives as needed. Hypothyroidism: Continue patient's levothyroxine. TSH elevated, T3 low. Suspect noncompliance with medications therefore will hold off on increasing synthroid at this time. Outpatient f/up with PCP. Anxiety: chronic, continue ativan prn. Chronic back pain: Continue home Lidoderm, Flexeril, prednisone. Caution with medications that could worsen delirium. Vitamin D deficiency: Started on vitamin D replacement. DVT Prophylaxis: teds/SCDs Discharge Planning The patient is medically clear for discharge pending safe discharge arrangements , will need placement/supervision for safety. Discussed with patient's daughter, who is agreeable. Patient is not eating, has dry tongue, she is also refusing meds. With suicidal ideation, consult psych. Palliative care discussed with the patient's family who are not amenable to hospice at this time. Case management consulted for assistance. Seen by psych. I discussed with Dr Manjit rodriguez , patient with psychosis, patient meets inpatient psych admission she will benefit from DC to psych. Discharge to psych/med . Discussed at length with the patient, nurse, Audrey Edmond MD Mar 10, 2017 11:20
[2017-03-10 12:20] VITALS: BP 132/58; PULSE 79; RESP 20; TEMP 96.9; O2SAT 99
[2017-03-10 16:20] VITALS: BP 122/56; PULSE 79; RESP 20; TEMP 96.6; O2SAT 97
--- NOTE | 2017-03-10 17:21 | HHI.HCPN ---
Reason for visit a. To assist with evaluation and management of symptoms including: confusion b. To assist medical decision maker(s) with: better understanding of current medical conditions; weighing benefits/burdens of medical treatment options; making medical treatment decisions. . Subjective/Interval History Ms. Mayers arrived at [facility] on 03/04/17 via EMS for evaluation because her caregiver stated she had not been acting normal. She was subsequently admitted for observation due to her altered mental status and evidence of UTI. The patient was started on Rocephin (receiving 5 doses). Urine culture with Escherichia coli sensitive to Macrobid. Rocephin with discontinued; started on a 7 day course of Macrobid but patient is refusing medication. Patient refusing medications and nutrition; Megace was ordered on 03/09/2017. Speech therapy was consulted for swallow evaluation and recommendations were made for a mechanically soft diet with thin liquids. Dietary was also consulted for a calorie count. HR: 79, respirations 20, BP 122/56, oxygen saturation 97% on room air, oral temperature 96.6 No new lab work is available. Psychiatry is following this patient with psychosis. Per notes, the patient's family reports the patient's paranoia and/or delirium has been ongoing. They verbalized understanding that the UTI may have exacerbated the patient's symptoms but again state the patient's symptoms did not develop acutely. Dr. Hoover (psychiatry) evaluated the patient on 03/05/17, recommended Haldol PO/IM 2 times daily. Yesterday on 03/09/2017, psychiatry was reconsulted for suicidal ideation and evaluated by Dr. Saravia. Patient meets psychiatric inpatient criteria and will be transferred to the psych/med unit. . Family/friend interactions Spoke to patient's daughter (Aleksandra) vis telephone. Update provided on patient' s clinical condition, discussed medical treatment goals, and possible transfer to psych/med unit. Family is amenable to transfer. . Objective Vital Signs Date Time Temp Pulse Resp B/P Pulse Ox O2 Delivery O2 Flow Rate FiO2 03/10/17 16:20 96.6 79 20 122/56 97 03/10/17 12:20 96.9 79 20 132/58 99 03/10/17 08:05 96.9 83 22 121/75 96 03/10/17 04:24 98.1 93 24 135/81 95 03/10/17 00:06 96.7 84 22 138/73 96 03/09/17 20:00 98.6 79 22 143/61 96 03/09/17 17:14 97.2 84 20 123/56 96 Intake & Output 03/10/17 03/10/17 07:00 19:00 Intake Total 229 ml 120 ml Output Total 1 ml Balance 228 ml 120 ml Intake Oral 120 ml IV Total 229 ml Output Urine Total 1 ml # Voids 1 2 # Bowel Movements 2 0 . Physical Exam CONSTITUTIONAL/GENERAL: This is an adequately nourished patient, elderly female patient in no acute distress. SKIN: No jaundice, rashes, or lesions. Ecchymoses on upper extremities. No wounds seen anteriorly. Skin temperature appropriate. Not diaphoretic. HEAD: Atraumatic. Normocephalic. EYES: Pupils equal and round and reactive. Extraocular motions intact. No scleral icterus. No injection or drainage. Fundi not examined. ENT: Hearing grossly normal. Nose without bleeding or purulent drainage. NECK: Trachea midline. CARDIOVASCULAR: Regular rate and rhythm. No JVD. Peripheral pulses symmetric. RESPIRATORY/CHEST: Symmetric, unlabored respirations. Breath sounds diminished bilaterally. No wheezes or rhonchi. GASTROINTESTINAL: Abdomen soft, nondistended, nontender. Active bowel sounds 4 quadrants. GENITOURINARY: Without palpable bladder distension. MUSCULOSKELETAL: Bilateral lower extremities with 1+ edema; color changes observed in bilateral lower extremities secondary to vascular disease. LYMPHATICS: No palpable cervical or supraclavicular adenopathy. NEUROLOGICAL: Confused. Able to answer some simple questions, follows simple commands intermittently. PSYCHIATRIC: Mildmoderate anxiety observed on exam. Verbalizing fear, stating she needs help because they are poisoning her. . Diagnostic Tests Laboratory Laboratory Tests Test 03/08/17 08:50 White Blood Count 4.7 TH/MM3 (4.0-11.0) Red Blood Count 4.51 MIL/MM3 (4.00-5.30) Hemoglobin 13.1 GM/DL (11.6-15.3) Hematocrit 39.7 % (35.0-46.0) Mean Corpuscular Volume 87.9 FL (80.0-100.0) Mean Corpuscular Hemoglobin 29.0 PG (27.0-34.0) Mean Corpuscular Hemoglobin 33.0 % Concent (32.0-36.0) Red Cell Distribution Width 21.7 % (11.6-17.2) Platelet Count 120 TH/MM3 (150-450) Mean Platelet Volume 8.4 FL (7.0-11.0) Neutrophils (%) (Auto) 65.8 % (16.0-70.0) Lymphocytes (%) (Auto) 23.3 % (9.0-44.0) Monocytes (%) (Auto) 8.4 % (0.0-8.0) Eosinophils (%) (Auto) 1.9 % (0.0-4.0) Basophils (%) (Auto) 0.6 % (0.0-2.0) Neutrophils # (Auto) 3.1 TH/MM3 (1.8-7.7) Lymphocytes # (Auto) 1.1 TH/MM3 (1.0-4.8) Monocytes # (Auto) 0.4 TH/MM3 (0-0.9) Eosinophils # (Auto) 0.1 TH/MM3 (0-0.4) Basophils # (Auto) 0.0 TH/MM3 (0-0.2) CBC Comment DIFF FINAL Differential Comment Sodium Level 139 MEQ/L (136-145) Potassium Level 4.6 MEQ/L (3.5-5.1) Chloride Level 109 MEQ/L (98-107) Carbon Dioxide Level 19.3 MEQ/L (21.0-32.0) Anion Gap 11 MEQ/L (5-15) Blood Urea Nitrogen 19 MG/DL (7-18) Creatinine 0.93 MG/DL (0.50-1.00) Estimat Glomerular Filtration 57 ML/MIN (>89) Rate Random Glucose 57 MG/DL (74-106) Calcium Level 8.5 MG/DL (8.5-10.1) Prealbumin 5 MG/DL (20-40) Result Diagram: 03/08/17 0850 03/08/17 0850 Assessment and Plan Disease Oriented Problem List: (1) UTI (urinary tract infection) (2) Altered mental status (3) Cirrhosis (4) Hepatitis C (5) Hypothyroid (6) CHF (congestive heart failure) (7) GERD (gastroesophageal reflux disease) Symptom Scale: (1) Confusion 0-10 Scale: Unable to quantify (unsure what pt baseline is at this point. ) Pertinent Non-Medical Issues Psychosocial: Spiritual: Legal: Ethical issues impacting care: Important Contacts Patricia Beltran (daughter) [phone] or [phone]. Aleksandra Padilla (daughter) [phone] Hilda (daughter) [phone] Liban phone number unknown ( per daughter patricia, he is the health care surrogate and is also an anesthesiologist). Prognosis 86 year old with hx of cirrohsis, (hepatitis C), CHF, hypothyrodism, and reccurent UTI. Although in terms of cirrhosis- on surface does not appear to meet hospice criteria ( INR of >1.5 and Serrum Albumin of <2.5) Pt's currently INR is 1.1 and Albumin is 2.5). Pt is confused, I do not see any documentation of Dementia thus far, but Her FAST score does not appear to be 7C or beyond. However there is a convergence of multiple issues, with none dominant that makes her condition destablizing. She continue to have cardiac issue, mainly with edema for which it has been very difficult to control despite multiple diurectis, where it has been weeping. She has fallen which required ER visit. Furthermore her hallucinations and mentation has progressed since 01/22 to which she worry someone poisoned her food. Her appetite fluctuates. This confusion has been going on for 1 month. Prognosis is poor if mentation, hallucination continue this trend of decline, and goals of care is comfort only. Code Status: No Code Plan ==Capacity- Poor insight, no capacity to make decisions. ==Code:-- She has a DNR, and family wish to continue to honor that. == Advanced directives: Son Liban has medical power of trust and estates attorney. Awaiting copy. == Goals of Care: Spoke with daughter Aleksandra, who indicates aggressive goals. Family would like SNF for rehab discharge. == Confusion/ hallucination/ paranoia- Psychiatry is following this patient with psychosis. Per notes, the patient's family reports the patient's paranoia and/or delirium has been ongoing. They verbalized understanding that the UTI may have exacerbated the patient's symptoms but again state the patient's symptoms did not develop acutely. Dr. Hoover (psychiatry) evaluated the patient on 03/05/17, recommended Haldol PO/IM 2 times daily. Yesterday on 03/09/2017, psychiatry was reconsulted for suicidal ideation and evaluated by Dr. Saravia. Patient meets psychiatric inpatient criteria and will be transferred to the psych/med unit. == Decreased appetite: Patient's nutritional intake remains poor; patient refusing to eat. ST was consulted for a swallow evaluation and recommendations were made for a mechanically soft diet with thin liquids. Dietary consult for calorie count. Started on Megace. == UTI: Urine culture with Escherichia coli sensitive to Macrobid. Rocephin with discontinued; started on a 7 day course of Macrobid but patient is refusing medication. == Discussed case with Dr. Bowser and case management, Lorrie. Family updated. == Palliative care will continue to follow patient throughout her hospitalization to establish trust, assist with symptom management and clarification of medical treatment goals. . Attestation To help prompt me to consider important information that might be impacting today's encounter and assessment, information from prior notes written by myself or my colleagues may have been "brought forward" into today's note. My signature on this note, however, is an attestation that I personally performed the exam, history, and/or decision-making noted today, and, unless otherwise indicated, the interactions with patient, family, and staff as well as the review of records all occurred today. I also attest that the listed assessment and stated plan reflect my best clinical judgment today based on the combination of historical information, prior notes, and today's exam/ interactions. When time spent is documented, it refers only to time spent today by the signer, or if indicated, combined time spent today by collaborating physician/nurse practitioner. . Suha Brantley Mar 10, 2017 17:21
[2017-03-10] MEDS: REMOVE OLD LIDOCAINE PATCH T-DERMAL SCH (21:00)
[2017-03-10 21:09] VITALS: BP 125/72; PULSE 84; RESP 18; TEMP 97.4; O2SAT 96
[2017-03-11 00:35] VITALS: BP 125/60; PULSE 81; RESP 18; TEMP 97.8; O2SAT 97
[2017-03-11 05:53] VITALS: BP 130/66; PULSE 85; RESP 20; TEMP 97; O2SAT 95
[2017-03-11] MEDS: LEVOTHYROXINE SODIUM 100 MCG TAB PO SCH (06:22)
[2017-03-11] MEDS: ISOSORBIDE MONONITRATE 20 MG TAB PO SCH (06:22)
[2017-03-11 08:00] VITALS: BP 142/71; PULSE 90; RESP 19; TEMP 96.4; O2SAT 95
[2017-03-11] MEDS: LIDOCAINE HCL 5% PATCH T-DERMAL SCH (09:00)
[2017-03-11] MEDS: SODIUM CHLORIDE 0.9% FLUSH 10 ML FLUSH IV FLUSH SCH (09:00)
[2017-03-11] MEDS: MEGESTROL ACETATE SUSP 400 MG/10 ML CUP PO SCH (09:04)
[2017-03-11] MEDS: predniSONE 5 MG TAB PO SCH (09:05)
[2017-03-11] MEDS: NITROFURANTOIN MONOHYD MACROCR 100 MG CAP PO SCH (09:05)
[2017-03-11] MEDS: DOCUSATE SODIUM 50 MG/SENNA 8.6 MG TAB PO SCH (09:05)
[2017-03-11] MEDS: HALOPERIDOL 1 MG TAB PO SCH (09:05)
[2017-03-11] MEDS: CHOLECALCIFEROL (VIT D3) 5000 UNIT CAP PO SCH (09:05)
[2017-03-11] MEDS: risperiDONE 0.25 MG TAB PO SCH (09:05)
[2017-03-11 12:00] VITALS: BP 116/80; PULSE 88; RESP 19; TEMP 96.9; O2SAT 98
--- NOTE | 2017-03-11 14:18 | HHI.HCPN ---
Reason for visit a. To assist with evaluation and management of symptoms including: confusion , decreased appetite b. To assist medical decision maker(s) with: better understanding of current medical conditions; weighing benefits/burdens of medical treatment options; making medical treatment decisions. . Subjective/Interval History Ms. Mayers arrived at [facility] on 03/04/17 via EMS for evaluation because her caregiver stated she had not been acting normal. She was subsequently admitted for observation due to her altered mental status and evidence of UTI. The patient was started on Rocephin (receiving 5 doses). Urine culture with Escherichia coli sensitive to Macrobid. Rocephin with discontinued; started on a 7 day course of Macrobid. Patient refusing food and will not drink ensure per nursing, Megace was started on 03/09/2017. Speech therapy was consulted for swallow evaluation and recommendations were made for a mechanically soft diet with thin liquids. Calorie count initiated on 03/09/2017 to determine PO intake, will assess results on 03/13/17. Dietary made recommendations to "liberalize diet", discontinue heart healthy restriction HR: 88, respirations 19, BP 116/80, oxygen saturation 90% on room air, oral temperature 96.9 Patient appears to be sleeping but arouses easily to verbal stimuli. She is calm, able to respond to some simple questions with brief answers. She continues to be confused stating people are poisoning her food. Per psychiatry , "patient continues to be very paranoid, guarded, was probably also having some visual hallucinations. She is partially oriented in time person and place. As per conversation with Dr. Bowser, patient's daughter is in a complete agreement with psychiatric admission for stabilization of the patient". Patient will be transferred to med psych unit today on an involuntary basis. Risperdal dose increased to 0.5 mg by mouth 2 times daily for acute psychosis. . Family/friend interactions Attempted to telephone call placed to patient daughter (Aleksandra) to provide a clinical update. She was unable to talk at that time, awaiting return phone call. . Objective Vital Signs Date Time Temp Pulse Resp B/P Pulse Ox O2 Delivery O2 Flow Rate FiO2 03/11/17 12:00 96.9 88 19 116/80 98 03/11/17 08:00 96.4 90 19 142/71 95 03/11/17 05:53 97.0 85 20 130/66 95 03/11/17 00:35 97.8 81 18 125/60 97 03/10/17 21:09 97.4 84 18 125/72 96 03/10/17 16:20 96.6 79 20 122/56 97 Intake & Output 03/11/17 03/11/17 07:00 19:00 Intake Total 748 ml Balance 748 ml Intake Oral 120 ml IV Total 628 ml # Voids 3 # Bowel Movements 0 . Physical Exam CONSTITUTIONAL/GENERAL: This is an adequately nourished patient, elderly female patient in no acute distress. SKIN: No jaundice, rashes, or lesions. Ecchymoses on upper extremities. . Skin temperature appropriate. Not diaphoretic. HEAD: Atraumatic. Normocephalic. EYES: Pupils equal and round and reactive. No injection or drainage. ENT: Hearing grossly normal. Nose without bleeding or purulent drainage. NECK: Trachea midline. CARDIOVASCULAR: Regular rate and rhythm. No JVD. Peripheral pulses symmetric. RESPIRATORY/CHEST: Symmetric, unlabored respirations. Breath sounds diminished bilaterally. GASTROINTESTINAL: Abdomen soft, nondistended, nontender. Active bowel sounds 4 quadrants. GENITOURINARY: Without palpable bladder distension. MUSCULOSKELETAL: Bilateral lower extremities with 1+ edema; color changes observed in bilateral lower extremities secondary to vascular disease. LYMPHATICS: No palpable cervical or supraclavicular adenopathy. NEUROLOGICAL: Confused. Able to answer some simple questions, follows simple commands intermittently. PSYCHIATRIC: Verbalizing fear, stating people are poisoning her food. . Diagnostic Tests Result Diagram: 03/08/17 0850 03/08/17 0850 Assessment and Plan Disease Oriented Problem List: (1) UTI (urinary tract infection) (2) Altered mental status (3) Cirrhosis (4) Hepatitis C (5) Hypothyroid (6) CHF (congestive heart failure) (7) GERD (gastroesophageal reflux disease) Symptom Scale: (1) Confusion 0-10 Scale: Unable to quantify (unsure what pt baseline is at this point. ) Pertinent Non-Medical Issues Psychosocial: Spiritual: Legal: Ethical issues impacting care: Important Contacts Patricia Beltran (daughter) [phone] or [phone]. Aleksandra Padilla (daughter) [phone] Hilda (daughter) [phone] Liban phone number unknown ( per daughter patricia, he is the health care surrogate and is also an anesthesiologist). Prognosis 86 year old with hx of cirrohsis, (hepatitis C), CHF, hypothyrodism, and reccurent UTI. Although in terms of cirrhosis- on surface does not appear to meet hospice criteria ( INR of >1.5 and Serrum Albumin of <2.5) Pt's currently INR is 1.1 and Albumin is 2.5). Pt is confused, I do not see any documentation of Dementia thus far, but Her FAST score does not appear to be 7C or beyond. However there is a convergence of multiple issues, with none dominant that makes her condition destablizing. She continue to have cardiac issue, mainly with edema for which it has been very difficult to control despite multiple diurectis, where it has been weeping. She has fallen which required ER visit. Furthermore her hallucinations and mentation has progressed since 01/22 to which she worry someone poisoned her food. Her appetite fluctuates. This confusion has been going on for 1 month. Prognosis is poor if mentation, hallucination continue this trend of decline, and goals of care is comfort only. Code Status: No Code Plan ==Capacity- Poor insight, no capacity to make decisions. ==Code:-- She has a DNR, and family wish to continue to honor that. == Advanced directives: Son Liban has medical power of city attorney. Awaiting copy. == Goals of Care: Spoke with daughter Aleksandra, who indicates aggressive goals. == Confusion/ hallucination/ paranoia- Psychiatry is following this patient with psychosis. Per notes, the patient's family reports the patient's paranoia and/or delirium has been ongoing. Patient transferred to med psych unit today on an involuntary basis. Risperdal dose increased to 0.5 mg PO 2 times daily. == Decreased appetite: Patient refusing food and will not drink ensure per nursing, Megace was started on 03/09/2017. Speech therapy was consulted for swallow evaluation and recommendations were made for a mechanically soft diet with thin liquids. Calorie count initiated on 03/09/2017 to determine PO intake, will assess results on 03/13/17. Dietary made recommendations to "liberalize diet", discontinue heart healthy restriction == Attempted to telephone call placed to patient daughter (Aleksandra) to provide a clinical update. She was unable to talk at that time, awaiting return phone call. == Discussed case with case management (Lorrie) and patient's nurse. == Palliative care will continue to follow patient throughout her hospitalization to establish trust, assist with symptom management and clarification of medical treatment goals. . Attestation To help prompt me to consider important information that might be impacting today's encounter and assessment, information from prior notes written by myself or my colleagues may have been "brought forward" into today's note. My signature on this note, however, is an attestation that I personally performed the exam, history, and/or decision-making noted today, and, unless otherwise indicated, the interactions with patient, family, and staff as well as the review of records all occurred today. I also attest that the listed assessment and stated plan reflect my best clinical judgment today based on the combination of historical information, prior notes, and today's exam/ interactions. When time spent is documented, it refers only to time spent today by the signer, or if indicated, combined time spent today by collaborating physician/nurse practitioner. . Suha Brantley Mar 11, 2017 14:18
--- NOTE | 2017-03-11 14:21 | HHI.PYPN ---
Subjective Remarks Patient was seen today for psychiatric reevaluation, patient was found eating her breakfast, she was calm, cooperative and pleasant. Patient says that "to black nurses"has been trying to come to the room to steal her money and poisoning her food. She describes her mood as very good, she denies suicidal or homicidal ideation, she denies visual and auditory hallucinations. However, patient continues to be very paranoid, guarded, was probably also having some visual hallucinations. She is partially oriented in time person and place. As per conversation with Dr. Bowser, patient's daughter is in a complete agreement with psychiatric admission for stabilization of the patient. Review of Systems Other No somatic complaint Objective Alert: Yes [place]: Person, Place, Date, Situation Mood: Calm Affect: Appropriate Memory Intact: Immediate, Remote Hallucinations: Other (no at the moment ) Delusions: Yes Delusion Type: Paranoid Suicidal: Ideation (NO SI) Homicidal: Ideation (no HI) Insight/Judgment poor Vitals/IOs Vital Signs Date Time Temp Pulse Resp B/P Pulse Ox O2 Delivery O2 Flow Rate FiO2 03/11/17 12:00 96.9 88 19 116/80 98 Intake and Output 03/10/17 03/10/17 03/11/17 08:00 16:00 00:00 Intake Total 120 ml Output Total 1 ml Balance -1 ml 120 ml Assessment & Plan Problem List: (1) Delirium due to another medical condition Assessment & Plan: We'll increase Risperdal to 0.5 mg twice a day for acute psychosis. ICD Code: F05 Assessment & Plan Estimated LOS: days Justification for Cont. Inpt. Patient will be transferred today to med psych unit in involuntary basis Ta Saravia MD Mar 11, 2017 14:21
[2017-03-11 15:30] VITALS: BP 143/67; PULSE 88; RESP 19; TEMP 96.7; O2SAT 98
[2017-03-11] MEDS ORDERED: ACETAMINOPHEN 325 MG TAB PO PRN (15:45)
[2017-03-11] MEDS ORDERED: LORazepam 0.5 MG TAB PO PRN (15:45)
[2017-03-11] MEDS ORDERED: LORazepam 2 MG/ML VIAL IM PRN ×2 (15:45)
[2017-03-11] MEDS ORDERED: MAGNESIUM HYDROXIDE SUSP 30 ML CUP PO PRN (15:45)
[2017-03-11] MEDS ORDERED: LORazepam 1 MG TAB PO PRN (15:45)
[2017-03-11] MEDS ORDERED: ALUMINUM/MAGNESIUM/SIMETH 30 ML CUP PO PRN (15:45)
[2017-03-11] MEDS ORDERED: risperiDONE 0.25 MG TAB PO SCH (21:00)
[2017-03-12] MEDS ORDERED: NICOTINE 21 MG/24 HR PATCH T-DERMAL SCH (09:00)
== END 2017-03-11 14:56 ==
LOC: NEPC 00:46 → NEDA 04:05 → NEPFCDU 06:02 → N05B 03-06 18:58
PROVIDERS: ADMIT Internal Medicine; ATTEND Internal Medicine
DX: N39.0 Urinary tract infection, site not specified (principal); B96.20 Unspecified Escherichia coli [E. coli] as the cause of diseases classified elsewhere; G93.41 Metabolic encephalopathy; N17.9 Acute kidney failure, unspecified; E86.0 Dehydration; F23 Brief psychotic disorder; R45.851 Suicidal ideations; E87.6 Hypokalemia; F03.90 Unspecified dementia, unspecified severity, without behavioral disturbance, psychotic disturbance, mood disturbance, and anxiety; R74.8 Abnormal levels of other serum enzymes; I11.0 Hypertensive heart disease with heart failure; I50.9 Heart failure, unspecified; R60.0 Localized edema; E03.9 Hypothyroidism, unspecified; F41.9 Anxiety disorder, unspecified; G89.29 Other chronic pain; M54.9 Dorsalgia, unspecified; E55.9 Vitamin D deficiency, unspecified; B19.20 Unspecified viral hepatitis C without hepatic coma; K74.60 Unspecified cirrhosis of liver; K21.9 Gastro-esophageal reflux disease without esophagitis; Z88.8 Allergy status to other drugs, medicaments and biological substances; Z88.1 Allergy status to other antibiotic agents; Z88.5 Allergy status to narcotic agent; Z88.0 Allergy status to penicillin; Z91.013 Allergy to seafood; Z66 Do not resuscitate; Z51.5 Encounter for palliative care
CPT/HCPCS: 70450; 76937; 80048; 80053; 81001; 82306; 82550; 82607; 83605; 83735; 84134; 84439; 84443; 84481; 84484; 85025; 85610; 85730; 87077; 87086; 87186; 92526; 92610; 93005; 93970; 96125; 96361; 96374; 97110; 97116; 97162; 97530; 99285; G0378; G8987; G8988; G8996; G8997; G8998; G9168; G9169; G9170; J0696; J1630; J2060; J3480; J7030; J7512; P9612

== ENCOUNTER 2017-03-11 11:23 | Inpatient (IN) | payer MEDICARE ==
[~2017-03-11 11:23] MED LIST changes: +ABIL2TAB2 PO; +BENA25CA4; +CHOL5000 PO; +CLAR10TA7; +CYCL1TAB29 PO; +CYCL5TAB PO; +DEMA10TA PO; +DULC10SU3 RECTAL; +HALO1TAB PO; +HALOPERIDOL TOPICAL; +ISOS10TA3 PO; +KETO2CRE TOPICAL; +KETOPROFEN TOPICAL; +LEVO100T5 PO; +LEVS0.124 SL; +LIDO2GEL11 TOPICAL; +LIDO5DIS5; +LORA-392 PO; +LORAZEPAM TOPICAL; +MEGE40SU PO; +METO5TAB3 PO; +MIRA3350 PO; +MUPI2%T TOPICAL; +NITR100C4 PO; +POTA10SO12 PO; +PRED10 PO; +PRED5TAB PO; +PROT40TA PO; +RISP.25 PO; +ROBIDM5S; +SENN8.6T36 PO; +SIME1CHW13 CHEW; +ULTR50TA5 PO; +VOLT1GEL4; +ZOFR4TAB PO
[2017-03-11] MEDS: NICOTINE 21 MG/24 HR PATCH T-DERMAL SCH (15:45)
[2017-03-11] MEDS ORDERED: LORazepam 2 MG/ML VIAL IM PRN ×2 (15:45)
[2017-03-11] MEDS ORDERED: LORazepam 0.5 MG TAB PO PRN (15:45)
[2017-03-11] MEDS ORDERED: LORazepam 1 MG TAB PO PRN (15:45)
[2017-03-11] MEDS ORDERED: ACETAMINOPHEN 325 MG TAB PO PRN (15:45)
[2017-03-11] MEDS ORDERED: ALUMINUM/MAGNESIUM/SIMETH 30 ML CUP PO PRN (15:45)
[2017-03-11] MEDS ORDERED: MAGNESIUM HYDROXIDE SUSP 30 ML CUP PO PRN (15:45)
[2017-03-11] MEDS ORDERED: LORazepam 2 MG/ML VIAL IV ONE (17:30)
[2017-03-11 18:03] VITALS: BP 125/73; PULSE 88; RESP 24; TEMP 97.2; O2SAT 98
[2017-03-11] MEDS ORDERED: CYCLOBENZAPRINE HCL 10 MG TAB PO PRN (19:30)
[2017-03-11] MEDS ORDERED: SIMETHICONE 125 MG CHEWABLE TAB CHEW PRN (19:30)
[2017-03-11 20:25] VITALS: BP 167/90; PULSE 85; O2SAT 98
[2017-03-11] MEDS: risperiDONE 0.5 MG TAB PO SCH (20:38)
[2017-03-11] MEDS: MUPIROCIN 2% CREAM 15 GM TOPICAL SCH (20:39)
[2017-03-12] MEDS ORDERED: RESP: ALBUTEROL 2.5 MG/IPRATROPIUM 0.5 MG NEB (SCH) NEB STA (06:05)
[2017-03-12 06:13] VITALS: BP 154/73; PULSE 93; TEMP 97.7; O2SAT 97
[2017-03-12] MEDS ORDERED: RESP: ALBUTEROL 2.5 MG/IPRATROPIUM 0.5 MG NEB (PRN) NEB (06:15)
--- NOTE | 2017-03-12 06:45 | RADRPT ---
EXAM DATE/TIME: 03/12/2017 06:07 [facility] COMPARISON: CHEST SINGLE AP, May 02, 2011, 20:00. INDICATIONS : Shortness of breath, possible pulmonary disease. MEDICAL HISTORY : None. SURGICAL HISTORY : None. ENCOUNTER: Initial ACUITY: 1 day PAIN SCORE: 0/10 LOCATION: Bilateral chest FINDINGS: Consolidation and small effusions seen of both lung bases. No pneumothorax. Heart size stable, upper limits of normal. Thoracic aorta is tortuous. CONCLUSION: Mild bibasilar consolidation and small effusions. Alexi Sweeney MD on March 12, 2017 at 6:43 Board Certified Radiologist. This report was verified electronically.
[2017-03-12 06:52] LABS: BLOOD GAS BASE EXCESS -6.6 mmol/L (-2-2); BLOOD GAS CARBOXYHEMOGLOBIN 1.7 % (0-4); BLOOD GAS HCO3 18 mmol/L (22-26); BLOOD GAS METHEMOGLOBIN 0.9 % (0-2); BLOOD GAS O2 HGB SATURATION 95 % (90-100); BLOOD GAS OXYGEN CONTENT 16.9 Vol % (12.0-20.0); BLOOD GAS PCO2 31 mmHg (38-42); BLOOD GAS PO2 95 mmHg (61-120); BLOOD GAS TOTAL HGB 12.6 G/DL (12.0-16.0); CRITICAL VALUE NO; DRAW SITE RT RADIAL; LITER FLOW 2 L/M; NUMBER OF ARTERIAL PUNCTURES 1; OXYGEN DEVICE NASAL CANNULA; STAT YES; TEMP CORR TO 98.6; ULNAR PULSE PRESENT
[2017-03-12 08:48] LABS: AUTOMATED NEUTROPHIL # 3.9 TH/MM3 (1.8-7.7); BASOPHIL % 0.5 % (0.0-2.0); EOSINOPHIL # 0.1 TH/MM3 (0-0.4); EOSINOPHIL % 1.3 % (0.0-4.0); HEMATOCRIT 38.1 % (35.0-46.0); HEMO FLAGS DIFF FINAL; LYMPH % 22.2 % (9.0-44.0); LYMPHOCYTE # 1.3 TH/MM3 (1.0-4.8); MEAN CELL VOLUME 87.7 FL (80.0-100.0); MEAN CORPUSCULAR HEMOGLOBIN 28.7 PG (27.0-34.0); MEAN CORPUSCULAR HGB CONC 32.7 % (32.0-36.0); MONO % 7.2 % (0.0-8.0); NEUT % 68.8 % (16.0-70.0); PLATELET COUNT 139 TH/MM3 (150-450); RED BLOOD COUNT 4.35 MIL/MM3 (4.00-5.30); RED CELL DISTRIBUTION WIDTH 22.4 % (11.6-17.2); WHITE BLOOD COUNT 5.7 TH/MM3 (4.0-11.0)
[2017-03-12] MEDS ORDERED: NITROFURANTOIN MONOHYD MACROCR 100 MG CAP PO SCH (09:00)
[2017-03-12] MEDS: NICOTINE 21 MG/24 HR PATCH T-DERMAL SCH (09:00)
[2017-03-12] MEDS: MUPIROCIN 2% CREAM 15 GM TOPICAL SCH ×2 (09:00→21:00)
[2017-03-12] MEDS: risperiDONE 0.5 MG TAB PO SCH ×2 (09:00→20:58)
[2017-03-12 09:08] LABS: BICARBONATE 18.9 MEQ/L (21.0-32.0); POTASSIUM 4.3 MEQ/L (3.5-5.1)
[2017-03-12] MEDS: MEGESTROL ACETATE SUSP 400 MG/10 ML CUP PO SCH (09:16)
[2017-03-12] MEDS: ISOSORBIDE MONONITRATE 20 MG TAB PO SCH (09:16)
[2017-03-12] MEDS: predniSONE 5 MG TAB PO SCH (09:16)
[2017-03-12 11:12] LABS: HDL CHOLESTEROL 23.1 MG/DL (40.0-60.0); LDL CHOLESTEROL 100 MG/DL (0-99)
--- NOTE | 2017-03-12 13:49 | HHI.HP ---
Provisional Diagnosis Admission Date Mar 11, 2017 at 15:05 [place]. Unspecified psychosis vs delirium due to underlying medical conditions Certification of Person's Competence To Provide Express and Informed Consent I have personally examined Mercedes Mayers , a person being served at [facility] on, Mar 12, 2017 13:46. Express and informed consent means consent voluntarily given in writing, by a competent person, after sufficient explanation and disclosure of the subject matter involved to enable the person to make a knowing and willful decision without any element of force, fraud, deceit, duress, or other form of constraint or coercion. This person is 18 years of age or older, is not now known to be incompetent to consent to treatment with a guardian advocate, and does not have a health care surrogate or proxy currently making medical treatment decisions. I have found this person to be one of the following: [] Competent to provide express and informed consent, as defined above, for voluntary admission to this facility and is competent to provide express and informed consent for treatment. He/she has the consistent capacity to make well reasoned, willful, and knowing decisions concerning his or her medical or mental health treatment. The person fully and consistently understands the purpose of the admission for examination/placement and is fully capable of personally exercising all rights assured [place] [X] Incompetent to provide express and informed consent to voluntary admission, and this is incompetent to provide express and informed consent to treatment. The person must be transferred to involuntary status and a petition for a guardian advocate filed with the Circuit Court. [] Refusing to provide express and informed consent to voluntary admission but is competent to provide express and informed consent for treatment. The person must be discharged or transferred to involuntary status. Form shall be completed within 24 hours of a person's arrival at the receiving facility and filed in the clinical record of each person: 1. Admitted on a voluntary basis 2. Permitted to provide express and informed consent to his/her own treatment 3. Allowed to transfer from involuntary to voluntary status 4. Prior to permitting a person to consent to his or her own treatment after having been previously found incompetent to consent to treatment. History of Present Illness Capacity: Lacks Capacity [facility] This is an 86-year-old female who is experiencing a urinary tract infection, being treated for it with antibiotics, and exhibiting psychotic delusional behavior. Patient feels she is being poisoned by hospital staff and by caretakers and by family members. Patient is obviously confused and is disoriented to time, place and situation. She is only oriented to person. According to some family members, the patient was not herself even before the diagnosis of a urinary tract infection. However, this physician feels even a insidious urinary tract infection could cause altered mental status and paranoia. Additionally, the patient has some likelihood for experiencing an underlying dementia process, even though it may only be mild. As a result, she might be more susceptible to infections and develops this delirium process. In any event, when paranoid she refuses treatment and she is oppositional and uncooperative. 03/09/2017 Patient seen for psychiatric reevaluation, she was calm, cooperative and pleasant, reports good mood and states she would like to go home as soon as possible. She reports good sleep, denies hopelessness, helplessness, denies SI/ HI/VH/AH. She is future oriented and is able to verbalize protective factor for suicidality. She is fully oriented times 3, with good attention spam, appropriate language and speech, naming, repetition, abstract thinking, but impaired recent memory and executive function. Full cognitive test was not possible due to patient reluctancy. As she was asked if felt safe in the hospital she became paranoid and stated that the are two man manipulation her food and her medications. She says she does nto trust people and is better if she does not eat anything. Patient had an episode of agitation last night in which she allegedly verbalized SI 03/11/2017 Patient was seen today for psychiatric reevaluation, patient was found eating her breakfast, she was calm, cooperative and pleasant. Patient says that "to black nurses"has been trying to come to the room to steal her money and poisoning her food. She describes her mood as very good, she denies suicidal or homicidal ideation, she denies visual and auditory hallucinations. However, patient continues to be very paranoid, guarded, was probably also having some visual hallucinations. She is partially oriented in time person and place. As per conversation with Dr. Bowser, patient's daughter is in a complete agreement with psychiatric admission for stabilization of the patient. 03/12/2017 patient seen today for psychiatric reevaluation, patient is sedated, last night was combative, agitated, unable to be redirected verbally, had to be medicated with Ativan 2 mg. At the moment of this evaluation the patient is non -cooperative. I had a conversation this morning with his son, who is a physician, he agrees with psychotropic and psychiatric care, he also confirms psychotic behavior of the patient. He would like to be involved in the discharge plan of the patient. Review of Systems ROS Limitations: Unresponsive, Uncooperative Substance Abuse History Drugs/Alcohol past 12 months Denies history of substance abuse Past Family Social History Coded Allergies: Augmentin (Verified Allergy, Severe, 03/04/17) Beta Blockers (Verified Allergy, Severe, 03/04/17) Flagyl (Verified Allergy, Severe, 03/04/17) Levaquin (Verified Allergy, Severe, 03/04/17) Morphine (Verified Allergy, Severe, 03/04/17) Seafood (Verified Allergy, Severe, 03/04/17) Lasix (Verified Allergy, Intermediate, 03/04/17) Amoxicillin (Verified Allergy, Unknown, 03/04/17) Spironolactone (Verified Allergy, Unknown, 03/04/17) Active Scripts Risperidone (Risperdal)0.25 Mg Tab0.25 Mg PO Q12HR #30 TAB Prov:Audrey Bowser MD 03/10/17 Megestrol Liq 40 Mg/Ml [id number] Mg PO DAILY #120 BOTTLE Prov:Audrey Bowser MD 03/10/17 Haloperidol 1 Mg Tab1 Mg PO BID #30 TAB Prov:Audrey Bowser MD 03/10/17 Cyclobenzaprine (Flexeril)10 Mg Tab5 Mg PO Q8H PRN (MUSCLE SPASM) #10 TAB Prov:Audrey Bowser MD 03/10/17 Aripiprazole (Abilify)2 Mg Tab1 Mg PO DAILY PRN (paranoia) #15 TAB Prov:Teto Wang 03/06/17 Cholecalciferol (Vitamin D3)5,000 Unit Cap5,000 Units PO DAILY #30 CAP Prov:Teto Wang 03/06/17 Nitrofurantoin Monohydrate Macrocrystals 100 Mg Xal165 Mg PO BIDPC #10 CAP Prov:Teto Wang 03/06/17 Prednisone 5 Mg Tab5 Mg PO DAILY #30 TAB Prov:Teto Wang 03/06/17 Cyclobenzaprine (Flexeril)5 Mg Tab5 Mg PO TID PRN (Muscle Spasm) #90 TAB Ref 0 Prov:Teto Wang PA 03/06/17 Reported Medications Simethicone 125 Mg [id number] Mg CHEW QID PRN (GAS RETENTION) Ref 0 03/04/17 Mupirocin Topical (Bactroban Topical)22 Gm Cream1 Applic TOPICAL BID #1 TUBE Ref 0 03/04/17 Potassium Chloride Liq 20 Meq/15 Ml Soln20 Meq PO TID Ref 0 03/04/17 Lidocaine (Lidoderm)5 % Adh..patch 03/04/17 [Haloperidol Gel] No Conflict Check1 Ml TOPICAL Q4HR 03/04/17 [Lorazepam Gel] No Conflict Check1 Ml TOPICAL Q4HR 03/04/17 Isosorbide Mononitrate 10 Mg Tab10 Mg PO DAILY #60 TAB Take 2 doses 7 hours apart. 03/04/17 Lorazepam (Ativan)0.5 Mg Tab0.5 Mg PO Q4H PRN (For mild anxiety / dyspnea) Ref 0 03/04/17 Nitroglycerin SL (Nitrostat SL)0.4 Mg Subl0.4 Mg SL DIRECTED PRN (CHEST PAIN ) #100 TAB.SL Ref 0 1 tablet under the tongue as needed for chest pain. Repeat every 5 minutes for a total of 3 DOSES or call 911 if NO relief. 03/04/17 Levothyroxine 100 Mcg [id number] Mcg PO DAILY #30 TAB Ref 0 03/04/17 [Ketoprofen Gel] No Conflict Check5 % Topical Tid 03/04/17 Bisacodyl Supp (Dulcolax Supp)10 Mg Supp10 Mg RECTAL DAILY PRN (CONSTIPATION) # 12 SUPP Ref 0 03/04/17 Albuterol 6.7 GM Inh (Proventil Hfa 6.7 GM Inh)90 Mcg/Act Aer2 Puff INH Q4-6H PRN (SHORTNESS OF BREATH) #1 INHALER Ref 0 03/04/17 Lidocaine Topical 2 % Jel1 Applic TOPICAL QID Ref 0 03/04/17 Discontinued Reported Medications Cyclobenzaprine (Flexeril)5 Mg Tab5 Mg PO TID #90 TAB Ref 0 03/04/17 Hyoscyamine Odt (Levsin-SL)0.125 Mg Subl0.125 Mg SL Q4H Ref 0 03/04/17 Torsemide (Demadex)10 Mg Tab10 Mg PO DAILY #30 TAB Ref 0 03/04/17 Sennosides (Senna-Tabs)8.6 Mg Tab8.6 Mg PO BID #30 TAB Ref 0 03/04/17 Polyethylene Glycol 3350 Powder (Miralax Powder)17 Gm Powd17 Gm PO DAILY #1 CAN Ref 0 Mix and dissolve one measuring cap-ful (17 grams) in water or juice. 03/04/17 Diclofenac Sodium (Voltaren)100 Gm Gel..gram. 03/04/17 Metolazone 5 Mg Tab5 Mg PO MONWEDFRI #30 TAB Ref 0 03/04/17 Prednisone 10 Mg Tab10 Mg PO DAILY Ref 0 03/04/17 Diphenhydramine HCl (Benadryl Allergy)25 Mg Cap 03/04/17 Pantoprazole (Protonix)40 Mg Tab40 Mg PO DAILY #30 TAB Ref 0 03/04/17 Ondansetron (Zofran)4 Mg Tab4 Mg PO Q6HR PRN (NAUSEA OR VOMITING) Ref 0 03/04/17 Tramadol (Ultram)50 Mg Tab25 Mg PO Q6H PRN (PAIN) Ref 0 03/04/17 Loratadine (Claritin)10 Mg Tablet 03/04/17 Guaifenesin/Dextromethorphan Liq (Guaifenesin-Dm Liq)100-10 Mg/5 Ml Syrp 03/04/17 Ketoconazole Topical 2% Cream1 Applic TOPICAL DAILY #15 GM Ref 0 03/04/17 Current Medications Medications (Trade) Dose Ordered Sig/Anupama Route Start Time Stop Time Status Last Admin (Ativan) 1 mg Q6H PRN PO 03/11/17 15:45 (Ativan Inj) 1 mg Q6H PRN IM 03/11/17 15:45 (Ativan) 0.5 mg Q12H PRN PO 03/11/17 15:45 (Ativan Inj) 0.5 mg Q12H PRN IM 03/11/17 15:45 (Tylenol) 650 mg Q4H PRN PO 03/11/17 15:45 (Milk Of Magnesia Liq) 30 ml DAILY PRN PO 03/11/17 15:45 (Mag-Al Plus Susp Liq) 30 ml Q6H PRN PO 03/11/17 15:45 (Habitrol 21 Mg Patch.24 Hr) 1 patch DAILY T-DERMAL 03/11/17 15:45 (risperDAL) 0.5 mg BID PO 03/11/17 21:00 (Flexeril) 5 mg Q8H PRN PO 03/11/17 19:30 (Ismo) 10 mg DAILY PO 03/12/17 09:00 03/12/17 09:16 (Megace Liq) 400 mg DAILY PO 03/12/17 09:00 03/12/17 09:16 (Bactroban 2% Cream) 1 applic BID TOPICAL 03/11/17 21:00 (Deltasone) 5 mg DAILY PO 03/12/17 09:00 03/12/17 09:16 (Phazyme Chew) 125 mg QID PRN CHEW 03/11/17 19:30 Physical Exam Vital Signs Vital Signs Date Time Temp Pulse Resp B/P Pulse Ox O2 Delivery O2 Flow Rate FiO2 03/12/17 07:36 97 Nasal Cannula 2.00 03/12/17 06:13 97.7 93 154/73 03/11/17 18:03 24 Mental Status Examination Mental status limited due to lack of cooperation, patient is currently sedated, non-cooperative Previous Suicide Attempts: No Previous Homicide Attempts: No Assessment & Plan Problem List: (1) Psychoses Assessment & Plan: Patient has been psychotic, with delusion of being controlled by 2 men, paranoid toward nurses, agitated frequently, with disorganized and aggressive behavior at night, she needs to continue psychiatric hospitalization for stabilization, continue current psychotropics. lithopone mill worker intervention for psychosocial assessment, collateral information, discharge planning. ICD Code: F29 Assessment & Plan Estimated LOS: Ta Waddell MD Mar 12, 2017 13:49
[2017-03-12] MEDS ORDERED: SODIUM CHLORID 0.9% 500 ML INJ 500 ML IV SCH (14:15)
[2017-03-12] MEDS ORDERED: methylPREDNISolone SOD SUCC 125 MG/2 ML VIAL IV PUSH SCH (15:00)
--- NOTE | 2017-03-12 15:02 | PD.CONS ---
[facility] By [facility]iatry team Reason for Consult Medical management Primary Care Physician No Primary Care Physician Diagnoses: History of Present Illness Written by Christine Luong, acting as scribe for Dr. Montero on 03/12/17 at 14: 26. Patient is an 86 year old female with primary medical history of HTN, hypothyroidism, hepatitis C, cirrhosis, recurrent UTI, anxiety, depression who came into the hospital brought in by family secondary to increased confusion delirium. Patient was previously on hospice care. She is found to have urinary tract infection and started on Macrobid. She was seen by palliative care as an inpatient and spoke with the family. According to palliative care note, patient family is not ready to take patient to the care center and thinks that the patient is overmedicated. Patient is now transferred to inpatient medical psychiatric unit for further evaluation of confusion, hallucination and paranoia. Consulted for continuous medical management. Patient seen and examined today. As per nursing staff, patient was given 1 mg of Ativan and she is now sleeping/ lethargic. Patient is unable to eat or swallow medications for now. As per psychiatry to have decreased the dose of Ativan to be given to the patient. Patient is lethargic and unable to respond to any questions and commands. When patient is stimulated she moans "oh, oh." Otherwise she is unable to answer any questions. Review of Systems ROS Limitations: Clinical Condition, Altered Mental Status Past Family Social History Allergies: Coded Allergies: Augmentin (Verified Allergy, Severe, 03/04/17) Beta Blockers (Verified Allergy, Severe, 03/04/17) Flagyl (Verified Allergy, Severe, 03/04/17) Levaquin (Verified Allergy, Severe, 03/04/17) Morphine (Verified Allergy, Severe, 03/04/17) Seafood (Verified Allergy, Severe, 03/04/17) Lasix (Verified Allergy, Intermediate, 03/04/17) Amoxicillin (Verified Allergy, Unknown, 03/04/17) Spironolactone (Verified Allergy, Unknown, 03/04/17) Past Medical History Reviewed from EMR Anxiety Depression Hypertension Hypothyroidism Hepatitis C Recurrent UTI Cyanosis Questionable dementia Past Surgical History Unable to obtain Reported Medications Reported Meds & Active Scripts Active Risperdal (Risperidone) 0.25 Mg Tab 0.25 Mg PO Q12HR Megestrol Liq (Megestrol Acetate) 40 Mg/Ml Susp 400 Mg PO DAILY Haloperidol 1 Mg Tab 1 Mg PO BID Flexeril (Cyclobenzaprine HCl) 10 Mg Tab 5 Mg PO Q8H PRN Abilify (Aripiprazole) 2 Mg Tab 1 Mg PO DAILY PRN Vitamin D3 (Cholecalciferol) 5,000 Unit Cap 5,000 Units PO DAILY Nitrofurantoin Monohydrate Macrocrystals (Nitrofurantoin Monoh/Nitrofur Macro) 100 Mg Cap 100 Mg PO BIDPC Prednisone 5 Mg Tab 5 Mg PO DAILY Flexeril (Cyclobenzaprine HCl) 5 Mg Tab 5 Mg PO TID PRN Reported Simethicone 125 Mg Chw 125 Mg CHEW QID PRN Bactroban Topical (Mupirocin) 22 Gm Cream 1 Applic TOPICAL BID Potassium Chloride Liq (Potassium Chloride) 20 Meq/15 Ml Soln 20 Meq PO TID Lidoderm (Lidocaine) 5 % Adh..patch [Haloperidol Gel] 1 Ml TOPICAL Q4HR [Lorazepam Gel] 1 Ml TOPICAL Q4HR Isosorbide Mononitrate 10 Mg Tab 10 Mg PO DAILY Take 2 doses 7 hours apart. Ativan (Lorazepam) 0.5 Mg Tab 0.5 Mg PO Q4H PRN Nitrostat SL (Nitroglycerin) 0.4 Mg Subl 0.4 Mg SL DIRECTED PRN 1 tablet under the tongue as needed for chest pain. Repeat every 5 minutes for a total of 3 DOSES or call 911 if NO relief. Levothyroxine (Levothyroxine Sodium) 100 Mcg Tab 100 Mcg PO DAILY [Ketoprofen Gel] 5 % TOPICAL TID Dulcolax Supp (Bisacodyl) 10 Mg Supp 10 Mg RECTAL DAILY PRN Proventil Hfa 6.7 GM Inh (Albuterol Sulfate) 90 Mcg/Act Aer 2 Puff INH Q4-6H PRN Lidocaine Topical (Lidocaine HCl) 2 % Jel 1 Applic TOPICAL QID Active Ordered Medications Current Medications Medications (Trade) Dose Ordered Sig/Anupama Route Start Time Stop Time Status Last Admin (Ativan) 1 mg Q6H PRN PO 03/11/17 15:45 (Ativan Inj) 1 mg Q6H PRN IM 03/11/17 15:45 (Ativan) 0.5 mg Q12H PRN PO 03/11/17 15:45 (Ativan Inj) 0.5 mg Q12H PRN IM 03/11/17 15:45 (Tylenol) 650 mg Q4H PRN PO 03/11/17 15:45 (Milk Of Magnesia Liq) 30 ml DAILY PRN PO 03/11/17 15:45 (Mag-Al Plus Susp Liq) 30 ml Q6H PRN PO 03/11/17 15:45 (Habitrol 21 Mg Patch.24 Hr) 1 patch DAILY T-DERMAL 03/11/17 15:45 (risperDAL) 0.5 mg BID PO 03/11/17 21:00 (Flexeril) 5 mg Q8H PRN PO 03/11/17 19:30 (Ismo) 10 mg DAILY PO 03/12/17 09:00 03/12/17 09:16 (Megace Liq) 400 mg DAILY PO 03/12/17 09:00 03/12/17 09:16 (Bactroban 2% Cream) 1 applic BID TOPICAL 03/11/17 21:00 (Deltasone) 5 mg DAILY PO 03/12/17 09:00 03/12/17 09:16 (Phazyme Chew) 125 mg QID PRN CHEW 03/11/17 19:30 Family History Unable to obtain Social History Unable to obtain Physical Exam Vital Signs Vital Signs Date Time Temp Pulse Resp B/P Pulse Ox O2 Delivery O2 Flow Rate FiO2 03/12/17 07:36 97 Nasal Cannula 2.00 03/12/17 06:43 Nasal Cannula 2.00 03/12/17 06:13 97.7 93 154/73 97 03/11/17 20:25 85 167/90 98 03/11/17 20:00 98 Room Air 03/11/17 18:03 97.2 88 24 125/73 98 03/11/17 16:43 94 Nasal Cannula 2.00 Physical Exam GENERAL: This is a well-nourished, well-developed patient, lethargic. SKIN: Bilateral lower extremities appears to have stasis. Warm and dry. HEAD: Atraumatic. Normocephalic. EYES: Pupils equal round and reactive. Extraocular motions intact. No scleral icterus. No injection or drainage. ENT: Nose without bleeding. Throat without erythema. Uvula midline. Airway patent. NECK: Trachea midline. No JVD or lymphadenopathy. CARDIOVASCULAR: Regular rate and rhythm without murmurs, gallops, or rubs. RESPIRATORY: Expiratory wheeze. Rhonchi. On 2 L nasal cannula. GASTROINTESTINAL: Abdomen soft, non-tender, nondistended. Bowel sounds hypoactive. MUSCULOSKELETAL: Extremities without clubbing, cyanosis, bilateral lower extremity +2 edema. NEUROLOGICAL: Motor and sensory grossly within normal limits. Laboratory Laboratory Tests Test 03/12/17 03/12/17 06:40 08:07 Blood Gas Puncture Site RT RADIAL Blood Gas Patient Temperature 98.6 Blood Gas HCO3 18 Blood Gas Base Excess -6.6 Blood Gas Oxygen Saturation 95 Arterial Blood pH 7.37 Arterial Blood Partial 31 Pressure CO2 Arterial Blood Partial 95 Pressure O2 Arterial Blood Oxygen Content 16.9 Arterial Blood 1.7 Carboxyhemoglobin Arterial Blood Methemoglobin 0.9 Blood Gas Hemoglobin 12.6 Oxygen Delivery Device NASAL CANNULA Blood Gas Liter Flow 2 White Blood Count 5.7 Red Blood Count 4.35 Hemoglobin 12.5 Hematocrit 38.1 Mean Corpuscular Volume 87.7 Mean Corpuscular Hemoglobin 28.7 Mean Corpuscular Hemoglobin 32.7 Concent Red Cell Distribution Width 22.4 Platelet Count 139 Mean Platelet Volume 8.3 Neutrophils (%) (Auto) 68.8 Lymphocytes (%) (Auto) 22.2 Monocytes (%) (Auto) 7.2 Eosinophils (%) (Auto) 1.3 Basophils (%) (Auto) 0.5 Neutrophils # (Auto) 3.9 Lymphocytes # (Auto) 1.3 Monocytes # (Auto) 0.4 Eosinophils # (Auto) 0.1 Basophils # (Auto) 0.0 CBC Comment DIFF FINAL Differential Comment Sodium Level 142 Potassium Level 4.3 Chloride Level 113 Carbon Dioxide Level 18.9 Anion Gap 10 Blood Urea Nitrogen 23 Creatinine 0.88 Estimat Glomerular Filtration 61 Rate Random Glucose 70 Calcium Level 8.5 B-Type Natriuretic Peptide 529 Triglycerides Level 93 Cholesterol Level 142 LDL Cholesterol 100 HDL Cholesterol 23.1 Cholesterol/HDL Ratio 6.14 Result Diagram: 03/12/17 0807 03/12/17 0807 Imaging Last Impressions Chest X-Ray 03/12/17 0000 Signed Impressions: Service Date/Time: February 06:07 - CONCLUSION: Mild bibasilar consolidation and small effusions. Alexi Sweeney MD Assessment and Plan Problem List: (1) Hypothyroid ICD Code: E03.9 Status: Acute (2) UTI (urinary tract infection) ICD Code: N39.0 Status: Acute (3) GERD (gastroesophageal reflux disease) ICD Code: K21.9 Status: Chronic (4) CHF (congestive heart failure) ICD Code: I50.9 Status: Acute (5) Hepatitis C ICD Code: B19.20 Status: Chronic Assessment and Plan Patient is an 86 year old female with primary medical history of HTN, hypothyroidism, hepatitis C, cirrhosis, recurrent UTI, anxiety, depression who came into the hospital brought in by family secondary to increased confusion delirium. Patient was previously on hospice care. Treated for urinary tract infection. She is now admitted to inpatient medical psychiatry unit. Consulted for medical management. Metabolic Encephalopathy Paranoia Delirium - CT head showed unremarkable study - Possibly related to urinary tract infection and underlying dementia - Psychiatry team to manage paranoia and delirium, questionable dementia - Seen previously by palliative care team. Patient's family not ready for patient to in the care center. Awaiting for placement to SNF. - Patient was given Ativan 1 mg today. Decreased the dose to 0.5 mg. Hold for increase sedation - Patient unable to eat and take her medication. We'll start IV fluids for gentle hydration. - Check BMP tomorrow Urinary tract infection - Previously treated on Rocephin 5 doses, started on Macrobid. - Urine culture with Escherichia coli - Will DC Macrobid for now. Switch over to cefepime to cover pneumonia HCAP, pneumonia - Chest x-ray showed mild bibasilar consolidation and small effusions - Patient expiratory wheezes on exam, on 2 L nasal cannula. Occasional diaphragmatic breathing noted. - Start cefepime IV - Solu-Medrol IV 60 mg 1 dose. Patient is on prednisone 5 mg daily. - DuoNeb scheduled, DuoNeb's when necessary - O2 nasal cannula keep O2 sat greater than 90% - Monitor respiratory status Bilateral Lower Extremity Edema - Exam appears consistent with chronic venous stasis changes, - Doppler U/S negative for DVT. Elevation. CHF, systolic Hypertension, chronic - Continue Imdur. Hold diuretics Hx of NIRAV during inpatient admission. BNP 529 - Monitor BP Hypothyroidism - Continue patient's levothyroxine 100mcg - TSH elevated, T3 low. Suspect noncompliance with medications or stress hospitalization related therefore will hold off on increasing synthroid at this time - Outpatient f/up with PCP. Chronic back pain - Continue home Lidoderm, Flexeril, prednisone. - Caution with medications that could worsen delirium or increase sedation Vitamin D deficiency - vitamin D replacement. DVT Prophylaxis: teds/SCDs This note was transcribed by [email or web address] [Christine Luong]. I, Dr. Jericho Montero personally performed the history, physical exam, and medical decision making; and confirmed the accuracy of the information in the transcribed note. Authenticated by Dr. Jericho Montero on 03/12/17 at 1430. Thank you for this consultation. We will follow patient with you. Discussed Condition With Patient, nursing Christine Billings Mar 12, 2017 15:02 Jericho Montero MD Mar 12, 2017 16:03
[2017-03-12] MEDS: CEFEPIME INJ 1,000 MG in SODIUM CHLORIDE 0.9% INJ 100 ML IV SCH (16:00)
[2017-03-12 16:12] LABS: HEMOGLOBIN A1a 0.9 %; HEMOGLOBIN A1b 1.7 %; HEMOGLOBIN Ao 87.4 %; HEMOGLOBIN LA1C 1.6 %; HEMOGLOBIN P3 3.6 %
[2017-03-12] MEDS: RESP: ALBUTEROL 2.5 MG/IPRATROPIUM 0.5 MG NEB (SCH) NEB ×2 (16:35→22:54)
[2017-03-12 17:27] VITALS: BP 148/112; PULSE 126; RESP 16; TEMP 97.8; O2SAT 95
[2017-03-12] MEDS ORDERED: HALOPERIDOL LACTATE 5 MG/ML AMP IM PRN (18:00)
[2017-03-13 00:20] VITALS: BP 138/83; PULSE 88; O2SAT 97
[2017-03-13] MEDS: CEFEPIME INJ 1,000 MG in SODIUM CHLORIDE 0.9% INJ 100 ML IV SCH (04:00)
[2017-03-13] MEDS: RESP: ALBUTEROL 2.5 MG/IPRATROPIUM 0.5 MG NEB (SCH) NEB ×2 (04:30→09:12)
[2017-03-13 05:34] VITALS: BP 152/72; PULSE 97; O2SAT 94
[2017-03-13] MEDS ORDERED: LEVOTHYROXINE SODIUM 100 MCG TAB PO SCH (06:00)
[2017-03-13] MEDS: predniSONE 5 MG TAB PO SCH (08:30)
[2017-03-13] MEDS: ISOSORBIDE MONONITRATE 20 MG TAB PO SCH (08:30)
[2017-03-13] MEDS: MEGESTROL ACETATE SUSP 400 MG/10 ML CUP PO SCH (08:30)
[2017-03-13] MEDS: NICOTINE 21 MG/24 HR PATCH T-DERMAL SCH (08:31)
[2017-03-13] MEDS: MUPIROCIN 2% CREAM 15 GM TOPICAL SCH (08:31)
[2017-03-13] MEDS: risperiDONE 0.5 MG TAB PO SCH (08:31)
[2017-03-13] MEDS ORDERED: CHOLECALCIFEROL (VIT D3) 5000 UNIT CAP PO SCH (09:00)
--- NOTE | 2017-03-13 11:21 | HHI.PYPN ---
Subjective Remarks Patient was seen today for psychiatric reevaluation, patient is sedated, but arousable, unable to provide any significant information for the psychiatric assessment, completely disoriented and disorganized, she seems to be in acute distress. Review of Systems ROS Limitations: Uncooperative Objective Alert: Yes [place]: Person Mood: Agitated Affect: Restricted Memory Intact: Comment (was not assessed) Hallucinations: Other (was not assessed) Delusions: No (was not assessed) Delusion Type: Other (was not assessed) Suicidal: Ideation (was not assessed) Homicidal: Ideation (was not assessed) Insight/Judgment was not assessed Vitals/IOs Vital Signs Date Time Temp Pulse Resp B/P Pulse Ox O2 Delivery O2 Flow Rate FiO2 03/13/17 09:15 Nasal Cannula 2.00 03/13/17 05:34 97 152/72 94 03/12/17 22:40 21 03/12/17 17:27 97.8 16 Intake and Output 03/12/17 03/12/17 03/13/17 08:00 16:00 00:00 Intake Total 480 ml 0 ml Balance 480 ml 0 ml Assessment & Plan Problem List: (1) Psychoses Assessment & Plan: To the psychiatric evaluation patient seems to be in acute distress, disoriented, confused, most probably delirious. We discussed with medical team the convenience of transferring the patient back to the medical floor. ICD Code: F29 Assessment & Plan Estimated LOS: days Justification for Cont. Inpt. Patient needs psychiatric hospitalization for stabilization Ta Saravia MD Mar 13, 2017 11:21
[2017-03-13] MEDS ORDERED: BUMETANIDE INJ 1 MG/4 ML VIAL IV PUSH ONE (11:45)
[2017-03-13 13:14] LABS: BLOOD GAS BASE EXCESS -5.9 mmol/L (-2-2); BLOOD GAS CARBOXYHEMOGLOBIN 1.6 % (0-4); BLOOD GAS HCO3 18 mmol/L (22-26); BLOOD GAS METHEMOGLOBIN 0.9 % (0-2); BLOOD GAS O2 HGB SATURATION 96 % (90-100); BLOOD GAS PCO2 30 mmHg (38-42); BLOOD GAS PO2 122 mmHg (61-120); BLOOD GAS TOTAL HGB 12.4 G/DL (12.0-16.0); TEMP CORR TO 98.6
[2017-03-13 13:15] LABS: CRITICAL VALUE NO; DRAW SITE RT RADIAL; LITER FLOW 2 L/M; NUMBER OF ARTERIAL PUNCTURES 1; OXYGEN DEVICE NASAL CANNULA; STAT NO; ULNAR PULSE PRESENT
[2017-03-13 14:22] LABS: AUTOMATED NEUTROPHIL # 5.8 TH/MM3 (1.8-7.7); BASOPHIL % 0.5 % (0.0-2.0); EOSINOPHIL # 0.1 TH/MM3 (0-0.4); EOSINOPHIL % 1.5 % (0.0-4.0); HEMATOCRIT 40.8 % (35.0-46.0); HEMO FLAGS DIFF FINAL; LYMPH % 14.1 % (9.0-44.0); LYMPHOCYTE # 1.1 TH/MM3 (1.0-4.8); MEAN CELL VOLUME 87.9 FL (80.0-100.0); MEAN CORPUSCULAR HEMOGLOBIN 28.6 PG (27.0-34.0); MEAN CORPUSCULAR HGB CONC 32.5 % (32.0-36.0); MONO % 8.6 % (0.0-8.0); NEUT % 75.3 % (16.0-70.0); PLATELET COUNT 136 TH/MM3 (150-450); RED BLOOD COUNT 4.64 MIL/MM3 (4.00-5.30); RED CELL DISTRIBUTION WIDTH 22.7 % (11.6-17.2); WHITE BLOOD COUNT 7.7 TH/MM3 (4.0-11.0)
--- NOTE | 2017-03-13 14:48 | PD.CONS ---
Consult Service Palliative Care Consult Requested By Dr. Quintero Primary Care Physician No Primary Care Physician Reason for Consultation a. To assist with evaluation and management of symptoms including: Shortness of breath, dysphagia and debility. b. To assist medical decision maker(s) with: better understanding of current medical conditions; weighing benefits/burdens of medical treatment options; making medical treatment decisions. . HPI History of Present Illness Mrs. Mayers is an 86 y/o female with a medical history of anxiety, CHF, cirrhosis , hypertension and hypothyroidism. Patient was admitted on 03/11/17 2 psychiatric inpatient unit for stabilization. Patient was reported combinative and agitated overnight. Unable to redirect verbally. She was medicated with Ativan 2 mg. Son Liban in agreement with psychotropic and psychiatric care. Chest x-ray 03/12/17 revealing mild bibasilar consolidation and small effusions. Patient was started on IV antibiotic for treatment of pneumonia. Patient's clinical condition continued to worsen, patient lethargic. Ativan was decreased from 1 mg to 0.5 mg. Patient with decreased oral intake, percent and with signs of dysphagia as evidenced by coughing with meals. Pending transfer to medical floor for management of worsening respiratory status and mental status not improving. Palliative care was reconsulted for further clarifications of goals of care given patient's worsening clinical condition. Reviewed medical records. Patient originally presented to the ED via EMS on for evaluation of confusion. Patient's caregiver reported that she has been more confused for several weeks. Patient has a history of recurrent UTIs and was given antibiotics for it. Patient reportedly flush overmedication down the toilet. She hospice patient during admission and reportedly been on hospice for 2 years. Lower extremity ultrasound negative for DVT. Head CT 03/04 negative for acute process. Patient was placed under observation for metabolic encephalopathy, UTI, acute kidney injury, hyperkalemia, elevated troponin and bilateral lower extremity edema. Psychiatry, Dr. Hoover consulted on 03/04/17 secondary to delirium. Patient exhibiting psychotic delusional behavior. Patient verbalize feeling that patient was being poisoned by hospital staff and by caretakers. Patient remained confused and disoriented to time place and situation. Questionable underlying dementia. Patient was started on Abilify 1 mg daily. Urine culture 03/04/17 positive for Escherichia coli. Palliative care was consulted during prior admission for further clarifications of goals of care. At that time, family not ready to transition patient to comfort care. Family was seeking discharge to a halfway facility in [place] where daughter Parul resides. Patient's mental status continued to worsen requiring psychiatric inpatient/[facility] act on 03/11/17 for stabilization of confusion, hallucination and paranoia. Patient seen in psych unit. She was resting in bed in no acute distress. Sleepy, opening eyes to verbal stimuli. Following some simple commands. Patient alert to self, disoriented as to place and situation. Denying pain, however, moaning when moved during physical exam. Patient afebrile, stable hemodynamically. O2 via nasal cannula at 2 L, oxygen saturation in the mid 90s. Laboratory workup today showing WBC 7.7, Hgb 13.2, platelet count 136. Most recent chemistry on 03/12/17 revealing sodium 142, potassium 4.3, BUN/ creatinine 23/0.88. BNP 529. Case discussed with bedside nurse, patient 825% of breakfast, reports of dysphagia as evidence of continue coughing during meals. Case discussed with Dr. Saravia. Pending transfer to medical floor secondary to worsening respiratory status. Telephone call to health care surrogate Liban. Left message with . Spoke with daughter Aleksandra over the phone and Parul at bedside. Medical update provided. Reviewed events leading to this hospitalization, clinical course and current medical management. Share concerns regarding patient's worsening clinical status as evidenced by worsening respiratory status, pneumonia, dysphagia. Patient clearly uncomfortable during my visit, moaning, she remained restrained for safety. Reviewed with the family that it would be very difficult for patient to overcome this acute hospitalization given her multiple chronic comorbidities, acute illness, worsening respiratory condition, advanced age and profound physical deconditioning. Reviewed continuation of conservative management versus transition patient to comfort directed care with hospice. Family leaning towards comfort directed care with hospice. Asking appropriate questions regarding hospice care centers and symptom management. Family to discuss further. Case discussed with Dr. Saravia, Dr. Quintero and bedside RN. . Function/Cognitive Trajectory As per patient's daughter Hilda, patient has been on hospice for 2 years secondary to cardiac issues. She has history of CHF and poorly controlled edema that has been difficult to manage despite multiple diuretics. She has O2 at home at which she is non-compliant. Pt was not confused and mentally sharp, per daughter until 01/22 of this year where pt pain has worsen and was overmedicated. She was sleeping until family ask hospice to stop giving her medication. Subsequently, patient became more alert and responsive, but since then she has been totally confused, paranoid, thinking that the she is constantly being monitored. Pt constantly think someone poisoned her food. Patient using walker at home. Patient with private duty caregiver at home from 8:00-12 PM and 9 PM-7 AM. Patient requiring assistance with ADLs. . Review of Systems ROS Limitations: Clinical Condition, Altered Mental Status, Refused, Poor Historian Constitutional: COMPLAINS OF: Change in appetite Endocrine: DENIES: Heat/cold intolerance Eyes: DENIES: Eye inflammation Ears, nose, mouth, throat: DENIES: Hearing loss, Nasal discharge Respiratory: COMPLAINS OF: Cough, Shortness of breath Cardiovascular: COMPLAINS OF: Dyspnea on Exertion, Lower Extremity Edema Gastrointestinal: COMPLAINS OF: Difficulty Swallowing, DENIES: Abdominal pain , Diarrhea, Vomiting Genitourinary: COMPLAINS OF: Urinary incontinence Musculoskeletal: COMPLAINS OF: Decreased range of motion Integumentary: COMPLAINS OF: Abnormal pigmentation Hematologic/Lymphatics: COMPLAINS OF: Bruising Immunologic/Allergic: DENIES: Eczema Neurologic: COMPLAINS OF: Abnormal gait, Poor Balance Psychiatric: COMPLAINS OF: Anxiety, Confusion, Hallucinations, Agitation Other ROS: Limited ROS secondary to patient's clinical condition. ROS obtained from medical records, patient's family and observation. . Past Family Social History Coded Allergies: Augmentin (Verified Allergy, Severe, 03/04/17) Beta Blockers (Verified Allergy, Severe, 03/04/17) Flagyl (Verified Allergy, Severe, 03/04/17) Levaquin (Verified Allergy, Severe, 03/04/17) Morphine (Verified Allergy, Severe, 03/04/17) Seafood (Verified Allergy, Severe, 03/04/17) Lasix (Verified Allergy, Intermediate, 03/04/17) Amoxicillin (Verified Allergy, Unknown, 03/04/17) Spironolactone (Verified Allergy, Unknown, 03/04/17) Past Medical History Cirrhosis, secondary to hepatitis C CHF Recurrent UTIs Hypothyroidism Anxiety Hypertension . Past Surgical History Bilateral cataract surgery section 4 Partial colectomy Tonsillectomy Thyroidectomy Skin cancer removal Mastoid surgery Gallbladder removal . Reported Medications Simethicone 125 Mg Chw 125 Mg CHEW QID PRN Flexeril (Cyclobenzaprine HCl) 5 Mg Tab 5 Mg PO TID Bactroban Topical (Mupirocin) 22 Gm Cream 1 Applic TOPICAL BID Potassium Chloride Liq (Potassium Chloride) 20 Meq/15 Ml Soln 20 Meq PO TID Levsin-SL (Hyoscyamine Sulfate) 0.125 Mg Subl 0.125 Mg SL Q4H Lidoderm (Lidocaine) 5 % Adh..patch Demadex (Torsemide) 10 Mg Tab 10 Mg PO DAILY Senna-Tabs (Sennosides) 8.6 Mg Tab 8.6 Mg PO BID Miralax Powder (Polyethylene Glycol 3350 Powder) 17 Gm Powd 17 Gm PO DAILY Voltaren (Diclofenac Sodium) 100 Gm Gel..gram. Metolazone 5 Mg Tab 5 Mg PO MONWEDFRI Prednisone 10 Mg Tab 10 Mg PO DAILY Benadryl Allergy (Diphenhydramine HCl) 25 Mg Cap Isosorbide Mononitrate 10 Mg Tab 10 Mg PO DAILY Ativan (Lorazepam) 0.5 Mg Tab 0.5 Mg PO Q4H PRN Protonix (Pantoprazole Sodium) 40 Mg Tab 40 Mg PO DAILY Zofran (Ondansetron HCl) 4 Mg Tab 4 Mg PO Q6HR PRN Ultram (Tramadol HCl) 50 Mg Tab 25 Mg PO Q6H PRN Nitrostat SL (Nitroglycerin) 0.4 Mg Subl 0.4 Mg SL DIRECTED PRN Levothyroxine (Levothyroxine Sodium) 100 Mcg Tab 100 Mcg PO DAILY [Ketoprofen Gel] 5 % TOPICAL TID Dulcolax Supp (Bisacodyl) 10 Mg Supp 10 Mg RECTAL DAILY PRN Proventil Hfa 6.7 GM Inh (Albuterol Sulfate) 90 Mcg/Act Aer 2 Puff INH Q4-6H PRN Claritin (Loratadine) 10 Mg Tablet Guaifenesin-Dm Liq (Guaifenesin/Dextromethorphan) 100-10 Mg/5 Ml Syrp Lidocaine Topical (Lidocaine HCl) 2 % Jel 1 Applic TOPICAL QID Ketoconazole Topical 2% Cream 1 Applic TOPICAL DAILY . Current Medications Medications (Trade) Dose Ordered Sig/Anupama Route Start Time Stop Time Status Last Admin (Tylenol) 650 mg Q4H PRN PO 03/11/17 15:45 (Milk Of Magnesia Liq) 30 ml DAILY PRN PO 03/11/17 15:45 (Mag-Al Plus Susp Liq) 30 ml Q6H PRN PO 03/11/17 15:45 (Habitrol 21 Mg Patch.24 Hr) 1 patch DAILY T-DERMAL 03/11/17 15:45 (risperDAL) 0.5 mg BID PO 03/11/17 21:00 (Flexeril) 5 mg Q8H PRN PO 03/11/17 19:30 (Ismo) 10 mg DAILY PO 03/12/17 09:00 03/12/17 09:16 (Megace Liq) 400 mg DAILY PO 03/12/17 09:00 03/12/17 09:16 (Bactroban 2% Cream) 1 applic BID TOPICAL 03/11/17 21:00 (Deltasone) 5 mg DAILY PO 03/12/17 09:00 03/12/17 09:16 Simethicone 125 mg 125 mg QID PRN CHEW 03/11/17 19:30 (Maxipime Inj/NS Inj) 100 ml @ 200 mls/hr Q12H IV 03/12/17 16:00 03/13/17 04:00 (Vitamin D3) 5,000 units DAILY PO 03/13/17 09:00 (Synthroid) 100 mcg DAILY@06 PO 03/13/17 06:00 (Haldol Inj) 1 mg Q6H PRN IM 03/12/17 18:00 Family History Sister with colon cancer. . Substance Use Tobacco: None reported. Alcohol: None reported. Prescription med abuse: None reported. Illicits: None reported. . Psychosocial History Patient originally from [place]. . Patient has 4 children. Patient was in real state. . Spiritual/Cultural Factors Jew heather. . Living Will: Copy in medical record Health Care Surrogate: Copy in medical record Durable Power of Spanish Teacher: Completed, but not made available Date completed: 04/04/2013. . Health Care Surrogate(s): Nikhil Powers is healthcare surrogate. Alt surrogate daughters Mercedes Lake and Edyta. . Documented care wishes: Living will with standard verbiage as it related to terminal condition, end- stage condition or persistent vegetative state. . Family/friends goals: No code. DNR/DNI. Ethical and Legal Issues Patient unable to participate in medical decision-making secondary to clinical condition. . Physical Exam Vital Signs Date Time Temp Pulse Resp B/P Pulse Ox O2 Delivery O2 Flow Rate FiO2 03/13/17 09:15 Nasal Cannula 2.00 03/13/17 05:34 97 152/72 94 03/13/17 00:20 88 138/83 97 03/12/17 22:40 21 03/12/17 17:27 97.8 126 16 148/112 95 03/12/17 03/13/17 19:00 07:00 Intake Total 480 ml 367 ml Balance 480 ml 367 ml Intake Oral 480 ml 0 ml IV Total 367 ml # Voids 3 2 Exam CONSTITUTIONAL/GENERAL: This is an elderly female resting in bed in no acute distress. TUBES/LINES/DRAINS: PIV's, nasal cannula, bilateral soft wrist restraints. SKIN: No jaundice, rashes, or lesions. Large areas of ecchymoses on upper extremities and chest. No wounds seen anteriorly. Skin temperature appropriate. Not diaphoretic. Stasis dermatitis to bilateral lower extremities. HEAD: Atraumatic. Normocephalic. EYES: Pupils equal and round and reactive. No scleral icterus. No injection or drainage. Fundi not examined. ENT: Hearing grossly normal. Nose without bleeding or purulent drainage. Moist oral mucosa. NECK: Trachea midline. Supple, nontender. CARDIOVASCULAR: Regular rate and rhythm. Murmur. No JVD. Peripheral pulses symmetric. RESPIRATORY/CHEST: Symmetric, unlabored respirations. Coarse breath sounds bilaterally. O2 via nasal cannula. GASTROINTESTINAL: Abdomen soft, non-tender, nondistended. No guarding. Bowel sounds present. GENITOURINARY: Without palpable bladder distension. MUSCULOSKELETAL: Extremities without clubbing, cyanosis. Edema to bilateral lower extremities. Muscular atrophy to bilateral lower extremities. Deformity to bilateral great toes. Very long toenails with hyperkeratosis. NEUROLOGICAL: Sleepy. Briefly opening eyes to verbal stimuli. Soft voice. Answering a few simple questions. Following some simple commands. PSYCHIATRIC: Calm. . Diagnostic Tests Laboratory Laboratory Tests Test 03/12/17 03/12/17 03/13/17 06:40 08:07 12:58 Blood Gas Puncture Site RT RADIAL RT RADIAL Blood Gas Patient Temperature 98.6 98.6 Blood Gas HCO3 18 mmol/L 18 mmol/L (22-26) (22-26) Blood Gas Base Excess -6.6 mmol/L -5.9 mmol/L (-2-2) (-2-2) Blood Gas Oxygen Saturation 95 % (90-100) 96 % (90-100) Arterial Blood pH 7.37 7.39 (7.380-7.420) (7.380-7.420) Arterial Blood Partial 31 mmHg (38-42) 30 mmHg (38-42) Pressure CO2 Arterial Blood Partial 95 mmHg 122 mmHg Pressure O2 (61-120) (61-120) Arterial Blood Oxygen Content 16.9 Vol % 17.0 Vol % (12.0-20.0) (12.0-20.0) Arterial Blood 1.7 % (0-4) 1.6 % (0-4) Carboxyhemoglobin Arterial Blood Methemoglobin 0.9 % (0-2) 0.9 % (0-2) Blood Gas Hemoglobin 12.6 G/DL 12.4 G/DL (12.0-16.0) (12.0-16.0) Oxygen Delivery Device NASAL CANNULA NASAL CANNULA Blood Gas Liter Flow 2 L/M 2 L/M White Blood Count 5.7 TH/MM3 (4.0-11.0) Red Blood Count 4.35 MIL/MM3 (4.00-5.30) Hemoglobin 12.5 GM/DL (11.6-15.3) Hematocrit 38.1 % (35.0-46.0) Mean Corpuscular Volume 87.7 FL (80.0-100.0) Mean Corpuscular Hemoglobin 28.7 PG (27.0-34.0) Mean Corpuscular Hemoglobin 32.7 % Concent (32.0-36.0) Red Cell Distribution Width 22.4 % (11.6-17.2) Platelet Count 139 TH/MM3 (150-450) Mean Platelet Volume 8.3 FL (7.0-11.0) Neutrophils (%) (Auto) 68.8 % (16.0-70.0) Lymphocytes (%) (Auto) 22.2 % (9.0-44.0) Monocytes (%) (Auto) 7.2 % (0.0-8.0) Eosinophils (%) (Auto) 1.3 % (0.0-4.0) Basophils (%) (Auto) 0.5 % (0.0-2.0) Neutrophils # (Auto) 3.9 TH/MM3 (1.8-7.7) Lymphocytes # (Auto) 1.3 TH/MM3 (1.0-4.8) Monocytes # (Auto) 0.4 TH/MM3 (0-0.9) Eosinophils # (Auto) 0.1 TH/MM3 (0-0.4) Basophils # (Auto) 0.0 TH/MM3 (0-0.2) CBC Comment DIFF FINAL Differential Comment Sodium Level 142 MEQ/L (136-145) Potassium Level 4.3 MEQ/L (3.5-5.1) Chloride Level 113 MEQ/L (98-107) Carbon Dioxide Level 18.9 MEQ/L (21.0-32.0) Anion Gap 10 MEQ/L (5-15) Blood Urea Nitrogen 23 MG/DL (7-18) Creatinine 0.88 MG/DL (0.50-1.00) Estimat Glomerular Filtration 61 ML/MIN (>89) Rate Random Glucose 70 MG/DL (74-106) Hemoglobin A1c 4.7 % (4.3-6.0) Calcium Level 8.5 MG/DL (8.5-10.1) B-Type Natriuretic Peptide 529 PG/ML (0-100) Triglycerides Level 93 MG/DL (42-150) Cholesterol Level 142 MG/DL (120-200) LDL Cholesterol 100 MG/DL (0-99) HDL Cholesterol 23.1 MG/DL (40.0-60.0) Cholesterol/HDL Ratio 6.14 RATIO Result Diagram: 03/12/17 0807 03/12/17 0807 Imaging Last Impressions Chest X-Ray 03/12/17 0000 Signed Impressions: Service Date/Time: February 06:07 - CONCLUSION: Mild bibasilar consolidation and small effusions. Alexi Sweeney MD Patient/Family Conference Present at Family Conference: Daughter Aleksandra via telephone call and harshal Teran at bedside. Family Conference Time (mins): 42 Family Conference Location: Bedside, Telephone Issues Discussed: * Palliative care role, purpose, approach * Additional medical, psychosocial, and spiritual history * Patients general health, functional status, and cognitive changes in the months leading up to the current hospitalization * Family's understanding of the current medical problems -psych admission secondary to paranoia and hallucinations. Anemia, CHF exacerbation, UTI. Worsening respiratory condition. * Family's understanding of prognosis -likely poor given worsening clinical condition. * Patients goals of care as best understood from advance directives and/or conversations and/or values * Current medical treatment options and benefits/burdens of those options * Likely scenarios comparing ongoing aggressive care with a transition to comfort measures only * Questions answered to the best of my ability * Palliative care contact information provided * Hospice philosophy and benefits . Assessment and Plan Disease Oriented Problem List: (1) Pneumonia (2) CHF (congestive heart failure) (3) UTI (urinary tract infection) (4) Psychoses Symptom Scale: (1) Shortness of breath 0-10 Scale: Unable to quantify Comment: Likely secondary to pneumonia, CHF. Currently on O2 via nasal cannula at 2 L. (2) Debility 0-10 Scale: Unable to quantify Comment: Progressive. Worsen for the past month. (3) Dysphagia 0-10 Scale: Unable to quantify Comment: Coughing episodes during meals. . Pertinent Non-Medical Issues Psychosocial: . Has 4 children. Spiritual: Jew heather. Legal: Advance directives completed. Ethical issues impacting care: no ethical issues identified. Important Contacts HCS/son Liban Powers Parul Beltran (daughter) [phone] or [phone]. Aleksandra Abiodunnayeli (daughter) [phone] Hilda (daughter) [phone] . Prognosis Mrs. Mayers is an 86-year-old female with a medical history of hypertension, anxiety, cirrhosis, CHF, hypothyroidism. Although in terms of cirrhosis- on surface does not appear to meet hospice criteria ( INR of >1.5 and Serrum Albumin of <2.5) Pt's currently INR is 1.1 and Albumin is 2.5). Pt is confused, I do not see any documentation of Dementia thus far, but her FAST score does not appear to be 7C or beyond. However there is a convergence of multiple issues, with none dominant that makes her condition destabilizing. She continue to have cardiac issue, mainly with edema for which it has been very difficult to control despite multiple diuretics. She has fallen which required ER visit. Furthermore her hallucinations and mentation has progressively worsened since 01/22 to which she worry someone poisoned her food. Her appetite fluctuates, now is minimal with evidence of dysphagia. Patient is a high risk for further decline, acute complications and . Prognosis is poor given worsening respiratory status and mental status. . Code Status: No Code Plan * CODE STATUS: DNR DNI. * HEALTHCARE DECISION-MAKING: Patient unable to participate in medical decision- making secondary to clinical condition; confusion, lethargy. Designation of healthcare surrogate in file. Son Liban Powers is healthcare surrogate. Alt surrogate daughters Mercedes Lake and Edyta. * GOALS OF CARE: Continuing conservative management short of NO code for now. Family actively considering transitioning patient to comfort-directed care with hospice for pain and symptom management given her worsening clinical condition, acute illness, dysphagia, multiple comorbidities, advanced age and known wishes . Patient recently under hospice services with [facility]. Family wishing for a different hospice provider. Hospice information has been provided. --Telephone call to health care surrogate Liban. Left message with . Spoke with daughter Aleksandra over the phone and Parul at bedside. Medical update provided. Reviewed events leading to this hospitalization, clinical course and current medical management. Shared concerns regarding patient's worsening clinical status. Patient clearly uncomfortable during my visit, moaning, she remained restrained for safety. Reviewed with the family that it would be very difficult for patient to overcome this acute hospitalization given her multiple chronic comorbidities, acute illness, worsening respiratory condition, advanced age and profound physical deconditioning. Discussed continuation of conservative management versus transition patient to comfort directed-care with hospice. Family leaning towards comfort directed care with hospice. Asking appropriate questions regarding hospice care centers and symptom management. Family to discuss further. * SYMPTOMS: = Shortness of breath: Secondary to acute pneumonia, CHF. Currently on IV antibiotics. O2 via nasal cannula. DuoNeb every 6 hours. = Debility: Progressive, worsening for the past month. Not likely to improve secondary to worsening clinical condition. = Dysphagia: Most recent swallow eval on 03/11/17. Patient was placed on mechanical soft diet. Patient now with increasing coughing episodes with meals. = Paranoia/hallucinations/agitation: Being followed by psychiatry. Risperidone 0.5 mg twice a day, Haldol as needed. = Pain, appears chronic. Patient was continued on home regimen of Flexeril 5 mg every 8 hours. * Case has been discussed in great detail with Dr. Saravia, Dr Quintero and bedside RN. * Palliative care contact information has been provided to family. * Palliative care will continue to follow-up for further clarifications of goals of care as patient's clinical course evolves. . Time Spent Total Floor Time (mins): 82 (Total time to include review and summarization of available medical records to include prior hospitalizations, physical exam, 2 separate goals of care discussion with daughters, case discussion with Dr. Saravia and bedside RN.) >50% Counseling/Coord of Care: Yes Thank you for the opportunity to participate in the care of Ms. Mayers. Attestation To help prompt me to consider important information that might be impacting today's encounter and assessment, information from prior notes written by myself or my colleagues may have been "brought forward" into today's note. My signature on this note, however, is an attestation that I personally performed the exam, history, and/or decision-making noted today, and, unless otherwise indicated, the interactions with patient, family, and staff as well as the review of records all occurred today. I also attest that the listed assessment and stated plan reflect my best clinical judgment today based on the combination of historical information, prior notes, and today's exam/ interactions. When time spent is documented, it refers only to time spent today by the signer, or if indicated, combined time spent today by collaborating physician/nurse practitioner. Yolette Coombs Mar 13, 2017 14:47
--- NOTE | 2017-03-13 15:17 | RADRPT ---
EXAM DATE/TIME: 03/13/2017 14:21 [facility] COMPARISON: CHEST SINGLE AP, March 12, 2017, 6:07. INDICATIONS : Short of breath. MEDICAL HISTORY : Hypertension. Chronic obstructive pulmonary disease. Hepatitis C. SURGICAL HISTORY : None. ENCOUNTER: Initial ACUITY: 1 week PAIN SCORE: Non-responsive. LOCATION: Bilateral chest FINDINGS: Cardiomegaly present. Mild basilar airspace disease. Small effusions. No pneumothorax. Mild scoliosis . CONCLUSION: 1. Cardiomegaly with mild basilar airspace disease and small effusions most characteristic of mild co ngestive heart failure. Findings similar to February 09. Dale Hernandez MD on March 13, 2017 at 15:14 Board Certified Radiologist. This report was verified electronically.
[2017-03-13 15:57] LABS: ALT (GPT) 20 U/L (10-53); ANION GAP 11 MEQ/L (5-15); AST (GOT) 41 U/L (15-37); BICARBONATE 21.2 MEQ/L (21.0-32.0); CHLORIDE 114 MEQ/L (98-107); GLOMERULAR FILTRATION RATE 58 ML/MIN (>89); POTASSIUM 4.3 MEQ/L (3.5-5.1); SODIUM (NA) 146 MEQ/L (136-145)
[2017-03-13 15:58] LABS: ALKALINE PHOSPHATASE 86 U/L (45-117); TOTAL BILIRUBIN ADULT 1.7 MG/DL (0.2-1.0)
[2017-03-13 15:59] LABS: BLOOD UREA NITROGEN 22 MG/DL (7-18)
--- NOTE | 2017-03-13 18:26 | HHI.PR ---
Subjective Remarks late entry - patient seen at 930 Follow up on patient with HTN, hypothyroidism, hepatitis C, cirrhosis, recurrent UTI, anxiety, depression and delirium. Patient seen and examined today. She is lying in bed with her eyes open. She does not make eye contact. Patient is nonverbal except to moan when she is moved for examination. She is not responding to any questions. Discussed with nursing staff who states her O2 sats dropped into the 80s with out her oxygen. She has also had choking with swallowing. Per [employer], patient was speaking 2 days ago. The pt was lethargic and having respiratory distress. She was not responsive to questioning. Objective Vitals Vital Signs Date Time Temp Pulse Resp B/P Pulse Ox O2 Delivery O2 Flow Rate FiO2 03/13/17 09:15 Nasal Cannula 2.00 03/13/17 05:34 97 152/72 94 03/13/17 00:20 88 138/83 97 03/12/17 22:40 21 I/O 03/12/17 03/12/17 03/12/17 03/13/17 03/13/17 03/13/17 07:00 15:00 23:00 07:00 15:00 23:00 Intake Total 480 ml 0 ml 367 ml 120 ml Balance 480 ml 0 ml 367 ml 120 ml Intake Oral 480 ml 0 ml 120 ml IV Total 367 ml # Voids 2 3 2 Result Diagram: 03/13/17 1401 03/13/17 1523 Imaging Last Impressions Chest X-Ray 03/13/17 0000 Signed Impressions: Service Date/Time: Monday, March 13, 2017 14:21 - CONCLUSION: 1. Cardiomegaly with mild basilar airspace disease and small effusions most characteristic of mild congestive heart failure. Findings similar to February 09. Dale Hernandez MD Objective Remarks GENERAL: This is a well-nourished, well-developed patient. Altered mental status. Nonverbal. Does not follow commands. SKIN: Bilateral lower extremities appears to have stasis. Warm and dry. HEAD: Atraumatic. Normocephalic. EYES: Pupils equal round and reactive. Extraocular motions intact. No scleral icterus. No injection or drainage. ENT: Dry mucous membranes. CARDIOVASCULAR: Regular rate and rhythm without murmurs, gallops, or rubs. RESPIRATORY: Diaphragmatic breathing noted. Poor effort. Difficult to assess. GASTROINTESTINAL: Abdomen soft, non-tender, nondistended. Bowel sounds hypoactive. MUSCULOSKELETAL: Extremities without clubbing, cyanosis, bilateral lower extremity +2 edema. NEUROLOGICAL: Motor and sensory grossly within normal limits. Moving all extremities. Obtunded Tachypnea noted Unable to assess neuro status A/P Problem List: (1) Hypothyroid ICD Code: E03.9 Status: Acute (2) UTI (urinary tract infection) ICD Code: N39.0 Status: Acute (3) GERD (gastroesophageal reflux disease) ICD Code: K21.9 Status: Chronic (4) CHF (congestive heart failure) ICD Code: I50.9 Status: Acute (5) Hepatitis C ICD Code: B19.20 Status: Chronic Assessment and Plan Patient is an 86 year old female with primary medical history of HTN, hypothyroidism, hepatitis C, cirrhosis, recurrent UTI, anxiety, depression who came into the hospital brought in by family secondary to increased confusion delirium. Patient was previously on hospice care. Treated for urinary tract infection. She is now admitted to inpatient medical psychiatry unit. Consulted for medical management. Metabolic Encephalopathy Paranoia Delirium - CT head showed unremarkable study - Possibly related to urinary tract infection and underlying dementia - Psychiatry team to manage paranoia and delirium, questionable dementia - Consult palliative care - Patient choking on her food. We'll order a swallow evaluation. - Was on IV fluids but DC'd due to concerns for fluid overload Follow up with palliative care. Speech therapy. Management per psych. Urinary tract infection - Previously treated on Rocephin 5 doses, started on Macrobid. - Urine culture with Escherichia coli - Will DC Macrobid for now. Switch over to cefepime to cover pneumonia Continue antibiotics. HCAP, pneumonia - Diaphragmatic breathing noted on exam. Due to patient's cognitive impairment and poor respiratory effort difficult to assess on exam. Repeat CXR. Give dose of Bumex for possible fluid overload. - Chest x-ray 03/12 showed mild bibasilar consolidation and small effusions - Obtain ABGs - Continue cefepime IV - Completed Solu-Medrol IV 60 mg 1 dose yesterday. Patient is on prednisone 5 mg daily. - Continue Duonebs - O2 nasal cannula keep O2 sat greater than 90%. Restraints ordered to keep patient from taking nasal cannula off. - Monitor respiratory status Oxygen, nebs as needed. Antibiotics. Palliative care following. Swallow eval. Bilateral Lower Extremity Edema - Exam appears consistent with chronic venous stasis changes, - Doppler U/S negative for DVT. Elevation. CHF, systolic Hypertension, chronic - Continue Imdur. Hold diuretics Hx of NIRAV during inpatient admission. BNP 529 - Monitor BP Hypothyroidism - Continue patient's levothyroxine 100mcg - TSH elevated, T3 low. Suspect noncompliance with medications or stress hospitalization related therefore will hold off on increasing synthroid at this time - Outpatient f/up with PCP. Chronic back pain - Continue home Lidoderm, Flexeril, prednisone. - Caution with medications that could worsen delirium or increase sedation Vitamin D deficiency - continue vitamin D replacement. DVT Prophylaxis: TEDs/SCDs Discussed with patient, nursing staff and Dr. Quintero Attending Statement The exam, history, and the medical decision-making described in the above note were completed with the assistance of the mid-level provider. I reviewed and agree with the findings presented. I attest that I had a [id number] encounter with the patient on the same day, and personally performed and documented my assessment and findings in the medical record. Anamaria Gerard Mar 13, 2017 18:26 Murali Quintero DO Mar 14, 2017 17:38
== END 2017-03-13 16:50 | disposition home or self-care (01) | DRG 885 ==
LOC: H4EA 15:05
PROVIDERS: ADMIT Psychiatry & Neurology Psychiatry; ATTEND Psychiatry & Neurology Psychiatry
DX: F29 Unspecified psychosis not due to a substance or known physiological condition (principal); G93.41 Metabolic encephalopathy; J18.9 Pneumonia, unspecified organism; I11.0 Hypertensive heart disease with heart failure; F03.90 Unspecified dementia, unspecified severity, without behavioral disturbance, psychotic disturbance, mood disturbance, and anxiety; K74.60 Unspecified cirrhosis of liver; I50.20 Unspecified systolic (congestive) heart failure; E55.9 Vitamin D deficiency, unspecified; R13.10 Dysphagia, unspecified; N39.0 Urinary tract infection, site not specified; E03.9 Hypothyroidism, unspecified; B19.20 Unspecified viral hepatitis C without hepatic coma; Z87.440 Personal history of urinary (tract) infections; F41.9 Anxiety disorder, unspecified; F32.9 Major depressive disorder, single episode, unspecified; K21.9 Gastro-esophageal reflux disease without esophagitis; F22 Delusional disorders; Y95 Nosocomial condition; I87.8 Other specified disorders of veins; G89.29 Other chronic pain; M54.9 Dorsalgia, unspecified; Z51.5 Encounter for palliative care; Z66 Do not resuscitate; Z85.828 Personal history of other malignant neoplasm of skin; Z99.81 Dependence on supplemental oxygen; Z91.19 Patient's noncompliance with other medical treatment and regimen
CPT/HCPCS: 36600; 71010; 80048; 80053; 80061; 82805; 83036; 83880; 85025; 94640; 94664; J0692; J2060; J7040; J7512

== ENCOUNTER 2017-03-13 17:24 | Inpatient (IN) | payer MEDICARE ==
[~2017-03-13 17:24] MED LIST changes: -ADVAI100I PO; -BENA25CA4; -CLAR10TA7; -CODE60 PO; -CYCL-36 PO; -DEMA10TA PO; -DYAZ37.52 PO; -ISOS20TA PO; -KETO2CRE TOPICAL; -LEVO100T4 PO; -LEVS0.124 SL; -METO5TAB3 PO; -MIRA3350 PO; -OMEP20TA39 PO; -PRED10 PO; -PROT40TA PO; -ROBIDM5S; -SENN8.6T36 PO; -TIOT18I INH; -TRAM50 PO; -ULTR50TA5 PO; -VOLT1GEL4; -ZOFR4TAB PO; -[UNRECOGNIZED DRUG - OTHER] PO
[2017-03-13 20:00] VITALS: BP_SYST 119; BP_SYST 128; BP_DIAS 55; BP_DIAS 70; PULSE 78; PULSE 95; RESP 20; RESP 22; TEMP 97.2; TEMP 97.5; O2SAT 90; O2SAT 93
[2017-03-13] MEDS ORDERED: SODIUM CHLORIDE 0.9% FLUSH 10 ML FLUSH IV FLUSH PRN (20:30)
[2017-03-13] MEDS ORDERED: NALOXONE HCL 0.4 MG/ML AMP IV PRN (20:30)
[2017-03-13] MEDS ORDERED: ONDANSETRON HCL 4 MG/2 ML VIAL IVP PRN (20:30)
[2017-03-13] MEDS ORDERED: BISACODYL 10 MG SUPP RECTAL PRN (20:30)
--- NOTE | 2017-03-13 20:52 | HHI.PR ---
Blank section for building Confirmed with Patient's Daughter Parul Beltran that patient is a DNR. Nerissa Reynoso Mar 13, 2017 20:52
[2017-03-13] MEDS ORDERED: SODIUM CHLOR 0.9% 1000 ML INJ 1,000 ML IV SCH (21:00)
[2017-03-13] MEDS ORDERED: RESP: ALBUTEROL 2.5 MG/IPRATROPIUM 0.5 MG NEB (PRN) NEB (21:00)
[2017-03-13] MEDS ORDERED: SODIUM CHLOR 0.45% 1000 ML INJ 1,000 ML IV SCH (21:00)
[2017-03-13] MEDS: HEPARIN SODIUM - SQ 10,000 UNITS/ML VIAL SQ SCH (21:22)
[2017-03-13] MEDS: SODIUM CHLORIDE 0.9% FLUSH 10 ML FLUSH IV FLUSH SCH (21:22)
[2017-03-13] MEDS: CEFEPIME INJ 1,000 MG in SODIUM CHLORIDE 0.9% INJ 100 ML IV SCH (21:22)
[2017-03-14] VITALS (7 sets, daily range): BP systolic 94–125; BP diastolic 51–69; PULSE 86–95; RESP 18–20; TEMP 96.2–99.4; O2SAT 95–97
[2017-03-14] MEDS: HEPARIN SODIUM - SQ 10,000 UNITS/ML VIAL SQ SCH ×3 (05:29→20:31)
[2017-03-14 05:50] LABS: AUTOMATED NEUTROPHIL # 3.7 TH/MM3 (1.8-7.7); BASOPHIL % 0.7 % (0.0-2.0); EOSINOPHIL # 0.1 TH/MM3 (0-0.4); EOSINOPHIL % 1.1 % (0.0-4.0); HEMATOCRIT 38.1 % (35.0-46.0); HEMO FLAGS DIFF FINAL; LYMPH % 15.9 % (9.0-44.0); LYMPHOCYTE # 0.8 TH/MM3 (1.0-4.8); MEAN CELL VOLUME 88.7 FL (80.0-100.0); MEAN CORPUSCULAR HEMOGLOBIN 28.8 PG (27.0-34.0); MEAN CORPUSCULAR HGB CONC 32.5 % (32.0-36.0); MONO % 9.9 % (0.0-8.0); NEUT % 72.4 % (16.0-70.0); PLATELET COUNT 122 TH/MM3 (150-450); RED BLOOD COUNT 4.29 MIL/MM3 (4.00-5.30); RED CELL DISTRIBUTION WIDTH 21.7 % (11.6-17.2); WHITE BLOOD COUNT 5.2 TH/MM3 (4.0-11.0)
[2017-03-14 06:21] LABS: BICARBONATE 19.4 MEQ/L (21.0-32.0)
[2017-03-14 06:23] LABS: POTASSIUM 3.7 MEQ/L (3.5-5.1)
--- NOTE | 2017-03-14 07:51 | HHI.HP ---
[facility] No Primary Care Physician Admission Diagnosis possible pneumonia Diagnoses: (1) Pneumonia Diagnosis: Principal Chief Complaint: low oxygen level Travel History International Travel<30 Days: No Contact w/Intl Traveler <30 Da: No Traveled to Known Affected Are: No History of Present Illness patient is a 86 y/o female with history of HTN, hypothyroidism, hepatitis C, cirrhosis, recurrent UTI, anxiety, depression and delirium was transferred back to medical floor from the psych unit due to hypoxemia. most of the information was obtained from the medical record due to the patient's mental status. apparently while the patient was in the psych unit she was found to have a pulse ox of 80's. she started on broad spectrum IV antibiotic for possible pneumonia. at the time of my evaluation she was in no acute distress, but quite dry and just moaning to calling her name. Review of Systems ROS Limitations: Altered Mental Status, Poor Historian Past Family Social History Past Medical History HTN, hypothyroidism, hepatitis C, cirrhosis, recurrent UTI, anxiety, depression and delirium Past Surgical History Past Surgical History was not able to obtain. Reported Medications Reported Medications Simethicone 125 Mg Chw 125 Mg CHEW QID PRN Flexeril (Cyclobenzaprine HCl) 5 Mg Tab 5 Mg PO TID Bactroban Topical (Mupirocin) 22 Gm Cream 1 Applic TOPICAL BID Potassium Chloride Liq (Potassium Chloride) 20 Meq/15 Ml Soln 20 Meq PO TID Levsin-SL (Hyoscyamine Sulfate) 0.125 Mg Subl 0.125 Mg SL Q4H Lidoderm (Lidocaine) 5 % Adh..patch Demadex (Torsemide) 10 Mg Tab 10 Mg PO DAILY Senna-Tabs (Sennosides) 8.6 Mg Tab 8.6 Mg PO BID Miralax Powder (Polyethylene Glycol 3350 Powder) 17 Gm Powd 17 Gm PO DAILY Mix and dissolve one measuring cap-ful (17 grams) in water or juice. [Haloperidol Gel] 1 Ml TOPICAL Q4HR [Lorazepam Gel] 1 Ml TOPICAL Q4HR Voltaren (Diclofenac Sodium) 100 Gm Gel..gram. Metolazone 5 Mg Tab 5 Mg PO MONWEDFRI Prednisone 10 Mg Tab 10 Mg PO DAILY Benadryl Allergy (Diphenhydramine HCl) 25 Mg Cap Isosorbide Mononitrate 10 Mg Tab 10 Mg PO DAILY Take 2 doses 7 hours apart. Ativan (Lorazepam) 0.5 Mg Tab 0.5 Mg PO Q4H PRN Protonix (Pantoprazole Sodium) 40 Mg Tab 40 Mg PO DAILY Zofran (Ondansetron HCl) 4 Mg Tab 4 Mg PO Q6HR PRN Ultram (Tramadol HCl) 50 Mg Tab 25 Mg PO Q6H PRN Nitrostat SL (Nitroglycerin) 0.4 Mg Subl 0.4 Mg SL DIRECTED PRN 1 tablet under the tongue as needed for chest pain. Repeat every 5 minutes for a total of 3 DOSES or call 911 if NO relief. Levothyroxine (Levothyroxine Sodium) 100 Mcg Tab 100 Mcg PO DAILY [Ketoprofen Gel] 5 % TOPICAL TID Dulcolax Supp (Bisacodyl) 10 Mg Supp 10 Mg RECTAL DAILY PRN Proventil Hfa 6.7 GM Inh (Albuterol Sulfate) 90 Mcg/Act Aer 2 Puff INH Q4-6H PRN Claritin (Loratadine) 10 Mg Tablet Guaifenesin-Dm Liq (Guaifenesin/Dextromethorphan) 100-10 Mg/5 Ml Syrp Lidocaine Topical (Lidocaine HCl) 2 % Jel 1 Applic TOPICAL QID Ketoconazole Topical 2% Cream 1 Applic TOPICAL DAILY Allergies: Coded Allergies: Augmentin (Verified Allergy, Severe, 03/04/17) Beta Blockers (Verified Allergy, Severe, 03/04/17) Flagyl (Verified Allergy, Severe, 03/04/17) Levaquin (Verified Allergy, Severe, 03/04/17) Morphine (Verified Allergy, Severe, 03/04/17) Seafood (Verified Allergy, Severe, 03/04/17) Lasix (Verified Allergy, Intermediate, 03/04/17) Amoxicillin (Verified Allergy, Unknown, 03/04/17) Spironolactone (Verified Allergy, Unknown, 03/04/17) Active Ordered Medications Current Medications Sodium Chloride (NS 1000 ml Inj) 1,000 ml @ 50 mls/hr Q20H IV ; Start 03/13/17 at 21:00; Stop 03/13/17 at 21:00; Status DC Sodium Chloride (NS Flush) 2 ml UNSCH PRN IV FLUSH FLUSH AFTER USING IV ACCESS ; Start 03/13/17 at 20:30 Sodium Chloride (NS Flush) 2 ml BID IV FLUSH Last administered on 03/13/17 21: 22; Start 03/13/17 at 21:00 Ondansetron HCl (Zofran Inj) 4 mg Q6H PRN IVP NAUSEA OR VOMITING; Start at 20:30 Heparin Sodium (Porcine) (Heparin Inj) 5,000 units Q8H SQ Last administered on 03/14/17 05:29; Start 03/13/17 at 21:00 Naloxone HCl (Narcan Inj) 0.4 mg UNSCH PRN IV SEE LABEL COMMENTS; Start at 20:30 Bisacodyl 10 mg 10 mg DAILY PRN RECTAL SEVERE CONSITIPATION; Start 03/13/17 at 20:30 Cefepime HCl/ Sodium Chloride (Maxipime Inj/NS Inj) 100 ml @ 200 mls/hr Q12H IV Last administered on 03/13/17 21:22; Start 03/13/17 at 21:00 Albuterol/ Ipratropium (Duoneb Neb) 1 ampule Q6HR WHILE AWAKE NEB NEB ; Start 03/14/17 at 08:00 Albuterol/ Ipratropium 1 ampule 1 ampule Q2HR NEB PRN NEB SOB/WHEEZING; Start 03/13/17 at 21:00 Sodium Chloride (1/2 NS 1000 ml Inj) 1,000 ml @ 50 mls/hr Q20H IV Last administered on 03/13/17 21:21; Start 03/13/17 at 21:00 Family History was not able to obtain. Social History no history of smoking or drinking . Physical Exam Vital Signs Vital Signs Date Time Temp Pulse Resp B/P Pulse Ox O2 Delivery O2 Flow Rate FiO2 03/14/17 04:49 96 03/14/17 00:00 97.2 95 20 110/53 97 03/13/17 20:00 97.2 95 22 128/55 90 Physical Exam GENERAL:elderly female, looks dry- HEAD: Atraumatic. Normocephalic. No temporal or scalp tenderness. EYES: Pupils equal round and reactive. Extraocular motions intact. No scleral icterus. No injection or drainage. ENT: Nose without bleeding, purulent drainage or septal hematoma. Throat without erythema, tonsillar hypertrophy or exudate. Uvula midline. Airway patent. NECK: Trachea midline. No JVD or lymphadenopathy. Supple, nontender, no meningeal signs. CARDIOVASCULAR: Regular rate and rhythm without murmurs, gallops, or rubs. RESPIRATORY: Clear to auscultation. Breath sounds equal bilaterally. No wheezes , rales, or rhonchi. GASTROINTESTINAL: Abdomen soft, non-tender, nondistended. No hepato-splenomegaly , or palpable masses. No guarding. MUSCULOSKELETAL: Extremities without clubbing, cyanosis, or edema. No joint tenderness, effusion, or edema noted. No calf tenderness. Negative Homans sign bilaterally. NEUROLOGICAL:just moaning to calling her name. Laboratory Laboratory Tests Test 03/14/17 05:05 White Blood Count 5.2 Red Blood Count 4.29 Hemoglobin 12.4 Hematocrit 38.1 Mean Corpuscular Volume 88.7 Mean Corpuscular Hemoglobin 28.8 Mean Corpuscular Hemoglobin 32.5 Concent Red Cell Distribution Width 21.7 Platelet Count 122 Mean Platelet Volume 8.4 Neutrophils (%) (Auto) 72.4 Lymphocytes (%) (Auto) 15.9 Monocytes (%) (Auto) 9.9 Eosinophils (%) (Auto) 1.1 Basophils (%) (Auto) 0.7 Neutrophils # (Auto) 3.7 Lymphocytes # (Auto) 0.8 Monocytes # (Auto) 0.5 Eosinophils # (Auto) 0.1 Basophils # (Auto) 0.0 CBC Comment DIFF FINAL Differential Comment Sodium Level 145 Potassium Level 3.7 Chloride Level 114 Carbon Dioxide Level 19.4 Anion Gap 12 Blood Urea Nitrogen 22 Creatinine 1.04 Estimat Glomerular Filtration 50 Rate Random Glucose 63 Calcium Level 8.5 Result Diagram: 03/14/17 0505 03/14/17 0505 Assessment and Plan Assessment and Plan Metabolic Encephalopathy Paranoia Delirium HCAP, pneumonia - Continue cefepime IV -- Continue Duonebs - O2 nasal cannula keep O2 sat greater than 90%. Restraints ordered to keep patient from taking nasal cannula off. - Monitor respiratory status Bilateral Lower Extremity Edema - Exam appears consistent with chronic venous stasis changes, - Doppler U/S negative for DVT. Elevation. CHF, systolic Hypertension, chronic - Hold diuretics Hx of NIRAV during inpatient admission. BNP 529 -monitor BP for now Hypothyroidism Chronic back pain,hypothyroidism and vitamin d deficiency- hold PO meds for now due to her mental status. DNR status. DVT Prophylaxis: TEDs/SCDs d/w the patient's daughter and will likely proceed with hospice; the daughter to talk to the family for final decision. Code Status DNR Discussed Condition With the RN and the patient's daughter. Physician Certification 2 Midnight Certification Type: Admission for Inpatient Services Order for Inpatient Services The services are ordered in accordance with Medicare regulations or non- Medicare payer requirements, as applicable. In the case of services not specified as inpatient-only, they are appropriately provided as inpatient services in accordance with the 2-midnight benchmark. Estimated LOS (days): 2 days is the estimated time the patient will need to remain in the hospital, assuming treatment plan goals are met and no additional complications. Post-Hospital Plan: Not yet determined Problem Qualifiers (1) Pneumonia: Qualified Code: J18.9 - Pneumonia of both lower lobes due to infectious organism Sohail Rae MD Mar 14, 2017 07:51
[2017-03-14] MEDS: RESP: ALBUTEROL 2.5 MG/IPRATROPIUM 0.5 MG NEB (SCH) NEB ×3 (08:17→21:17)
[2017-03-14] MEDS: DEXT 5%-NACL 0.45% 1000 ML INJ 1,000 ML IV SCH (08:58)
[2017-03-14] MEDS: SODIUM CHLORIDE 0.9% FLUSH 10 ML FLUSH IV FLUSH SCH ×2 (08:58→20:31)
[2017-03-14] MEDS: CEFEPIME INJ 1,000 MG in SODIUM CHLORIDE 0.9% INJ 100 ML IV SCH ×2 (08:58→20:31)
[2017-03-15] VITALS (9 sets, daily range): BP systolic 97–130; BP diastolic 45–78; PULSE 76–127; RESP 17–36; TEMP 97.2–98.9; O2SAT 91–98
[2017-03-15] MEDS ORDERED: KETOROLAC TROMETHAMINE 30 MG/ML (IVP) VIAL IV PUSH ONE (01:45)
[2017-03-15] MEDS ORDERED: ACETAMINOPHEN 500 MG CPLT PO PRN (01:45)
[2017-03-15] MEDS: DEXT 5%-NACL 0.45% 1000 ML INJ 1,000 ML IV SCH (01:53)
[2017-03-15] MEDS: HEPARIN SODIUM - SQ 10,000 UNITS/ML VIAL SQ SCH ×3 (05:11→19:59)
[2017-03-15] MEDS: SODIUM CHLORIDE 0.9% FLUSH 10 ML FLUSH IV FLUSH SCH ×2 (07:25→20:00)
[2017-03-15] MEDS: RESP: ALBUTEROL 2.5 MG/IPRATROPIUM 0.5 MG NEB (SCH) NEB ×3 (08:01→19:00)
[2017-03-15] MEDS: CEFEPIME INJ 1,000 MG in SODIUM CHLORIDE 0.9% INJ 100 ML IV SCH (08:03)
[2017-03-15] MEDS ORDERED: BUMETANIDE INJ 1 MG/4 ML VIAL IV PUSH ONE (09:15)
--- NOTE | 2017-03-15 09:17 | HHI.PR ---
Subjective Remarks f/u; hypoxia still noncommunicative. noted that was on restraints due to agitation over night. with audible wheezing. remains afebrile. d/w the RN. Objective Vitals Vital Signs Date Time Temp Pulse Resp B/P Pulse Ox O2 Delivery O2 Flow Rate FiO2 03/15/17 08:01 94 Nasal Cannula 3.00 03/15/17 04:00 98.9 76 22 114/70 95 03/15/17 00:00 98.2 86 22 111/51 96 03/14/17 21:17 95 21 03/14/17 20:00 99.4 89 20 125/69 96 03/14/17 16:00 97.3 93 18 96/51 95 03/14/17 12:00 96.2 88 19 104/52 95 I/O 03/14/17 03/14/17 03/14/17 03/15/17 03/15/17 03/15/17 07:00 15:00 23:00 07:00 15:00 23:00 Intake Total 399 ml 550 ml 692 ml 872 ml Balance 399 ml 550 ml 692 ml 872 ml Intake Oral 0 ml 50 ml 120 ml IV Total 399 ml 500 ml 572 ml 872 ml # Voids 2 1 # Bowel Movements 0 Result Diagram: 03/14/17 0505 03/14/17 0505 Objective Remarks GENERAL: elderly female with audible wheezing- on restraints CARDIOVASCULAR: Regular rate and regular rhythm without murmurs, gallops, or rubs. RESPIRATORY: bilateral wheezing. GASTROINTESTINAL: Abdomen soft, non-tender, nondistended. Normal, active bowel sounds MUSCULOSKELETAL: Extremities without clubbing, cyanosis, or edema. NEURO: noncommunicative- moaning to calling her name. Procedures none Medications and IVs Current Medications Sodium Chloride (NS 1000 ml Inj) 1,000 ml @ 50 mls/hr Q20H IV ; Start 03/13/17 at 21:00; Stop 03/13/17 at 21:00; Status DC Sodium Chloride (NS Flush) 2 ml UNSCH PRN IV FLUSH FLUSH AFTER USING IV ACCESS ; Start 03/13/17 at 20:30 Sodium Chloride (NS Flush) 2 ml BID IV FLUSH Last administered on 03/13/17t 21: 22; Start 03/13/17 at 21:00 Ondansetron HCl (Zofran Inj) 4 mg Q6H PRN IVP NAUSEA OR VOMITING; Start at 20:30 Heparin Sodium (Porcine) (Heparin Inj) 5,000 units Q8H SQ Last administered on 03/15/17 05:11; Start 03/13/17 at 21:00 Naloxone HCl (Narcan Inj) 0.4 mg UNSCH PRN IV SEE LABEL COMMENTS; Start at 20:30 Bisacodyl 10 mg 10 mg DAILY PRN RECTAL SEVERE CONSITIPATION; Start 03/13/17 at 20:30 Cefepime HCl/ Sodium Chloride (Maxipime Inj/NS Inj) 100 ml @ 200 mls/hr Q12H IV Last administered on 03/15/17 08:03; Start 03/13/17 at 21:00; Stop at 09:02; Status DC Albuterol/ Ipratropium (Duoneb Neb) 1 ampule Q6HR WHILE AWAKE NEB NEB Last administered on 03/14/17 21:17; Start 03/14/17 at 08:00 Albuterol/ Ipratropium 1 ampule 1 ampule Q2HR NEB PRN NEB SOB/WHEEZING; Start 03/13/17 at 21:00 Sodium Chloride 1,000 ml @ 50 mls/hr Q20H IV Last administered on 03/13/17 21 :21; Start 03/13/17 at 21:00; Stop 03/14/17 at 07:59; Status DC Dextrose/Sodium Chloride (D5W-1/2 NS 1000 ml Inj) 1,000 ml @ 60 mls/hr [id number] IV Last administered on 03/15/17 01:53; Start 03/14/17 at 08:00 Acetaminophen (Tylenol) 500 mg Q4H PRN PO TEMP>100.4F,PAIN1-10,IRRITABLE Last administered on 03/15/17 08:03; Start 03/15/17 at 01:45 Ketorolac Tromethamine 15 mg 15 mg ONCE ONCE IV PUSH Last administered on 03/15 01:53; Start 03/15/17 at 01:45; Stop 03/15/17 at 01:48; Status DC Cefepime HCl/ Sodium Chloride (Maxipime Inj/NS Inj) 100 ml @ 200 mls/hr Q24H IV ; Start 03/16/17 at 09:00 A/P Assessment and Plan Metabolic Encephalopathy Paranoia Delirium restraints as needed. possible pneumonia vs fluid overload/ acute on chronic CHF - Continue cefepime IV -- Continue Duonebs - O2 nasal cannula keep O2 sat greater than 90%. Restraints ordered to keep patient from taking nasal cannula off. - Monitor respiratory status -stop IV fluid and give one dose of IV Bumex- continue to monitor Bilateral Lower Extremity Edema - Exam appears consistent with chronic venous stasis changes, - Doppler U/S negative for DVT. Elevation. CHF, systolic Hypertension, chronic - resume Bumex as noted above -monitor BP for now Chronic back pain,hypothyroidism and vitamin d deficiency- hold PO meds for now due to her mental status. DNR status. DVT Prophylaxis: TEDs/SCDs Discharge Planning previously had a long discussion with the family; will likely proceed with hospice; awaiting hospice evaluation. d/w the RN. Sohail Rae MD Mar 15, 2017 09:17
[2017-03-16] MEDS: HEPARIN SODIUM - SQ 10,000 UNITS/ML VIAL SQ SCH (04:15)
[2017-03-16] MEDS: SODIUM CHLORIDE 0.9% FLUSH 10 ML FLUSH IV FLUSH SCH (07:43)
[2017-03-16 08:00] VITALS: BP 87/42; PULSE 84; RESP 18; TEMP 96.5; O2SAT 94
[2017-03-16] MEDS ORDERED: SODIUM CHLOR 0.45% 1000 ML INJ 1,000 ML IV SCH (08:00)
[2017-03-16] MEDS: RESP: ALBUTEROL 2.5 MG/IPRATROPIUM 0.5 MG NEB (SCH) NEB (08:00)
[2017-03-16 08:16] VITALS: O2SAT 95
[2017-03-16] MEDS ORDERED: CEFEPIME INJ 1,000 MG in SODIUM CHLORIDE 0.9% INJ 100 ML IV SCH (09:00)
--- NOTE | 2017-03-16 09:24 | HHI.PR ---
Subjective Remarks more alert and responsive today- still confused and on restraints. afebrile. wheezing has improved. Objective Vitals Vital Signs Date Time Temp Pulse Resp B/P Pulse Ox O2 Delivery O2 Flow Rate FiO2 03/16/17 08:16 95 Nasal Cannula 3.00 03/16/17 08:00 96.5 84 18 87/42 94 03/15/17 23:33 97.2 87 18 125/78 96 03/15/17 20:00 98.9 83 17 130/56 94 03/15/17 19:00 98 Nasal Cannula 3.00 03/15/17 16:00 98.6 86 27 97/45 98 03/15/17 12:00 98.8 107 36 101/62 91 I/O 03/15/17 03/15/17 03/15/17 03/16/17 03/16/17 03/16/17 06:59 14:59 22:59 06:59 14:59 22:59 Intake Total 872 ml 0 ml 0 ml 0 ml Balance 872 ml 0 ml 0 ml 0 ml Intake Oral 0 ml 0 ml 0 ml IV Total 872 ml # Voids 1 1 3 # Bowel Movements 0 0 0 Result Diagram: 03/14/17 0505 03/14/17 0505 Objective Remarks GENERAL: elderly female in no acute distress- on restraints CARDIOVASCULAR: Regular rate and regular rhythm without murmurs, gallops, or rubs. RESPIRATORY: bilateral air entry present with no wheezing. GASTROINTESTINAL: Abdomen soft, non-tender, nondistended. Normal, active bowel sounds MUSCULOSKELETAL: Extremities without clubbing, cyanosis, or edema. NEURO: more alert today- however still confused. Procedures none Medications and IVs Current Medications Sodium Chloride (NS 1000 ml Inj) 1,000 ml @ 50 mls/hr Q20H IV ; Start 03/13/17 at 21:00; Stop 03/13/17 at 21:00; Status DC Sodium Chloride (NS Flush) 2 ml UNSCH PRN IV FLUSH FLUSH AFTER USING IV ACCESS ; Start 03/13/17 at 20:30 Sodium Chloride (NS Flush) 2 ml BID IV FLUSH Last administered on 03/16/17t 07: 43; Start 03/13/17 at 21:00 Ondansetron HCl (Zofran Inj) 4 mg Q6H PRN IVP NAUSEA OR VOMITING; Start at 20:30 Heparin Sodium (Porcine) (Heparin Inj) 5,000 units Q8H SQ Last administered on 03/16/17 04:15; Start 03/13/17 at 21:00 Naloxone HCl (Narcan Inj) 0.4 mg UNSCH PRN IV SEE LABEL COMMENTS; Start at 20:30 Bisacodyl 10 mg 10 mg DAILY PRN RECTAL SEVERE CONSITIPATION; Start 03/13/17 at 20:30 Cefepime HCl/ Sodium Chloride (Maxipime Inj/NS Inj) 100 ml @ 200 mls/hr Q12H IV Last administered on 03/15/17 08:03; Start 03/13/17 at 21:00; Stop at 09:02; Status DC Albuterol/ Ipratropium (Duoneb Neb) 1 ampule Q6HR WHILE AWAKE NEB NEB Last administered on 03/14/17 21:17; Start 03/14/17 at 08:00 Albuterol/ Ipratropium 1 ampule 1 ampule Q2HR NEB PRN NEB SOB/WHEEZING; Start 03/13/17 at 21:00 Sodium Chloride 1,000 ml @ 50 mls/hr Q20H IV Last administered on 03/13/17 21 :21; Start 03/13/17 at 21:00; Stop 03/14/17 at 07:59; Status DC Dextrose/Sodium Chloride (D5W-1/2 NS 1000 ml Inj) 1,000 ml @ 60 mls/hr [id number] IV Last administered on 03/15/17 01:53; Start 03/14/17 at 08:00; Status Hold Acetaminophen (Tylenol) 500 mg Q4H PRN PO TEMP>100.4F,PAIN1-10,IRRITABLE Last administered on 03/15/17 08:03; Start 03/15/17 at 01:45 Ketorolac Tromethamine 15 mg 15 mg ONCE ONCE IV PUSH Last administered on 03/15 01:53; Start 03/15/17 at 01:45; Stop 03/15/17 at 01:48; Status DC Cefepime HCl/ Sodium Chloride (Maxipime Inj/NS Inj) 100 ml @ 200 mls/hr Q24H IV Last administered on 03/16/17 07:36; Start 03/16/17 at 09:00 Bumetanide 0.5 mg 0.5 mg ONCE ONCE IV PUSH Last administered on 03/15/17 09: 22; Start 03/15/17 at 09:15; Stop 03/15/17 at 09:18; Status DC Sodium Chloride (1/2 NS 1000 ml Inj) 1,000 ml @ 60 mls/hr [id number] IV Last administered on 03/16/17 07:43; Start 03/16/17 at 08:00 A/P Assessment and Plan Metabolic Encephalopathy Paranoia Delirium restraints as needed. possible pneumonia vs fluid overload/ acute on chronic CHF - started on cefepime -- Continue Duonebs - O2 nasal cannula keep O2 sat greater than 90%. Restraints ordered to keep patient from taking nasal cannula off. - Monitor respiratory status Bilateral Lower Extremity Edema - Exam appears consistent with chronic venous stasis changes, - Doppler U/S negative for DVT. Elevation. CHF, systolic Hypertension, chronic - resume Bumex as noted above -monitor BP for now Chronic back pain,hypothyroidism and vitamin d deficiency- hold PO meds for now due to her mental status. DNR status. DVT Prophylaxis: TEDs/SCDs Discharge Planning previously had a long discussion with the family. dc to hospice. see med list. time spent 32 min. Sohail Rae MD Mar 16, 2017 09:24
--- NOTE | 2017-03-16 09:26 | HHI.DCPOC ---
Discharge Care Plan Diagnosis: (1) Altered mental status Your Health Problems Are: Difficulty with ADL Goals to Promote Your Health * To prevent worsening of your condition and complications * To maintain your health at the optimal level Directions to Meet Your Goals Take your medications as prescribed Follow your dietary instruction Follow activity as directed Keep your appointments as scheduled Take your immunizations and boosters as scheduled If your symptoms worsen call your PCP, if no PCP go to Urgent Care Center or Emergency Room Smoking is Dangerous to Your Health. Avoid second hand smoke Call the 24-hour hour crisis hotline for domestic abuse at Sohail Rae MD Mar 16, 2017 09:26
--- NOTE | 2017-03-16 09:27 | HHI.DS ---
Discharge Summary Admission Date Mar 13, 2017 at 17:24 Discharge Date: Mar 16, 2017 Admitting Diagnosis possible pneumonia (1) Pneumonia ICD Code: J18.9 Diagnosis: Principal Procedures none Brief History - From Admission patient is a 86 y/o female with history of HTN, hypothyroidism, hepatitis C, cirrhosis, recurrent UTI, anxiety, depression and delirium was transferred back to medical floor from the psych unit due to hypoxemia. most of the information was obtained from the medical record due to the patient's mental status. apparently while the patient was in the psych unit she was found to have a pulse ox of 80's. she started on broad spectrum IV antibiotic for possible pneumonia. at the time of my evaluation she was in no acute distress, but quite dry and just moaning to calling her name. CBC/BMP: 03/14/17 0505 03/14/17 0505 Significant Findings Laboratory Tests Test 03/14/17 05:05 Red Cell Distribution Width 21.7 % (11.6-17.2) Platelet Count 122 TH/MM3 (150-450) Neutrophils (%) (Auto) 72.4 % (16.0-70.0) Monocytes (%) (Auto) 9.9 % (0.0-8.0) Lymphocytes # (Auto) 0.8 TH/MM3 (1.0-4.8) Chloride Level 114 MEQ/L (98-107) Carbon Dioxide Level 19.4 MEQ/L (21.0-32.0) Blood Urea Nitrogen 22 MG/DL (7-18) Creatinine 1.04 MG/DL (0.50-1.00) Estimat Glomerular Filtration 50 ML/MIN (>89) Rate Random Glucose 63 MG/DL (74-106) PE at Discharge GENERAL: elderly female in no acute distress- on restraints CARDIOVASCULAR: Regular rate and regular rhythm without murmurs, gallops, or rubs. RESPIRATORY: bilateral air entry present with no wheezing. GASTROINTESTINAL: Abdomen soft, non-tender, nondistended. Normal, active bowel sounds MUSCULOSKELETAL: Extremities without clubbing, cyanosis, or edema. NEURO: more alert today- however still confused. Hospital Course Metabolic Encephalopathy Paranoia Delirium restraints as needed. possible pneumonia vs fluid overload/ acute on chronic CHF - started on cefepime -- Continue Duonebs - O2 nasal cannula keep O2 sat greater than 90%. Restraints ordered to keep patient from taking nasal cannula off. - Monitor respiratory status -received a dose of bumex Bilateral Lower Extremity Edema - Exam appears consistent with chronic venous stasis changes, - Doppler U/S negative for DVT. Elevation. CHF, systolic Hypertension, chronic - received a dose of Bumex as noted above -monitor BP for now Chronic back pain,hypothyroidism and vitamin d deficiency- hold PO meds for now due to her mental status. DNR status. DVT Prophylaxis: TEDs/SCDs Pt Condition on Discharge: Deteriorating Discharge Disposition: Hospice/Med Facility Discharge Time: > 30 minutes Discharge Instructions Speech Therapy-Diet Recommends: Honey Thickened Liquids, Pureed Activities you can perform: Regular-No Restrictions Follow up Referrals: PCP Follow-up Continued Medications: Albuterol 6.7 GM Inh (Proventil Hfa 6.7 GM Inh) 90 Mcg/Act Aer 2 PUFF INH Q4-6H PRN SHORTNESS OF BREATH #1 Ref 0 INHALER Cholecalciferol (Vitamin D3) 5,000 Unit Cap 5000 UNITS PO DAILY Nutritional Supplement #30 CAP Levothyroxine (Levothyroxine) 100 Mcg Tab 100 MCG PO DAILY Thyroid #30 Ref 0 TAB Lidocaine (Lidoderm) 5 % Adh..patch Lidocaine Topical (Lidocaine Topical) 2 % Jel 1 APPLIC TOPICAL QID Pain Management Ref 0 GM Lorazepam (Ativan) 0.5 Mg Tab 0.5 MG PO Q4H PRN For mild anxiety / dyspnea Ref 0 TAB Megestrol Liq (Megestrol Liq) 40 Mg/Ml Susp 400 MG PO DAILY appetite enhancer #120 BOTTLE Mupirocin Topical (Bactroban Topical) 22 Gm Cream 1 APPLIC TOPICAL BID Mgmt Bacterial Infection #1 Ref 0 TUBE Prednisone (Prednisone) 5 Mg Tab 5 MG PO DAILY Inflammation #30 TAB Discontinued Medications: Aripiprazole (Abilify) 2 Mg Tab 1 MG PO DAILY PRN paranoia #15 TAB Bisacodyl Supp (Dulcolax Supp) 10 Mg Supp 10 MG RECTAL DAILY PRN CONSTIPATION #12 Ref 0 SUPP Cyclobenzaprine (Flexeril) 5 Mg Tab 5 MG PO TID PRN Muscle Spasm #90 Ref 0 TAB Cyclobenzaprine (Flexeril) 10 Mg Tab 5 MG PO Q8H PRN MUSCLE SPASM #10 TAB Haloperidol (Haloperidol) 1 Mg Tab 1 MG PO BID Agitation #30 TAB Isosorbide Mononitrate (Isosorbide Mononitrate) 10 Mg Tab 10 MG PO DAILY Take 2 doses 7 hours apart. Prevent Chest Pain #60 TAB Nitrofurantoin Monohydrate Macrocrystals (Nitrofurantoin Monohydrate Macrocrystals) 100 Mg Cap 100 MG PO BIDPC UTI #10 CAP Nitroglycerin SL (Nitrostat SL) 0.4 Mg Subl 0.4 MG SL DIRECTED 1 tablet under the tongue as needed for chest pain. Repeat every 5 minutes for a total of 3 DOSES or call 911 if NO relief. PRN CHEST PAIN #100 Ref 0 TAB.SL Potassium Chloride Liq (Potassium Chloride Liq) 20 Meq/15 Ml Soln 20 MEQ PO TID Electrolyte Replacement Ref 0 ML Risperidone (Risperdal) 0.25 Mg Tab 0.25 MG PO Q12HR Agitation #30 TAB Simethicone (Simethicone) 125 Mg Chw 125 MG CHEW QID PRN GAS RETENTION Ref 0 TAB ([Haloperidol Gel]) 1 ML TOPICAL Q4HR ([Ketoprofen Gel]) 5 % TOPICAL TID ([Lorazepam Gel]) 1 ML TOPICAL Q4HR Sohail Rae MD Mar 16, 2017 09:27
[2017-03-16] MEDS ORDERED: LORazepam 2 MG/ML VIAL IV PUSH PRN (10:00)
--- NOTE | 2017-03-20 11:46 | PQ ---
Physician Query Response Document PATIENT: WILBERT BLUE : 1930 ADMIT DATE: 03/13/2017 5:24 PM DISCH DATE: 03/16/2017 12:24 PM RESPONDING PROVIDER #: [email or web address] QUERY TEXT: Acuity Specificity Systolic CHF is documented in the Medical Record. Please specify the acuity of this condition with te shannon such as: -- Acute -- Chronic -- Acute and chronic -- Acute on chronic -- Other (please specify in the medical record) If you have any additional questions/comments and/or concerns, please do not hesitate to reach out to the [facility]/Coding Hotline, Ext. [phone]. The patient's Clinical Indicators include: Refer to D/S under Hospital Course: CHF, systolic possible pneumonia vs fluid overload/ acute on chronic CHF - O2 nasal cannula keep O2 sat greater than 90%. Restraints ordered to keep patient from taking nasal cannula off. - Monitor respiratory status -stop IV fluid and give one dose of IV Bumex- continue to monitor Query created by: Kenya Falk on 03/17/2017 4:38 PM RESPONSE TEXT: Acute on chronic CHF Electronically signed by: Sohail Rae MD 03/20/2017 11:42 AM
== END 2017-03-16 12:24 | disposition hospice, inpatient (51) | DRG 193 ==
LOC: N07A 17:24
PROVIDERS: ADMIT Internal Medicine; ATTEND Internal Medicine
DX: J18.9 Pneumonia, unspecified organism (principal); G93.41 Metabolic encephalopathy; I50.23 Acute on chronic systolic (congestive) heart failure; E55.9 Vitamin D deficiency, unspecified; Y95 Nosocomial condition; I10 Essential (primary) hypertension; B19.20 Unspecified viral hepatitis C without hepatic coma; E03.9 Hypothyroidism, unspecified; Z87.440 Personal history of urinary (tract) infections; F41.9 Anxiety disorder, unspecified; F32.9 Major depressive disorder, single episode, unspecified; F22 Delusional disorders; R60.0 Localized edema; G89.29 Other chronic pain; M54.9 Dorsalgia, unspecified; Z66 Do not resuscitate; Z78.1 Physical restraint status; Z51.5 Encounter for palliative care
CPT/HCPCS: 80048; 85025; 94640; 94664; J0692; J1644; J1885; J2060